=== PATIENT | female | born 1975 | race Caucasian/White ===

== ENCOUNTER 2020-06-16 15:41 | Emergency (ER) | payer OTHER, SELFPAY ==
[2020-06-16 16:58] VITALS: BP 138/84; PULSE 98; RESP 18; TEMP 36; O2SAT 100
--- NOTE | 2020-06-16 18:18 | PC.NURSE ---
Pt noted to be getting into a vehicle that had pulled up in the [address] outside of ED. Pt had been in and out of doors multiple times prior and after triage assessment.
== END 2020-06-16 18:20 | disposition left against medical advice (07) ==
LOC: ANHED 18:45
PROVIDERS: PCP Physician Assistant
DX: R50.9 Fever, unspecified (principal)
CPT/HCPCS: 99199

== ENCOUNTER 2023-09-23 17:55 | Emergency (ER) | payer OTHER, SELFPAY ==
[2023-09-23] VITALS (12 sets, daily range): BP systolic 150–179; BP diastolic 86–103; PULSE 85; RESP 16; TEMP 36.9; O2SAT 99–100
--- NOTE | ~2023-09-23 | XR_ITS ---
XR chest 1V portable Ordering provider: Job Crawford MD History: 48 years Female with . sob/chest pain x1 month . Comparison: June 06 2009 FINDINGS: MEDIASTINUM: The cardiac silhouette is not enlarged. LUNGS: No infiltrates, effusions or pneumothorax. Slightly prominent markings in the left lower lobe area. OTHER: No free air under the diaphragm. Degenerative changes of the spine. Postoperative changes in the right humerus. IMPRESSION: No acute cardiopulmonary pathology. Reviewed, dictated and finalized at location A.
--- NOTE | 2023-09-23 18:26 | ED.GENADULT ---
HPI - General Adult General Chief complaint: Extremity Problem,Nontraumatic Stated complaint: left leg swelling Time Seen by Provider: 09/23/23 18:08 Source: patient Mode of arrival: ambulatory Limitations: no limitations History of Present Illness HPI narrative: Patient is a 48-year-old female with left greater than right lower extremity edema chronically for the past 3 years. She also has chronic small nonhealing openings on the legs which are also present for the past 3 years. She says it is worse at this time. She also has some nodules which are chronic as well. And she has some spots on her face. All in all she is complaining of concerns about sepsis. Her primary doctor sent her to the ER at this time as they cannot get her into the office right away. She also has a cough and congestion for the past week. Onset (ago): year(s) (3) Location: lower extremity ( Bilateral; left worse than right) Radiation: non-radiation Severity: moderate Severity scale (1-10): 5 Quality: aching Pain Consistency: intermittent Relieving factors: none and other ( she takes Lasix daily) Exacerbating factors: other ( she has a remote history of methamphetamine use) Associated symptoms: denies other symptoms Treatments prior to arrival: none Related Data Home Medications Medication Instructions Recorded Confirmed folic acid 1 mg tablet 1 mg PO DAILY 09/23/23 09/23/23 furosemide 40 mg tablet 40 mg PO TID 09/23/23 09/23/23 Allergies Allergy/AdvReac Type Severity Reaction Status Date / Time naproxen Allergy Mild N/V Unverified 06/16/20 17:03 ibuprofen Allergy Unknown makes Verified 06/16/20 17:03 heart flutter Penicillins Allergy Unknown Unknown Verified 06/16/20 17:03 codeine AdvReac Unknown Nausea Unverified 06/16/20 17:03 CEFADROXIL HYDRATE Allergy Unknown Elevates Uncoded 06/16/20 17:03 B/P PMFSH Social History Social History Substance use type: methamphetamine Gender identity (if verbalized by the patient): Female Exam Const: General: no acute distress Nutritional Appearance: well nourished Orientation/consciousness: patient oriented x3 Limitations: no limitations HENMT: Head: normal to inspection Ears: external ears normal Face/Nose/Sinus: Normal external nose present Eyes: Conjunctivae: conjunctivae normal Pupils: Equal, round and reactive pupils present EOM: EOMs intact bilaterally Neck: Neck: normal visual inspection Chest: Chest palpation & inspection: normal inspection of the chest Resp: Effort & Inspection: normal respiratory effort and not labored Auscultation: clear to auscultation bilaterally Cardio: Rate: regular rate Rhythm: regular rhythm Heart sounds: no murmurs GI: Inspection: non-distended GI Palp: Yes Soft to palpation and No Tenderness to palpation present (GI) Auscultation: normal bowel sounds : General: Yes bladder normal to palpation Back/Spine/Pelvis: Back: no CVA tenderness Skin: General skin exam: No normal color Rashes: rash noted Wounds: wound noted Other: patient has bilateral lower extremity lymphedema in the left worse than the right chronically; there are multiple small dime-sized excoriated areas without signs of cellulitis locally on the legs; her right greater than the left lower extremity has redness; she has nodules on her hand of the right thenar area as well as some areas of the chin which are slightly excoriated inflamed Neuro: General: patient oriented x3 Cranial nerves: Yes Nystagmus not present Speech: normal speech Extrem: General: normal to inspection Psych: Mental Status: mental status grossly normal Affect: normal affect Attitude: cooperative Course Vital Signs Vital signs: Vital Signs Temperature 36.9 C 09/23/23 17:58 Pulse Rate 85 09/23/23 17:58 Respiratory Rate 16 09/23/23 17:58 Blood Pressure 166/101 H 09/23/23 17:58 Pulse Oximetry 100 09/23/23 17
[2023-09-23 18:43] LABS: Basophils Absolute Auto 0.09 K/mm3 (0.00-0.10); Basophils Percent Auto 1.2 % (0.0-1.0); Eosinophils Absolute Auto 0.14 K/mm3 (0.02-0.50); Eosinophils Percent Auto 1.9 % (1.0-6.0); Hematocrit 33.9 % (35.0-49.0); Hemoglobin 10.6 g/dL (12.0-15.0); Immature Granulocyte Absolute 0.01 K/mm3 (0.00-0.00); Immature Granulocyte Percent A 0.1 % (0.0-0.0); Lymphocytes Absolute Auto 2.29 K/mm3 (1.10-4.50); Lymphocytes Percent Auto 31.7 % (18.0-42.0); Mean Corpuscular HGB Conc 31.3 g/dL (32-36); Mean Corpuscular Hemoglobin 26.5 pg (27.0-31.0); Mean Corpuscular Volume 84.8 fL (78.0-102.0); Mean Platelet Volume 11.4 fl (9.2-11.8); Monocytes Percent Auto 5.5 % (2.0-11.0); Neutrophils Percent Auto 59.6 % (50.0-70.0); Platelet Count Result 224 K/mm3 (150-420); Red Cell Distribution Width 17.1 % (11.6-14.4); White Blood Count 7.2 K/mm3 (4.8-10.8)
--- NOTE | 2023-09-23 18:55 | PC.NURSE ---
assumed care. report received from Nehemias MOODY
--- NOTE | 2023-09-23 18:56 | PC.NURSE ---
warm blanket given, call cummings in reach. report to natalie fernando.
[2023-09-23 18:57] LABS: Alanine Aminotransferase 16 U/L (14-59); Albumin Level 3.4 g/dL (3.4-5.0); Alkaline Phosphatase 101 U/L (46-116); Anion Gap 9 mmol/L (4-12); Aspartate Amino Transferase 14 U/L (15-37); Bilirubin,Total 0.2 mg/dL (0.00-1.00); Blood Urea Nitrogen 13 mg/dL (7-18); Calcium 8.3 mg/dL (8.5-10.1); Carbon Dioxide 25 mmol/L (21-32); Chloride 104 mmol/L (98-108); Estimated CRCL calculation 49 ml/min; Estimated Glomerular Filt Rate 44; Glucose 74 mg/dL (70-99); Osmolality Calculated 285 mOsm/kg (285-295); Sodium 138 mmol/L (136-145); Total Protein 7.5 g/dL (6.4-8.2)
[2023-09-23 19:00] LABS: Lactic Acid Reflex 1.2 mmol/L (0.4-2.0)
--- NOTE | 2023-09-23 19:05 | PC.NURSE ---
patient is resting on stretcher. all lab work has posted. ER provider notified.
[2023-09-23] MEDS: POTASSIUM CHLORIDE 20 MEQ ER TABLET PO (19:29)
[2023-09-23] MEDS: SULFAMETHOXAZOLE/TRIMETHOPRIM 800/160 MG DS TABLET 1 TAB PO (19:29)
--- NOTE | 2023-09-30 12:12 | PC.NURSE ---
final blood culture reports x2 reviewed. no growth after 5 days. no change in plan of care
--- NOTE | 2023-09-30 12:17 | PC.NURSE ---
final blood culture reports x2 reviewed. no growth after 5 days. no change in plan of care
== END 2023-09-23 19:45 | disposition home or self-care (01) ==
PROVIDERS: Emergency Provider Emergency Medicine; PCP Nurse Practitioner Family
DX: L03.119 Cellulitis of unspecified part of limb (principal); R60.0 Localized edema; Z79.899 Other long term (current) drug therapy
CPT/HCPCS: 36415; 71045; 80053; 83605; 85025; 87040; 99283; A9270

== ENCOUNTER 2023-09-30 17:39 | Emergency (ER) | payer OTHER, SELFPAY ==
[2023-09-30] VITALS (17 sets, daily range): BP systolic 140–187; BP diastolic 75–109; PULSE 80; RESP 24; TEMP 36.4; O2SAT 96–100
--- NOTE | ~2023-09-30 | CT_ITS ---
CT abdomen pelvis wo con Ordering provider: Job Crawford MD History: 48 years Female with . Onset today, abdominal pain/nausea/vomiting/diarrhea . Comparison: None. Technique: CT abdomen and pelvis with IV and without oral contrast. Automated exposure control and it erative reconstruction technique were employed. The dose-length product was 375.09 mGy-cm. Findings: Left breast implant. VISUALIZED LOWER CHEST: Normal. Possible tiny nodule in the middle lobe. UPPER ABDOMINAL ORGANS: Liver: Hepatomegaly. Slightly dilated CBD measuring 1.1 cm. Gallbladder: Status post cholecystectomy. Spleen: Normal. Stomach/duodenum: Postoperative changes in the stomach. Pancreas: Normal. Adrenals: Normal. Kidneys: Normal. PELVIC ORGANS: The bladder is normal. BOWEL AND MESENTERY: Colon: No evidence of diverticulitis. Appendix is not demonstrated. Small Bowel: Dilated small bowel is noted with thickening seen in the pelvis. This thickening may ind icate ischemia versus inflammatory changes.. Crohn's disease cannot be excluded. Peritoneum/mesentery: No free air seen. Minimal ascites is seen in the right and left paracolic gutte r and around the liver. Minimal fluid seen in the pelvis. No mesenteric lymphadenopathy. RETROPERITONEUM: Mild atheromatous disease of the abdominal aorta. No retroperitoneal lymphadenopat hy. Small para-aortic lymph nodes are noted. MUSCULOSKELETAL: Superficial soft tissues: A inguinal lymph nodes are noted with the largest on the right side measure s 1.7 cm. The superficial soft tissues are normal. Bones: Age appropriate degenerative changes of the spine. IMPRESSION: 1. Dilated small bowel with thickening distally suggestive of obstruction. An area of thickened sonam l in the pelvis may indicate ischemia versus inflammatory changes or Crohn's disease. 2. Minimal fluid in the pelvis, paracolic gutters and around the liver. Reviewed, dictated and finalized at location A. IMPRESSION: 1. Dilated small bowel with thickening distally suggestive of obstruction. An area of thickened bowel in the pelvis may indicate ischemia versus inflammatory changes or Crohn's disease. 2. Minimal fluid in the pelvis, paracolic gutters and around the liver.
--- NOTE | ~2023-09-30 | XR_ITS ---
XR abdomen gastric tube insert Ordering provider: Job Crawford MD History: . NG TUBE placement . Comparison: None. FINDINGS: The nasogastric tube is seen in the distal esophagus. BOWEL: Slightly dilated bowel loops in the upper abdomen with air-fluid level. Follow-up advised. ORGANOMEGALY: None. SIGNIFICANT PATHOLOGIC CALCIFICATIONS: None. OTHER: No free air is seen under the diaphragm. IMPRESSION: NG tube in the distal esophagus. Dilated small bowel loops. Follow-up advised. Reviewed, dictated and finalized at location A.
--- NOTE | ~2023-09-30 | XR_ITS ---
XR abdomen gastric tube rechec Ordering provider: Job Crawford MD History: . NG TUBE RE CHECK. . Comparison: September 30, 2023 FINDINGS/impression: The nasogastric tube is advanced slightly compared to the previous examination but the sidehole is at gastroesophageal junction. Advancement by about 2 to 3 cm is advised. BOWEL: Slightly dilated bowel loops. Reviewed, dictated and finalized at location A.
--- NOTE | 2023-09-30 17:49 | ED.ABDPAIN ---
HPI - Abdominal Pain General Chief Complaint: Abdominal Pain Stated Complaint: abdominal pain Time Seen by Provider: 09/30/23 17:49 Source: patient Mode of arrival: ambulatory Limitations: no limitations History of Present Illness HPI narrative: Patient is a 48-year-old female with mid epigastric abdominal pain and lower abdominal pain for the past day. She is having associated nausea and vomiting. She had diarrhea today. Normal bowel movement yesterday. Patient has chronic lower extremity edema and lymphedema. She is on antibiotics for bilateral lower extremity cellulitis from the other day of Bactrim. MD elicited complaint: abdominal pain Pertinent past history: none Onset (ago): day(s) (1) Pain Consistency: constant Location: diffuse Severity: moderate Pain scale (0-10): 8 Quality: cramping, stabbing, fullness and sharp Radiation: none Migration to: no migration Exacerbating factors: nothing Relieving factors: nothing Associated symptoms: nausea, vomiting and diarrhea Related Data Home Medications Medication Instructions Recorded Confirmed furosemide 40 mg tablet 40 mg PO TID 09/23/23 09/30/23 Allergies Allergy/AdvReac Type Severity Reaction Status Date / Time naproxen Allergy Mild N/V Verified 09/30/23 18:58 ibuprofen Allergy Unknown makes Verified 09/30/23 18:58 heart flutter Penicillins Allergy Unknown Unknown Verified 09/30/23 18:58 codeine AdvReac Unknown Nausea Verified 09/30/23 18:58 CEFADROXIL HYDRATE Allergy Unknown Elevates Uncoded 06/16/20 17:03 B/P Review of Systems Review of Systems: All systems reviewed & are unremarkable except as noted in HPI and below Constitutional: Constitutional: Reports no additional constitutional complaints Eyes: Eyes: Reports no additional eye complaints ENT: Reports system reviewed and no additional complaints, except as documented Cardiovascular: Cardiovascular: Reports no additional cardiovascular complaints Respiratory: Respiratory: Reports no additional respiratory complaints Gastrointestinal: Gastrointestinal: Reports no additional gastrointestinal complaints Genitourinary: Genitourinary: Reports no additional female genitourinary complaints Musculoskeletal: Musculoskeletal: Reports no additional musculoskeletal complaints Integumentary/Breasts: Skin/Breast: Reports system reviewed and no additional complaints, except as docu Neurologic: Reports system reviewed and no additional complaints, except as documented Psychiatric: Psychiatric: Reports no additional psychiatric complaints Endocrine: Endocrine: Reports no additional endocrine complaints Hematologic/Lymphatic: Hematologic/Lymphatic: Reports no additional hematologic/lymphatic complaints Allergic/Immunologic: Allergic/Immunologic: Reports no additional allergic/immunologic complaints PMFSH Social History Social History Substance use type: methamphetamine Gender identity (if verbalized by the patient): Female Exam Const: General: ill appearing Nutritional Appearance: well nourished Orientation/consciousness: patient oriented x3 HENMT: Head: normal to inspection Ears: external ears normal Face/Nose/Sinus: Normal external nose present Eyes: Conjunctivae: conjunctivae normal Pupils: Equal, round and reactive pupils present EOM: EOMs intact bilaterally Neck: Neck: normal visual inspection Chest: Chest palpation & inspection: normal inspection of the chest Resp: Effort & Inspection: normal respiratory effort and not labored Auscultation: clear to auscultation bilaterally Cardio: Rate: regular rate Rhythm: regular rhythm Heart sounds: no murmurs GI: Inspection: distended GI Palp: Yes Soft to palpation, Yes Tenderness to palpation present (GI) ( Diffuse), Yes Guarding due to palpation present (GI), No Rigid due to palpation, No Hernia present, Yes Palpable mass present ( mid abdomen) and Yes Rebound
[2023-09-30 18:30] LABS: Basophils Absolute Auto 0.06 K/mm3 (0.00-0.10); Basophils Percent Auto 0.5 % (0.0-1.0); Eosinophils Absolute Auto 0.06 K/mm3 (0.02-0.50); Eosinophils Percent Auto 0.5 % (1.0-6.0); Hematocrit 41.2 % (35.0-49.0); Hemoglobin 12.8 g/dL (12.0-15.0); Immature Granulocyte Absolute 0.05 K/mm3 (0.00-0.00); Immature Granulocyte Percent A 0.5 % (0.0-0.0); Lymphocytes Absolute Auto 1.49 K/mm3 (1.10-4.50); Lymphocytes Percent Auto 13.6 % (18.0-42.0); Mean Corpuscular HGB Conc 31.1 g/dL (32-36); Mean Corpuscular Hemoglobin 26.2 pg (27.0-31.0); Mean Corpuscular Volume 84.4 fL (78.0-102.0); Mean Platelet Volume 10.6 fl (9.2-11.8); Monocytes Absolute Auto 0.58 K/mm3 (0.10-0.90); Monocytes Percent Auto 5.3 % (2.0-11.0); Neutrophils Absolute Auto 8.73 K/mm3 (1.70-7.20); Neutrophils Percent Auto 79.6 % (50.0-70.0); Platelet Count Result 307 K/mm3 (150-420); Red Blood Count 4.88 M/mm3 (4.20-5.40); Red Cell Distribution Width 16.8 % (11.6-14.4)
[2023-09-30] MEDS: ONDANSETRON INJ 4 MG/2 ML VIAL IV PUSH ×2 (18:35→22:55)
[2023-09-30] MEDS: MORPHINE SULFATE (*CRX) 4 MG/ML INJ IV PUSH ×3 (18:35→22:55)
[2023-09-30 18:46] LABS: INR 0.9; Partial Thromboplastin Time 24.7 Sec (23.9-30.70); Prothrombin Time 9.7 Seconds (9.50-12.1)
[2023-09-30 18:48] LABS: Alanine Aminotransferase 21 U/L (14-59); Albumin Level 3.3 g/dL (3.4-5.0); Alkaline Phosphatase 114 U/L (46-116); Anion Gap 9 mmol/L (4-12); Aspartate Amino Transferase 12 U/L (15-37); Bilirubin,Total 0.2 mg/dL (0.00-1.00); Blood Urea Nitrogen 12 mg/dL (7-18); Calcium 8.3 mg/dL (8.5-10.1); Carbon Dioxide 23 mmol/L (21-32); Chloride 104 mmol/L (98-108); Estimated CRCL calculation 51 ml/min; Estimated Glomerular Filt Rate 46; Glucose 105 mg/dL (70-99); Lipase 30 U/L (16-77); Osmolality Calculated 281 mOsm/kg (285-295); Potassium 4.1 mmol/L (3.5-5.1); Sodium 136 mmol/L (136-145); Total Protein 7.3 g/dL (6.4-8.2); Troponin I 5.8 ng/L (0.00-60.4)
[2023-09-30 18:52] LABS: Lactic Acid Reflex 0.9 mmol/L (0.4-2.0)
[2023-09-30 19:37] LABS: Appearance Urine Clear (Clear); Bilirubin Urine Negative (Negative); Blood Urine Negative (Negative); Color Urine Light Yellow (Yellow); Glucose Urine UA Negative (Negative); Ketones Urine Negative (Negative); Leukocyte Esterase Ur Negative LEU/UL (Negative); Nitrate Urine Negative (Negative); Protein Urine Negative (Negative); Specific Grav Ur 1.015 (1.010-1.020); Urobilinogen Urine 0.2 mg/dL (0.2-1.0)
[2023-09-30 19:38] LABS: Add Urine Microscopic? NO
[2023-09-30 19:44] LABS: Amphetamine Screen Urine Negative (Negative); Barbiturate Screen Urine Negative (Negative); Benzodiazepines Screen Urine Positive (Negative); Cannabinoid Screen Urine Negative (Negative); Cocaine Screen Urine Negative (Negative); Methadone Screen Urine Negative (Negative); Opiate Screen Urine Positive (Negative); Phencyclidine Screen Urine Negative (Negative)
[2023-09-30] MEDS: SODIUM CHLORIDE 0.9% IV 1,000 ML 999 ML IV CONT (20:21)
[2023-09-30] MEDS: SODIUM CHLORIDE 0.9% IV 1,000 ML 125 ML IV CONT (23:38)
== END 2023-10-01 00:30 | disposition short-term general hospital (02) ==
PROVIDERS: Emergency Provider Emergency Medicine; PCP Nurse Practitioner Family
DX: K56.609 Unspecified intestinal obstruction, unspecified as to partial versus complete obstruction (principal); N17.9 Acute kidney failure, unspecified
CPT/HCPCS: 36415; 74176; 80053; 80307; 81003; 83605; 83690; 84484; 85025; 85610; 85730; 96361; 96374; 96375; 96376; 99285; J2270; J2405; J7030

== ENCOUNTER 2023-11-09 17:46 | Emergency (ER) | payer OTHER, SELFPAY ==
--- NOTE | ~2023-11-09 | XR_ITS ---
EXAMINATION: XR abdomen obstructive series DATE: 11/09/2023 18:19 INDICATION: Mid abdominal pain TECHNIQUE: Frontal supine and upright views of the abdomen were obtained. COMPARISON: None. FINDINGS: Small amount of gas and stool scattered throughout the colon. No dilated loops of gas-filled bowel to suggest obstruction. Cholecystectomy clips in right upper quadrant. Suture line and surgical clips i n the epigastric region with additional anastomotic suture line in the left pelvis suggesting prior g astric bypass procedure. No free intraperineal gas. Visualized mid to lower lungs are clear. No pleur al effusion. Heart size is normal. Mild lumbar levocurvature. IMPRESSION: 1. No free intraperitoneal gas or dilated gas-filled loops of bowel to suggest obstruction. Reviewed, dictated and finalized at location A.
[2023-11-09 17:50] VITALS: BP 193/106; PULSE 87; RESP 16; TEMP 36.4; O2SAT 100
--- NOTE | 2023-11-09 17:55 | ED.ABDPAIN ---
HPI - Abdominal Pain General Chief Complaint: Abdominal Pain Stated Complaint: abd pain Source: patient Mode of arrival: ambulatory Limitations: no limitations History of Present Illness HPI narrative: 48-year-old female with a history of lymphedema left greater than the right, parietal hernia with herniation of the small bowel with obstruction status post surgery with resection of the small intestine on 09/30/2023 picked up her grandchild yesterday and subsequently developed pain over the abdominal suture line. Subsequently she has been having intermittent pain. She had nausea and 1 episode of vomiting. She had bowel movement today. No abdominal distension. No fever or chills. She has a prior history of cholecystectomy and gastric bypass surgery. MD elicited complaint: abdominal pain Pertinent past history: other ( recent hernia surgery on 09/29/2024) Onset (ago): day(s) ( 1 day) Pain Consistency: intermittent Location: epigastric Severity: moderate Quality: aching Radiation: none Migration to: no migration Exacerbating factors: nothing Relieving factors: nothing Associated symptoms: nausea and vomiting Related Data Patient : No Home Medications Medication Instructions Recorded Confirmed furosemide 40 mg tablet 40 mg PO TID 09/23/23 11/09/23 atenolol 1 tablet PO DAILY 11/09/23 11/09/23 Allergies Allergy/AdvReac Type Severity Reaction Status Date / Time naproxen Allergy Mild N/V Verified 11/09/23 17:55 ibuprofen Allergy Unknown makes Verified 11/09/23 17:55 heart flutter Penicillins Allergy Unknown Unknown Verified 11/09/23 17:55 codeine AdvReac Unknown Nausea Verified 11/09/23 17:55 CEFADROXIL HYDRATE Allergy Unknown Elevates Uncoded 11/09/23 17:55 B/P Review of Systems Review of Systems: All systems reviewed & are unremarkable except as noted in HPI and below Constitutional: Constitutional: Reports as per HPI and Reports no additional constitutional complaints Eyes: Eyes: Reports as per HPI and Reports no additional eye complaints ENT: Reports system reviewed and no additional complaints, except as documented and Reports as per HPI Cardiovascular: Cardiovascular: Reports as per HPI and Reports no additional cardiovascular complaints Respiratory: Respiratory: Reports as per HPI and Reports no additional respiratory complaints Gastrointestinal: Gastrointestinal: Reports as per HPI and Reports no additional gastrointestinal complaints Comments: epigastric abdominal pain located over the incision site Genitourinary: Genitourinary: Reports no additional female genitourinary complaints and Reports as per HPI Musculoskeletal: Musculoskeletal: Reports no additional musculoskeletal complaints and Reports as per HPI Integumentary/Breasts: Skin/Breast: Reports system reviewed and no additional complaints, except as docu and Reports as per HPI Neurologic: Reports system reviewed and no additional complaints, except as documented and Reports as per HPI Psychiatric: Psychiatric: Reports no additional psychiatric complaints and Reports as per HPI Endocrine: Endocrine: Reports no additional endocrine complaints and Reports as per HPI Hematologic/Lymphatic: Hematologic/Lymphatic: Reports no additional hematologic/lymphatic complaints and Reports as per HPI Allergic/Immunologic: Allergic/Immunologic: Reports no additional allergic/immunologic complaints and Reports as per HPI PMFSH Past Medical History Medical History (Updated 11/09/23 @ 18:45 by Keenan Villagomez MD) Abdominal hernia Small bowel obstruction Surgical History Surgical History (Updated 11/09/23 @ 18:09 by Keenan Villagomez MD) History of hernia surgery Social History Social History Substance use type: methamphetamine Gender identity (if verbalized by the patient): Female Exam Narrative: blood pressure is 193/106 Const: General: no
[2023-11-09 18:31] VITALS: BP 170/112; O2SAT 100
--- NOTE | 2023-11-09 18:38 | PC.NURSE ---
Pt resting comfortably. Waiting on xray results.
[2023-11-09 18:43] VITALS: BP 166/102; O2SAT 100
== END 2023-11-09 18:55 | disposition home or self-care (01) ==
PROVIDERS: Emergency Provider Internal Medicine Critical Care Medicine; PCP Nurse Practitioner Family
DX: R10.13 Epigastric pain (principal); I10 Essential (primary) hypertension; Z90.49 Acquired absence of other specified parts of digestive tract; Z79.899 Other long term (current) drug therapy
CPT/HCPCS: 74019; 99283

== ENCOUNTER 2024-01-25 17:02 | Emergency (ER) | payer OTHER, SELFPAY ==
[2024-01-25 17:03] VITALS: BP 165/93; PULSE 94; RESP 20; TEMP 36.6; O2SAT 100
--- NOTE | 2024-01-25 17:12 | ED_ITS ---
HPI - Wound/Laceration General Chief Complaint: Wound/Laceration Stated Complaint: cut on left leg Time Seen by Provider: 01/25/24 17:08 Source: patient Mode of arrival: ambulatory Limitations: no limitations History of Present Illness HPI narrative: 48-year-old female with a history of small-bowel obstruction status post surgery on 09/30/2023, parietal hernia, lymphedema bilateral lower extremity, status post cholecystectomy status post gastric bypass surgery presents to the ED with -- v-shaped laceration over the left holloway. She hit her leg with a a shower while attempting to remove weeds from her driveway. Profuse bleeding from the left holloway. No other injuries noted. Does not remember having taken a tetanus shot in the last 5 years. Onset (ago): hour(s) ( 1 hour ago) Extremity Location: Left: lower leg Body four view annotation: 1. which a bed laceration over the left holloway measuring [address]: home Context: accidental Associated symptoms: pain Related Data Home Medications Medication Instructions Recorded Confirmed furosemide 40 mg tablet 40 mg PO TID 09/23/23 11/09/23 atenolol 1 tablet PO DAILY 11/09/23 11/09/23 Allergies Allergy/AdvReac Type Severity Reaction Status Date / Time naproxen Allergy Mild N/V Verified 11/09/23 17:55 ibuprofen Allergy Unknown makes Verified 11/09/23 17:55 heart flutter Penicillins Allergy Unknown Unknown Verified 11/09/23 17:55 codeine AdvReac Unknown Nausea Verified 11/09/23 17:55 CEFADROXIL HYDRATE Allergy Unknown Elevates Uncoded 11/09/23 17:55 B/P Review of Systems Review of Systems: All systems reviewed & are unremarkable except as noted in HPI and below Constitutional: Constitutional: Reports as per HPI and Reports no additional constitutional complaints Eyes: Eyes: Reports as per HPI and Reports no additional eye complaints ENT: Reports system reviewed and no additional complaints, except as documented and Reports as per HPI Cardiovascular: Cardiovascular: Reports as per HPI and Reports no additional cardiovascular complaints Respiratory: Respiratory: Reports as per HPI and Reports no additional respiratory complaints Gastrointestinal: Gastrointestinal: Reports as per HPI and Reports no additional gastrointestinal complaints Genitourinary: Genitourinary: Reports no additional female genitourinary complaints and Reports as per HPI Musculoskeletal: Musculoskeletal: Reports no additional musculoskeletal complaints and Reports as per HPI Integumentary/Breasts: Comments: V shaped laceration over the left holloway measuring 4 cm Neurologic: Reports system reviewed and no additional complaints, except as documented and Reports as per HPI Psychiatric: Psychiatric: Reports no additional psychiatric complaints and Reports as per HPI Endocrine: Endocrine: Reports no additional endocrine complaints and Reports as per HPI Hematologic/Lymphatic: Hematologic/Lymphatic: Reports no additional hematologic/lymphatic complaints and Reports as per HPI Allergic/Immunologic: Allergic/Immunologic: Reports no additional allergic/immunologic complaints and Reports as per HPI [facility] Past Medical History Medical History Abdominal hernia Small bowel obstruction Surgical History Surgical History History of hernia surgery Social History Social History Substance use type: methamphetamine Gender identity (if verbalized by the patient): Female Exam Const: General: no acute distress Orientation/consciousness: patient oriented x3 Limitations: no limitations HENMT: Head: normal to inspection Ears: external ears normal Face/Nose/Sinus: Normal external nose present Face and sinus: normal facial exam Mouth: Yes Normal oral and palatal mucosa present Throat: posterior oropharynx normal Eyes: Conjunctivae: conjunctivae normal Pupils: Equal, round and reactive pupils present Direct Ophthalmoscopy: no photophobia Neck: Neck: normal visual inspection and no lymphadenopathy Chest: Chest palpation & inspection: normal inspection of the chest Resp: Effort & Inspection: normal respiratory effort Auscultation: clear to auscultation bilaterally Cardio: Rate: regular rate Rhythm: regular rhythm GI: GI Palp: Yes Soft to palpation Auscultation: normal bowel sounds Other: vertical incision in the mid abdomen. No tenderness/rigidity / rebound. Back/Spine/Pelvis: Back: no CVA tenderness Skin: Rashes: no rashes Wounds: no wounds Other: Multiple hypopigmented patches on the face. V-shaped laceration of the left holloway. Laceration is superficial. Leg Has lymphedema Neuro: General: patient oriented x3, moves all extremities, no meningeal signs, no focal motor deficits and CN's II-XI intact bilaterally Cranial nerves: Yes Nystagmus not present Speech: normal speech Gait exam (Neuro): Normal gait present Extrem: General: normal to inspection and no clubbing, cyanosis or edema Psych: Mental Status: mental status grossly normal Affect: normal affect Attitude: cooperative Course Course Emergency Course: Superficial laceration left holloway with lymphedema of the legs. Vital Signs Vital signs: Vital Signs Temperature 36.6 C 01/25/24 17:03 Pulse Rate 94 01/25/24 17:03 Respiratory Rate 20 01/25/24 17:03 Blood Pressure 165/93 H 01/25/24 17:03 Pulse Oximetry 100 01/25/24 17:03 Oxygen Delivery Room Air 01/25/24 17:03 Temperature 36.6 C 01/25/24 17:03 Pulse Rate 94 01/25/24 17:03 Respiratory Rate 20 01/25/24 17:03 Blood Pressure 165/93 H 01/25/24 17:03 Pulse Oximetry 100 01/25/24 17:03 Oxygen Delivery Room Air 01/25/24 17:03 Procedures Laceration Laceration 1: Date: 01/25/24 Time: 17:28 Site: other ( holloway laceration) Side (If applicable): left Size (cm): 4 Description: irregular Depth: simple, single layer ====== Skin Level ====== Skin layer closed with: dermabond ====== Subcutaneous Layer ====== ====== Muscle Layer ====== ====== Tendon Layer ====== MDM - Wound/Laceration MDM Narrative Medical decision making narrative: left holloway laceration Differential Diagnosis Differential diagnosis: Likely abrasion Medical Records Attestation: I reviewed the patient's medical records. Lab Data Attestation: I reviewed the patient's lab results. Discharge Plan Discharge Clinical Impression: Laceration Patient Disposition: Home, Self-Care Condition: Stable Instructions: Antibiotic Form, Laceration (ED) Patient Language: Czech Prescriptions: No Action atenolol 1 tablet PO DAILY furosemide 40 mg tablet 40 mg PO TID sulfamethoxazole-trimethoprim [Bactrim DS] 800-160 mg tablet 1 tablet PO BID 10 Days Qty: 20 0RF mupirocin 2 % ointment 1 applic topical BID PRN (Reason: rash) Qty: 22 0RF Follow-up/Referrals: Tereza,JONO Farmer [Primary Care Provider] - Time of Disposition: 17:44
[2024-01-25] MEDS: TETANUS,DIPHTHERIA,AC PERTUSSIS ADULT 0.5 ML (ADACEL) IM (17:36)
== END 2024-01-25 17:48 | disposition home or self-care (01) ==
LOC: CHSED 17:46
PROVIDERS: Emergency Provider Internal Medicine Critical Care Medicine; PCP Nurse Practitioner Family
DX: S81.812A Laceration without foreign body, left lower leg, initial encounter (principal); Z90.49 Acquired absence of other specified parts of digestive tract; Z23 Encounter for immunization; W45.8XXA Other foreign body or object entering through skin, initial encounter
CPT/HCPCS: 12002; 90471; 90715; 99282

== ENCOUNTER 2024-02-12 19:44 | Emergency (ER) | payer OTHER, SELFPAY ==
[2024-02-12] VITALS (23 sets, daily range): BP systolic 133–173; BP diastolic 80–101; PULSE 68–89; RESP 12–23; TEMP 36.8–37.2; O2SAT 97–100
--- NOTE | ~2024-02-12 | CT_ITS ---
EXAMINATION: CT abdomen pelvis w con DATE: 02/12/2024 20:50 INDICATION: MIDLINE ABD PAIN X 4 DAYS. HX OF BOWEL OBSTRUCTION. TECHNIQUE: Computed tomography (CT) of the abdomen and pelvis was performed with 100 mL Omnipaque-350 intravenous contrast. Automated exposure control and iterative reconstruction technique were employe d. The dose-length product was 281.94 mGy-cm. COMPARISON: 09/30/2023. FINDINGS: Lower thorax: Left breast implant. Subsegmental anterior right middle lobe atelectasis. Liver: Normal. Biliary/Gallbladder: Gallbladder is absent. Stable mild intra and extrahepatic bile duct dilation. Pancreas: No mass or duct dilation. Spleen: Normal. Adrenals:No mass. Kidneys: No suspicious mass, obstructing stone, or hydronephrosis. Bilateral renal cortical thinning/ scarring. GI tract: Prior gastric bypass surgery. Uncomplicated appearing lower midline small bowel anastomosis . No small or large bowel dilation. Appendix not confidently visualized. Mesentery/Peritoneum: No ascites, mass, or free air. Retroperitoneum: No mass. Atherosclerotic abdominal aortic and/or arterial calcifications. Pelvis: Normal urinary bladder. Absent uterus. Normal right ovary. 3.5 cm simple appearing left ovari an cyst. Soft Tissues: Moderate periumbilical ventral hernia containing a loop of small bowel, with mild surro unding stranding. Small fat-containing uncomplicated appearing upper abdominal ventral hernia. Bones: No acute osseous finding. IMPRESSION: Moderate periumbilical hernia containing a loop of unobstructed small bowel, with surrounding edema/i nflammatory change. 3.5 cm simple appearing left ovarian cyst. Recommend nonemergent but timely follow-up pelvic ultrasou nd for further characterization. Reviewed, dictated and finalized at location [facility] [employer] IMPRESSION: Moderate periumbilical hernia containing a loop of unobstructed small bowel, wi th surrounding edema/inflammatory change. 3.5 cm simple appearing left ovarian cyst. Recommend nonemergent but timely fol low-up pelvic ultrasound for further characterization.
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
[2024-02-12 20:18] LABS: Basophils Absolute Auto 0.11 K/mm3 (0.00-0.10); Basophils Percent Auto 1.1 % (0.0-1.0); Eosinophils Absolute Auto 0.16 K/mm3 (0.02-0.50); Eosinophils Percent Auto 1.5 % (1.0-6.0); Hematocrit 38.4 % (35.0-49.0); Hemoglobin 11.8 g/dL (12.0-15.0); Immature Granulocyte Absolute 0.04 K/mm3 (0.00-0.00); Immature Granulocyte Percent A 0.4 % (0.0-0.0); Mean Corpuscular HGB Conc 30.7 g/dL (32-36); Mean Corpuscular Hemoglobin 25.9 pg (27.0-31.0); Mean Corpuscular Volume 84.4 fL (78.0-102.0); Mean Platelet Volume 10.9 fl (9.2-11.8); Monocytes Absolute Auto 0.62 K/mm3 (0.10-0.90); Neutrophils Absolute Auto 6.42 K/mm3 (1.70-7.20); Platelet Count Result 350 K/mm3 (150-420); Red Blood Count 4.55 M/mm3 (4.20-5.40); Red Cell Distribution Width 14.6 % (11.6-14.4); White Blood Count 10.4 K/mm3 (4.8-10.8)
[2024-02-12 20:28] LABS: INR 0.9; Partial Thromboplastin Time 25.6 Sec (23.9-30.70); Prothrombin Time 9.8 Seconds (9.50-12.1)
[2024-02-12 20:30] LABS: Add Urine Microscopic? NO; Appearance Urine Clear (Clear); Bilirubin Urine Negative (Negative); Blood Urine Negative (Negative); Color Urine Light Yellow (Yellow); Glucose Urine UA Negative (Negative); Ketones Urine Negative (Negative); Leukocyte Esterase Ur Negative LEU/UL (Negative); Nitrate Urine Negative (Negative); Protein Urine Negative (Negative); Specific Grav Ur <= 1.005 (1.010-1.020); Urobilinogen Urine 0.2 mg/dL (0.2-1.0)
[2024-02-12 20:32] LABS: Alanine Aminotransferase 25 U/L (14-59); Albumin Level 3.1 g/dL (3.4-5.0); Alkaline Phosphatase 162 U/L (46-116); Anion Gap 8 mmol/L (4-12); Aspartate Amino Transferase 25 U/L (15-37); Bilirubin,Total 0.4 mg/dL (0.00-1.00); Blood Urea Nitrogen 14 mg/dL (7-18); Calcium 8.1 mg/dL (8.5-10.1); Carbon Dioxide 26 mmol/L (21-32); Chloride 103 mmol/L (98-108); Estimated CRCL calculation 57 ml/min; Estimated Glomerular Filt Rate 52; Glucose 53 mg/dL (70-99); Lipase 84 U/L (16-77); Osmolality Calculated 281 mOsm/kg (285-295); Potassium 4.9 mmol/L (3.5-5.1); Sodium 137 mmol/L (136-145); Total Protein 7.6 g/dL (6.4-8.2)
[2024-02-12] MEDS: ONDANSETRON INJ 4 MG/2 ML VIAL IV PUSH (20:33)
[2024-02-12] MEDS: SODIUM CHLORIDE 0.9% IV 1,000 ML 999 ML IV CONT (20:33)
[2024-02-12 20:34] LABS: Lactic Acid Reflex 0.8 mmol/L (0.4-2.0)
[2024-02-12] MEDS: MORPHINE SULFATE (*CRX) 4 MG/ML INJ IV PUSH ×2 (20:34→21:31)
[2024-02-12 20:40] LABS: Amphetamine Screen Urine Positive (Negative); Barbiturate Screen Urine Negative (Negative); Benzodiazepines Screen Urine Negative (Negative); Cannabinoid Screen Urine Negative (Negative); Cocaine Screen Urine Negative (Negative); Methadone Screen Urine Negative (Negative); Opiate Screen Urine Negative (Negative); Phencyclidine Screen Urine Negative (Negative)
[2024-02-12] MEDS: DEXTROSE 50% 25 GM/50 ML SYRINGE IV PUSH (20:51)
--- NOTE | 2024-02-12 20:51 | PC.NURSE ---
Pt returns from CT. Medicated with dextrose as ordered. PT tolerates well. Warm blanket provided. Call light in reach. Monitors reattached.
--- NOTE | 2024-02-12 21:29 | PC.NURSE ---
FSBS checked at 102 mg/dL at this time. Pt reports pain has returned and is severe. ERP aware and medication orders being entered at this time.
[2024-02-12 22:48] LABS: Glucose Point of Care 81 mg/dl (65-105)
[2024-02-12 22:48] LABS: Glucose Point of Care 102 mg/dl (65-105)
--- NOTE | 2024-02-12 22:50 | PC.NURSE ---
Pt up to restroom with steady gait.
[2024-02-12] MEDS: MORPHINE SULFATE (*CRX) 2 MG/ML INJ IV PUSH (23:11)
[2024-02-12] MEDS: DEXTROSE 5%/0.9% SOD CHL 1,000 ML 125 ML IV CONT (23:14)
--- NOTE | 2024-02-12 23:19 | PC.NURSE ---
Pt medicated as ordered. Blood cultures obtained. Mother leaving at this time. Remain awaiting bed assignment.
--- NOTE | 2024-02-12 23:40 | PC.NURSE ---
Spoke with amilcar Lopez at [place], hospitalist did not notify her of acceptance. Jessica to return call with bed information when available.
--- NOTE | 2024-02-12 23:54 | PC.NURSE ---
[facility] assignment 241 at [employer] [phone] for report.
[2024-02-13 00:09] VITALS: BP 131/80; PULSE 75; RESP 13; TEMP 36.8; O2SAT 98
== END 2024-02-13 00:21 | disposition short-term general hospital (02) ==
PROVIDERS: Emergency Provider Emergency Medicine; PCP Nurse Practitioner Family
DX: K42.9 Umbilical hernia without obstruction or gangrene (principal)
CPT/HCPCS: 36415; 74177; 80053; 80307; 81003; 82948; 83605; 83690; 85025; 85610; 85730; 87040; 96361; 96374; 96375; 96376; 99285; J2270; J2405; J7030; J7042; Q9967

== ENCOUNTER 2024-02-13 01:18 | Inpatient (IN) | payer OTHER, SELFPAY ==
--- NOTE | ~2024-02-13 | US_ITS ---
EXAMINATION: US venous doppler [facility] DATE: 02/14/2024 14:26 INDICATION: Left lower limb swelling and erythema TECHNIQUE: Grayscale ultrasound images without and with compression and Doppler ultrasound images of the left lower extremity veins were obtained. COMPARISON: None. FINDINGS: The visualized portions of left common femoral vein, profunda (deep) femoral vein, femoral vein, popl iteal vein, peroneal veins, posterior tibial veins, gastrocnemius vein and greater saphenous vein out flow are patent. Small Arreaga's cyst measuring 1.8 x 1.1 x 1.0 cm. IMPRESSION: 1. No deep venous thrombosis in the left lower limb. 2. Small left Arreaga's cyst. Reviewed, dictated and finalized at location B. [facility] INSPECTOR
--- NOTE | ~2024-02-13 | US_ITS ---
US transvaginal Ordering provider: Alta Taylor PA-C History: . simple appearing left ovarian cyst on CT . Comparison: None. Technique: endovaginal ultrasound of the pelvis (Doppler ultrasound interrogation techniques used as needed for this exam.) FINDINGS: UTERUS: Status post hysterectomy. CUL DE SAC: No free fluid. RIGHT OVARY: Normal in size measuring 4.8x 2.9x 3.4 cm. Normal echotexture. Doppler vascular flow pre sent. Septated cyst is seen with internal echoes which measures 2.9 x 2.2 x 2.3 cm. LEFT OVARY: Normal in size measuring 4.2x 4x 3.9 cm. Normal echotexture. Doppler vascular flow presen t. Cyst is seen with internal echoes which measures 3.2 x 3.1 x 3.8 cm. ADNEXA: Normal. No mass. IMPRESSION: Bilateral septated cysts with internal echoes suggestive of hemorrhagic cysts. Follow-up advised. Sta tus post hysterectomy. Otherwise, normal pelvic ultrasound. Reviewed, dictated and finalized at location A. WELDER IMPRESSION: Bilateral septated cysts with internal echoes suggestive of hemorrhagic cysts. Follow-up advised. Status post hysterectomy. Otherwise, normal pelvic ultrasoun d.
[2024-02-13 00:55] VITALS: BMI 23.9
--- NOTE | 2024-02-13 00:55 | ADMGEN ---
This patient, Amna Ramos, was admitted to 2 Medical Room 241-. Patient/family oriented to hospital policies and general routines including ID bracelet, bed and alarms, visiting hours, pain management, procedures, bathroom and other care routines, personal items, smoking policy, room service/diet, and visiting hours. Information on how to activate the Rapid Response Team has been discussed. Patient/Family are encouraged to report perceived risks to care and to ask questions if they do not understand what they are told or what they should do.
[2024-02-13 01:15] VITALS: BP 116/67; PULSE 62; RESP 20; TEMP 36.1; O2SAT 100
[2024-02-13] MEDS: SODIUM CHLORIDE 0.9% IV 1,000 ML 100 ML IV CONT ×3 (01:35→23:03)
[2024-02-13] MEDS: MORPHINE SULFATE (*CRX) 4 MG/ML INJ IV PUSH ×6 (01:42→23:03)
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
[2024-02-13 05:58] LABS: Basophils Absolute Auto 0.1 K/mm3 (0.0-0.1); Basophils Percent Auto 0.8 % (0.2-1.2); Eosinophils Absolute Auto 0.1 K/mm3 (0-0.3); Eosinophils Percent Auto 0.8 % (0-4.4); Hematocrit 31.7 % (37.0-47.0); Hemoglobin 9.7 g/dL (12.0-15.0); Immature Granulocyte Absolute 0.02 K/mm3 (0.00-0.031); Immature Granulocyte Percent A 0.3 % (0-0.5); Lymphocytes Percent Auto 32.4 % (18.3-44.2); Mean Corpuscular HGB Conc 30.6 g/dl (32-36); Mean Corpuscular Hemoglobin 26.2 pg (26-34); Mean Corpuscular Volume 85.7 fl (80-100); Mean Platelet Volume 11.1 fl (7.4-10.4); Monocytes Absolute Auto 0.6 K/mm3 (0.1-0.6); Monocytes Percent Auto 8.4 % (2.6-8.5); Neutrophils Absolute Auto 4.3 K/mm3 (1.3-6.7); Neutrophils Percent Auto 57.3 % (45.5-73.1); Platelet Count Result 290 k/mm3 (150-375); Red Cell Distribution Width 14.8 % (11.5-14.5); White Blood Count 7.4 K/mm3 (4.5-10.0)
[2024-02-13 06:12] LABS: Alanine Aminotransferase 188 U/L (6-35); Albumin Level 3.2 g/dL (3.5-5.1); Alkaline Phosphatase 177 U/L (38-126); Anion Gap 4 mmol/L (4-12); Aspartate Amino Transferase 386 U/L (14-36); Bilirubin,Total 0.4 mg/dL (0.2-1.3); Blood Urea Nitrogen 15 mg/dL (7-17); Calcium 7.7 mg/dL (8.4-10.2); Carbon Dioxide 25 mmol/L (22-30); Chloride 108 mmol/L (98-107); Estimated CRCL calculation 53 ml/min; Estimated Glomerular Filt Rate 48; Glucose 84 mg/dL (65-110); Potassium 4.5 mmol/L (3.4-5.0); Sodium 137 mmol/L (137-145)
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
[2024-02-13 07:52] VITALS: RESP 20; O2SAT 100
[2024-02-13] MEDS: FERROUS SULFATE 325 MG TABLET DR BY MOUTH (08:27)
[2024-02-13] MEDS: FOLIC ACID 1 MG TABLET PO (08:27)
[2024-02-13] MEDS: PANTOPRAZOLE 40 MG TABLET PO (08:27)
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
[2024-02-13 12:05] LABS: Glucose Point of Care 103 mg/dl (65-105)
[2024-02-13 14:00] VITALS: BP 130/67; PULSE 63; RESP 12; TEMP 36.8; O2SAT 96
[2024-02-13 14:31] LABS: Hepatitis B Surface Antigen Negative (Negative)
[2024-02-13 14:36] LABS: HAV RESULT Negative (Negative); Hepatitis B Core IgM Result Negative (Negative)
[2024-02-13 14:48] LABS: Hepatitis C Virus Antibody Negative (Negative)
[2024-02-13 18:27] LABS: Glucose Point of Care 138 mg/dl (65-105)
[2024-02-13 21:07] VITALS: BP 132/71; PULSE 63; RESP 20; TEMP 36.9; O2SAT 97
[2024-02-13 23:05] LABS: Glucose Point of Care 93 mg/dl (65-105)
[2024-02-14] MEDS: MORPHINE SULFATE (*CRX) 4 MG/ML INJ IV PUSH ×4 (05:06→20:27)
[2024-02-14 05:33] LABS: Basophils Absolute Auto 0.1 K/mm3 (0.0-0.1); Basophils Percent Auto 1.7 % (0.2-1.2); Eosinophils Absolute Auto 0.2 K/mm3 (0-0.3); Eosinophils Percent Auto 3.8 % (0-4.4); Hematocrit 31.7 % (37.0-47.0); Hemoglobin 9.6 g/dL (12.0-15.0); Immature Granulocyte Absolute 0.01 K/mm3 (0.00-0.031); Immature Granulocyte Percent A 0.2 % (0-0.5); Lymphocytes Absolute Auto 1.88 K/mm3 (0.9-3.2); Lymphocytes Percent Auto 35.9 % (18.3-44.2); Mean Corpuscular HGB Conc 30.3 g/dl (32-36); Mean Corpuscular Hemoglobin 25.9 pg (26-34); Mean Corpuscular Volume 85.4 fl (80-100); Mean Platelet Volume 11.1 fl (7.4-10.4); Monocytes Absolute Auto 0.5 K/mm3 (0.1-0.6); Monocytes Percent Auto 8.8 % (2.6-8.5); Neutrophils Absolute Auto 2.6 K/mm3 (1.3-6.7); Neutrophils Percent Auto 49.6 % (45.5-73.1); Platelet Count Result 257 k/mm3 (150-375); Red Blood Count 3.71 M/mm3 (4.2-5.4); Red Cell Distribution Width 15.1 % (11.5-14.5); White Blood Count 5.2 K/mm3 (4.5-10.0)
[2024-02-14 05:42] LABS: Alanine Aminotransferase 443 U/L (6-35); Albumin Level 3.2 g/dL (3.5-5.1); Alkaline Phosphatase 408 U/L (38-126); Anion Gap 4 mmol/L (4-12); Aspartate Amino Transferase 484 U/L (14-36); Bilirubin,Total 1.1 mg/dL (0.2-1.3); Blood Urea Nitrogen 13 mg/dL (7-17); Calcium 8.2 mg/dL (8.4-10.2); Carbon Dioxide 23 mmol/L (22-30); Chloride 109 mmol/L (98-107); Estimated CRCL calculation 57 ml/min; Estimated Glomerular Filt Rate 53; Glucose 78 mg/dL (65-110); Potassium 4.3 mmol/L (3.4-5.0); Sodium 136 mmol/L (137-145)
[2024-02-14 06:00] VITALS: BP 167/73; PULSE 74; RESP 20; TEMP 36.8; O2SAT 97
[2024-02-14 06:16] LABS: Glucose Point of Care 86 mg/dl (65-105)
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
[2024-02-14] MEDS: FUROSEMIDE 40 MG TABLET PO (08:12)
[2024-02-14] MEDS: FOLIC ACID 1 MG TABLET PO (08:12)
[2024-02-14] MEDS: amLODIPine BESYLATE 5 MG TABLET PO (08:12)
[2024-02-14] MEDS: FERROUS SULFATE 325 MG TABLET DR BY MOUTH (08:12)
[2024-02-14] MEDS: SODIUM CHLORIDE 0.9% IV 1,000 ML 100 ML IV CONT ×2 (08:13→23:29)
[2024-02-14] MEDS: PANTOPRAZOLE 40 MG TABLET PO (08:13)
[2024-02-14 12:04] LABS: Glucose Point of Care 83 mg/dl (65-105)
[2024-02-14 13:52] VITALS: BP 118/69; PULSE 71; RESP 16; TEMP 36.4; O2SAT 98
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
[2024-02-14 17:55] LABS: Glucose Point of Care 119 mg/dl (65-105)
[2024-02-14 20:56] VITALS: BP 112/57; PULSE 75; RESP 20; TEMP 37.3; O2SAT 100
[2024-02-14 23:32] LABS: Glucose Point of Care 123 mg/dl (65-105)
[2024-02-15] MEDS: MORPHINE SULFATE (*CRX) 4 MG/ML INJ IV PUSH ×2 (01:05→05:43)
[2024-02-15 05:33] LABS: Basophils Absolute Auto 0.1 K/mm3 (0.0-0.1); Basophils Percent Auto 1.4 % (0.2-1.2); Eosinophils Absolute Auto 0.2 K/mm3 (0-0.3); Hematocrit 32.4 % (37.0-47.0); Hemoglobin 9.7 g/dL (12.0-15.0); Immature Granulocyte Absolute 0.02 K/mm3 (0.00-0.031); Immature Granulocyte Percent A 0.4 % (0-0.5); Lymphocytes Absolute Auto 1.96 K/mm3 (0.9-3.2); Mean Corpuscular HGB Conc 29.9 g/dl (32-36); Mean Corpuscular Hemoglobin 25.5 pg (26-34); Mean Corpuscular Volume 85.3 fl (80-100); Mean Platelet Volume 11.4 fl (7.4-10.4); Monocytes Absolute Auto 0.5 K/mm3 (0.1-0.6); Monocytes Percent Auto 9.2 % (2.6-8.5); Neutrophils Absolute Auto 2.3 K/mm3 (1.3-6.7); Platelet Count Result 262 k/mm3 (150-375)
[2024-02-15 05:49] LABS: Alanine Aminotransferase 306 U/L (6-35); Albumin Level 3.2 g/dL (3.5-5.1); Alkaline Phosphatase 412 U/L (38-126); Anion Gap 2 mmol/L (4-12); Aspartate Amino Transferase 174 U/L (14-36); Bilirubin,Total 0.4 mg/dL (0.2-1.3); Blood Urea Nitrogen 16 mg/dL (7-17); Calcium 7.9 mg/dL (8.4-10.2); Carbon Dioxide 25 mmol/L (22-30); Chloride 109 mmol/L (98-107); Estimated CRCL calculation 53 ml/min; Estimated Glomerular Filt Rate 48; Glucose 96 mg/dL (65-110); Potassium 3.9 mmol/L (3.4-5.0); Sodium 136 mmol/L (137-145)
[2024-02-15 05:58] LABS: Hypochromasia 1+; Ovalocytes 1+; Platelet Estimate Adequate (Adequate); Schistocytes None Seen
[2024-02-15 06:00] VITALS: BP 139/70; PULSE 65; RESP 20; TEMP 36.8; O2SAT 97
[2024-02-15 06:00] LABS: Glucose Point of Care 97 mg/dl (65-105)
[2024-02-15 07:45] LABS: Magnesium 1.9 mg/dL (1.6-2.3)
[2024-02-15] MEDS: amLODIPine BESYLATE 5 MG TABLET PO (08:12)
[2024-02-15] MEDS: FOLIC ACID 1 MG TABLET PO (08:12)
[2024-02-15] MEDS: PANTOPRAZOLE 40 MG TABLET PO (08:12)
[2024-02-15] MEDS: FUROSEMIDE 40 MG TABLET PO (08:12)
[2024-02-15] MEDS: FERROUS SULFATE 325 MG TABLET DR BY MOUTH (08:12)
[2024-02-15] MEDS: SODIUM CHLORIDE 0.9% IV 1,000 ML 100 ML IV CONT ×2 (09:08→22:10)
--- NOTE | 2024-02-15 09:59 | P.PNIM_ITS ---
Progress Note: A&P Assessment and Plan (1) Periumbilical hernia: Code(s): K42.9 - Umbilical hernia without obstruction or gangrene Status: Acute Assessment and Plan: History of a small-bowel obstruction in September of 2023 she reportedly had an exploratory laparotomy with small-bowel resection and ventral hernia repair with mesh. She states that the hernia they repaired was in the right upper quadrant and had not noticed a periumbilical bulge until a few days ago. Patient has a reducible umbilical hernia given edema patient may have some component of incarceration. - Abdomen/pelvis CT 09/30/23: An area of thickened bowel in the pelvis may indicate ischemia versus inflammatory changes or Crohn's disease. - Abdomen/pelvis CT: Moderate periumbilical hernia containing a loop of unobstructed small bowel, with surrounding edema/inflammatory change. - Diet: Heart healthy - Analgesics - IV hydration NS@ 100ml/hr. - Abdominal binder - Surgery consult, appreciate recommendations Okay to DC from surgical perspective with plan for outpatient surgery likely on Tuesday, 02/16. Keep patient due to elevated liver enzymes and pain. (2) Ovarian cyst: Code(s): N83.209 - Unspecified ovarian cyst, unspecified side Status: Acute Assessment and Plan: - Abdomen/pelvis CT: 3.5 cm simple appearing left ovarian cyst. Recommend nonemergent but timely follow-up pelvic ultrasound for further characterization. - Pelvic US: Bilateral septated cysts with internal echoes suggestive of hemorrhagic cysts. Follow-up advised. Status post hysterectomy. Otherwise, normal pelvic ultrasound. - Follow up outpatient (3) Anemia: Code(s): D64.9 - Anemia, unspecified Status: Acute Assessment and Plan: Patient reports intermittent bloody stools. Prior CT scan in September when patient had bowel obstruction suggested possible min of inflammatory bowel disease or Crohn's disease. Patient's CT today does not mention this. Patient's dark stools could be due to her iron supplementation. Some of her diarrhea could also be due to withdrawal from recent meth use. - H/H 9.6/31.7 on am labs - fecal occult ordered. - continue iron supplementation - continue patient's home Protonix. - she could benefit from outpatient evaluation with colonoscopy. Consider GI consult pending fecal occult. (4) Diarrhea: Qualifiers: Diarrhea type: unspecified type Qualified Code(s): R19.7 - Diarrhea, unspecified Code(s): R19.7 - Diarrhea, unspecified Status: Acute Assessment and Plan: Patient reports intermittent bloody stools. Prior CT scan in September when patient had bowel obstruction suggested possible min of inflammatory bowel disease or Crohn's disease. Patient's CT today does not mention this. Patient's dark stools could be due to her iron supplementation. Some of her diarrhea could also be due to withdrawal from recent meth use. - fecal occult ordered. - continue patient's home Protonix. - she could benefit from outpatient evaluation with colonoscopy. Consider GI consult pending fecal occult. - monitor vital signs, I&Os, track stool output, watch for bloody stools, neuro status and patient is a fall risk - monitor serum electrolytes and CBC (5) Transaminitis: Code(s): R74.01 - Elevation of levels of liver transaminase levels Status: Acute Assessment and Plan: LFTs on admission: tot bili WNL, AST 386, ALT 188, alk phos 177 - LFTs elevated on am labs. AST 174, ALT 306, alk phos 412 - Liver normal on abdomen/pelvis CT. Patient s/p cholecystectomy. - Hepatitis panel negative - Possibly meth induced, encouraged cessation - Monitor (6) Methamphetamine addiction: Code(s): F15.20 - Other stimulant dependence, uncomplicated Status: Acute Assessment and Plan: Last used a week ago. UDS +. Patient is interested in cessation. - Care coordination consulted for resources (7) Lymphedema of left lower extremity: Code(s): I89.0 - Lymphedema, not elsewhere classified Status: Acute Assessment and Plan: Patient has chronic lymphedema with chronic venous stasis changes. - maleate cream for lower extremities - venous dopplers ordered - Patient reports that she uses lymphatic bandages at home. (8) Hypertension: Qualifiers: Hypertension type: unspecified Qualified Code(s): I10 - Essential (primary) hypertension Code(s): I10 - Essential (primary) hypertension Status: Inactive Assessment and Plan: Chronic, currently holding home medications as patients BP has been stable despite being off of them. - patient hypertensive, will resume home medications - amlodipine 5 mg daily and lasix 40 mg daily - Blood pressure 120/43. - monitor Subjective Date/time seen: 02/15/24 09:59 Interval history: Patient reports pain in abdomen is a 4 , constant, and describes as just pain. Patient denies nausea, vomiting, headache, or dizziness. Review of Systems Review of Systems: All systems reviewed & are unremarkable except as noted in HPI and below Exam Const: General: no acute distress and uncomfortable Resp: Effort & Inspection: normal respiratory effort Auscultation: clear to auscultation bilaterally Cardio: Rate: regular rate Rhythm: regular rhythm GI: GI Palp: Yes Soft to palpation and Yes Tenderness to palpation present (GI) (center mid to lower) Auscultation: normal bowel sounds Neuro: Speech: normal speech Extrem: General: normal to inspection Psych: Mental Status: mental status grossly normal Affect: normal affect Objective Data Vital Signs Vital Signs: Vital Signs - 24 hr 02/14/24 13:52 02/14/24 20:00 02/14/24 20:56 Temperature 97.5 F L 99.1 F Pulse Rate 71 75 Respiratory Rate 16 20 Blood Pressure 118/69 112/57 L Pulse Oximetry 98 100 Oxygen Delivery Room Air 02/15/24 06:00 Temperature 98.3 F Pulse Rate 65 Respiratory Rate 20 Blood Pressure 139/70 Pulse Oximetry 97 Oxygen Delivery Intake/Output Intake/Output: Intake & Output 02/12/24 02/13/24 02/14/24 02/15/24 23:59 23:59 23:59 23:59 Intake Total 2200.0 2636.7 1705 Balance 2200.0 2636.7 1705 Meds/Results Medications: Active Medications Generic Name Dose Route Start Last Admin Trade Name Freq PRN Reason Stop Dose Admin Acetaminophen 650 mg 02/14/24 13:53 Acetaminophen 325 Mg Tablet PO Q6H PRN Mild Pain (1-3) or Fever Amlodipine Besylate 5 mg 02/14/24 09:00 02/15/24 08:12 Amlodipine Besylate 5 Mg Tablet PO 5 mg DAILY YESENIA Administration Dextrose 12.5 gm 02/13/24 01:22 Dextrose 50% 25 Gm/50 Ml Syringe IV PUSH PRN PRN Hypoglycemia Protocol Ferrous Sulfate 325 mg 02/13/24 09:00 02/15/24 08:12 Ferrous Sulfate [address] BY MOUTH 325 mg DAILY YESENIA Administration Folic Acid 1 mg 02/13/24 09:00 02/15/24 08:12 Folic Acid 1 Mg Tablet PO 1 mg DAILY YESENIA Administration Furosemide 40 mg 02/14/24 09:00 02/15/24 08:12 Furosemide 40 Mg Tablet PO 40 mg DAILY YESENIA Administration Glucagon 1 mg 02/13/24 01:22 Glucagon For Inj 1 Mg Vial IM PRN PRN Hypoglycemia Protocol Glucose 15 gm 02/13/24 01:22 Glucose Oral Gel 15 Gm Of Glucse In 37.5 Gm Tube PO PRN PRN Hypoglycemia Protocol Sodium Chloride 1,000 mls @ 100 mls/hr 02/13/24 01:20 02/15/24 09:08 Normal Saline Iv IV CONT 100 mls/hr .Q10H YESENIA Administration Dextrose 1,000 mls @ 100 mls/hr 02/13/24 01:22 Dextrose 5% 1,000 Ml IVPB PRN PRN Hypoglycemia Protocol Morphine Sulfate 4 mg 02/13/24 01:17 02/15/24 05:43 Morphine Sulfate (*Crx) 4 Mg/Ml Inj IV PUSH 4 mg Q4H PRN Administration Pain Rated 7-10 Ondansetron HCl 4 mg 02/13/24 01:17 Ondansetron Inj 4 Mg/2 Ml Vial IV PUSH Q6H PRN Nausea And Vomiting Pantoprazole Sodium 40 mg 02/13/24 09:00 02/15/24 08:12 Pantoprazole 40 Mg Tablet PO 40 mg DAILY YESENIA Administration Radiology Results: ITS Impressions Transvaginal US 02/13/24 15:11 IMPRESSION: Bilateral septated cysts with internal echoes suggestive of hemorrhagic cysts. Follow-up advised. Status post hysterectomy. Otherwise, normal pelvic ultrasound. Venous Doppler Study 02/14/24 14:47 IMPRESSION: 1. No deep venous thrombosis in the left lower limb. 2. Small left Arreaga's cyst. Labs Labs: Laboratory Results - last 24 hr 02/14/24 02/14/24 02/14/24 12:01 17:52 23:25 WBC RBC Hgb Hct MCV MCH MCHC RDW Plt Count MPV Immature Gran % (Auto) Neut % (Auto) Lymph % (Auto) [place] % (Auto) Eos % (Auto) Baso % (Auto) Lymph # (Auto) [place] # (Auto) Eos # (Auto) Baso # (Auto) Abs Immat Gran (auto) Absolute Neuts (auto) Absolute Nucleated RBC Nucleated RBC % Platelet Estimate Hypochromasia Ovalocytes Schistocytes Sodium Potassium Chloride Carbon Dioxide Anion Gap BUN Creatinine Estim Creat Clear Calc Estimated GFR Glucose POC Capillary Glucose 83 119 H 123 H Calcium Magnesium Total Bilirubin AST ALT Alkaline Phosphatase Total Protein Albumin 02/15/24 02/15/24 04:50 05:51 WBC 5.0 RBC 3.80 L Hgb 9.7 L Hct 32.4 L MCV 85.3 MCH 25.5 L MCHC 29.9 L RDW 15.0 H Plt Count 262 MPV 11.4 H Immature Gran % (Auto) 0.4 Neut % (Auto) 46.0 Lymph % (Auto) 39.0 Trinity % (Auto) 9.2 H Eos % (Auto) 4.0 Baso % (Auto) 1.4 H Lymph # (Auto) 1.96 Trinity # (Auto) 0.5 Eos # (Auto) 0.2 Baso # (Auto) 0.1 Abs Immat Gran (auto) 0.02 Absolute Neuts (auto) 2.3 Absolute Nucleated RBC 0.000 Nucleated RBC % 0.0 Platelet Estimate Adequate Hypochromasia 1+ Ovalocytes 1+ Schistocytes None seen Sodium 136 L Potassium 3.9 Chloride 109 H Carbon Dioxide 25 Anion Gap 2 L BUN 16 Creatinine 1.20 H Estim Creat Clear Calc 53 Estimated GFR 48 L Glucose 96 POC Capillary Glucose 97 Calcium 7.9 L Magnesium 1.9 Total Bilirubin 0.4 AST 174 H ALT 306 H Alkaline Phosphatase 412 H Total Protein 6.0 L Albumin 3.2 L Quality VTE Prophylaxis VTE prophylaxis: mechanical ordered
[2024-02-15 12:53] LABS: Glucose Point of Care 108 mg/dl (65-105)
[2024-02-15] MEDS: MORPHINE SULFATE (*CRX) 15 MG TAB IR PO ×2 (13:23→20:02)
[2024-02-15] MEDS: ENOXAPARIN 40 MG/0.4 ML SYRINGE SUB-Q (13:23)
[2024-02-15 13:52] VITALS: BP 120/43; PULSE 71; RESP 14; TEMP 36.3; O2SAT 98
--- NOTE | 2024-02-15 16:40 | P.PNGS_ITS ---
Progress Note: A&P Assessment and Plan (1) Recurrent incisional hernia with incarceration: Code(s): K43.0 - Incisional hernia with obstruction, without gangrene Status: Acute Assessment and Plan: Repair with mesh posterior component separation scheduled for tuesday. (2) Anemia: Code(s): D64.9 - Anemia, unspecified Status: Chronic Subjective Subjective Date/Time Seen: 02/15/24 16:40 Patient reports: no new complaints, tolerating a regular diet, bowel movement and afebrile Review of Systems Review of Systems: All systems reviewed & are unremarkable except as noted in HPI and below (HPI) Exam Const: General: cooperative, comfortable, alert and awake GI: Inspection: non-distended, scar and visible herniation GI Palp: Yes Hernia present (Both hernias remain reducible) Objective Data Vital Signs Vital Signs: Vital Signs - 24 hr 02/14/24 20:00 02/14/24 20:56 02/15/24 06:00 Temperature 37.3 C 36.8 C Pulse Rate 75 65 Respiratory Rate 20 20 Blood Pressure 112/57 L 139/70 Pulse Oximetry 100 97 Oxygen Delivery Room Air 02/15/24 08:00 02/15/24 13:52 Temperature 36.3 C L Pulse Rate 71 Respiratory Rate 14 Blood Pressure 120/43 L Pulse Oximetry 98 Oxygen Delivery Room Air Intake/Output Intake/Output: Intake & Output 02/12/24 02/13/24 02/14/24 02/15/24 23:59 23:59 23:59 23:59 Intake Total 2200.0 2636.7 1705 Balance 2200.0 2636.7 1705 Meds/Results Medications: Active Medications Generic Name Dose Route Start Last Admin Trade Name Freq PRN Reason Stop Dose Admin Acetaminophen 650 mg 02/14/24 13:53 Acetaminophen 325 Mg Tablet PO Q6H PRN Mild Pain (1-3) or Fever Amlodipine Besylate 5 mg 02/14/24 09:00 02/15/24 08:12 Amlodipine Besylate 5 Mg Tablet PO 5 mg DAILY YESENIA Administration Dextrose 12.5 gm 02/13/24 01:22 Dextrose 50% 25 Gm/50 Ml Syringe IV PUSH PRN PRN Hypoglycemia Protocol Enoxaparin Sodium 40 mg 02/16/24 09:00 Enoxaparin 40 Mg/0.4 Ml Syringe SUB-Q DAILY YESENIA Ferrous Sulfate 325 mg 02/13/24 09:00 02/15/24 08:12 Ferrous Sulfate [address] BY MOUTH 325 mg DAILY YESENIA Administration Folic Acid 1 mg 02/13/24 09:00 02/15/24 08:12 Folic Acid 1 Mg Tablet PO 1 mg DAILY YESENIA Administration Furosemide 40 mg 02/14/24 09:00 02/15/24 08:12 Furosemide 40 Mg Tablet PO 40 mg DAILY YESENIA Administration Glucagon 1 mg 02/13/24 01:22 Glucagon For Inj 1 Mg Vial IM PRN PRN Hypoglycemia Protocol Glucose 15 gm 02/13/24 01:22 Glucose Oral Gel 15 Gm Of Glucse In 37.5 Gm Tube PO PRN PRN Hypoglycemia Protocol Sodium Chloride 1,000 mls @ 100 mls/hr 02/13/24 01:20 02/15/24 09:08 Normal Saline Iv IV CONT 100 mls/hr .Q10H YESENIA Administration Dextrose 1,000 mls @ 100 mls/hr 02/13/24 01:22 Dextrose 5% 1,000 Ml IVPB PRN PRN Hypoglycemia Protocol Morphine Sulfate 15 mg 02/15/24 10:11 02/15/24 13:23 Morphine Sulfate (*Crx) 15 Mg Tab Ir PO 15 mg Q6H PRN Administration Pain Rated 4-6 Morphine Sulfate 2 mg 02/15/24 10:13 Morphine Sulfate (*Crx) 4 Mg/Ml Inj IV PUSH Q4H PRN Pain Rated 7-10 Ondansetron HCl 4 mg 02/13/24 01:17 Ondansetron Inj 4 Mg/2 Ml Vial IV PUSH Q6H PRN Nausea And Vomiting Pantoprazole Sodium 40 mg 02/13/24 09:00 02/15/24 08:12 Pantoprazole 40 Mg Tablet PO 40 mg DAILY YESENIA Administration Radiology Results: ITS Impressions Transvaginal US 02/13/24 15:11 IMPRESSION: Bilateral septated cysts with internal echoes suggestive of hemorrhagic cysts. Follow-up advised. Status post hysterectomy. Otherwise, normal pelvic ultrasound. Venous Doppler Study 02/14/24 14:47 IMPRESSION: 1. No deep venous thrombosis in the left lower limb. 2. Small left Arreaga's cyst. Labs Labs: Laboratory Results - last 24 hr 02/14/24 02/14/24 02/15/24 17:52 23:25 04:50 WBC 5.0 RBC 3.80 L Hgb 9.7 L Hct 32.4 L MCV 85.3 MCH 25.5 L MCHC 29.9 L RDW 15.0 H Plt Count 262 MPV 11.4 H Immature Gran % (Auto) 0.4 Neut % (Auto) 46.0 Lymph % (Auto) 39.0 Caroline % (Auto) 9.2 H Eos % (Auto) 4.0 Baso % (Auto) 1.4 H Lymph # (Auto) 1.96 Caroline # (Auto) 0.5 Eos # (Auto) 0.2 Baso # (Auto) 0.1 Abs Immat Gran (auto) 0.02 Absolute Neuts (auto) 2.3 Absolute Nucleated RBC 0.000 Nucleated RBC % 0.0 Platelet Estimate Adequate Hypochromasia 1+ Ovalocytes 1+ Schistocytes None seen Sodium 136 L Potassium 3.9 Chloride 109 H Carbon Dioxide 25 Anion Gap 2 L BUN 16 Creatinine 1.20 H Estim Creat Clear Calc 53 Estimated GFR 48 L Glucose 96 POC Capillary Glucose 119 H 123 H Calcium 7.9 L Magnesium 1.9 Total Bilirubin 0.4 AST 174 H ALT 306 H Alkaline Phosphatase 412 H Total Protein 6.0 L Albumin 3.2 L 02/15/24 02/15/24 05:51 12:49 WBC RBC Hgb Hct MCV MCH MCHC RDW Plt Count MPV Immature Gran % (Auto) Neut % (Auto) Lymph % (Auto) [place] % (Auto) Eos % (Auto) Baso % (Auto) Lymph # (Auto) Caroline # (Auto) Eos # (Auto) Baso # (Auto) Abs Immat Gran (auto) Absolute Neuts (auto) Absolute Nucleated RBC Nucleated RBC % Platelet Estimate Hypochromasia Ovalocytes Schistocytes Sodium Potassium Chloride Carbon Dioxide Anion Gap BUN Creatinine Estim Creat Clear Calc Estimated GFR Glucose POC Capillary Glucose 97 108 H Calcium Magnesium Total Bilirubin AST ALT Alkaline Phosphatase Total Protein Albumin
[2024-02-15] MEDS: MORPHINE SULFATE (*CRX) 4 MG/ML INJ 2 MG IV PUSH ×2 (16:53→23:15)
[2024-02-15 18:43] LABS: Glucose Point of Care 108 mg/dl (65-105)
[2024-02-15 22:00] VITALS: BP 113/67; PULSE 64; RESP 18; TEMP 36.8; O2SAT 98
[2024-02-16 00:14] LABS: Glucose Point of Care 95 mg/dl (65-105)
[2024-02-16 06:00] VITALS: BP 131/73; PULSE 60; RESP 18; TEMP 36.8; O2SAT 97
[2024-02-16] MEDS: MORPHINE SULFATE (*CRX) 15 MG TAB IR PO ×2 (06:06→21:50)
[2024-02-16 06:20] LABS: Basophils Absolute Auto 0.1 K/mm3 (0.0-0.1); Basophils Percent Auto 1.2 % (0.2-1.2); Eosinophils Absolute Auto 0.2 K/mm3 (0-0.3); Eosinophils Percent Auto 3.4 % (0-4.4); Hematocrit 32.5 % (37.0-47.0); Hemoglobin 9.9 g/dL (12.0-15.0); Immature Granulocyte Absolute 0.01 K/mm3 (0.00-0.031); Immature Granulocyte Percent A 0.2 % (0-0.5); Lymphocytes Absolute Auto 2.04 K/mm3 (0.9-3.2); Lymphocytes Percent Auto 41.1 % (18.3-44.2); Mean Corpuscular HGB Conc 30.5 g/dl (32-36); Mean Corpuscular Hemoglobin 26.2 pg (26-34); Mean Platelet Volume 11.5 fl (7.4-10.4); Monocytes Absolute Auto 0.5 K/mm3 (0.1-0.6); Monocytes Percent Auto 10.7 % (2.6-8.5); Neutrophils Absolute Auto 2.2 K/mm3 (1.3-6.7); Neutrophils Percent Auto 43.4 % (45.5-73.1); Platelet Count Result 250 k/mm3 (150-375); Red Blood Count 3.78 M/mm3 (4.2-5.4); Red Cell Distribution Width 15.1 % (11.5-14.5)
[2024-02-16 06:52] LABS: Alanine Aminotransferase 404 U/L (6-35); Albumin Level 3.2 g/dL (3.5-5.1); Alkaline Phosphatase 555 U/L (38-126); Anion Gap 2 mmol/L (4-12); Aspartate Amino Transferase 417 U/L (14-36); Bilirubin,Total 0.7 mg/dL (0.2-1.3); Blood Urea Nitrogen 14 mg/dL (7-17); Carbon Dioxide 25 mmol/L (22-30); Chloride 108 mmol/L (98-107); Estimated CRCL calculation 57 ml/min; Estimated Glomerular Filt Rate 53; Glucose 90 mg/dL (65-110); Potassium 3.9 mmol/L (3.4-5.0); Sodium 135 mmol/L (137-145)
[2024-02-16 08:05] LABS: Glucose Point of Care 82 mg/dl (65-105)
[2024-02-16] MEDS: amLODIPine BESYLATE 5 MG TABLET PO (08:17)
[2024-02-16] MEDS: FOLIC ACID 1 MG TABLET PO (08:18)
[2024-02-16] MEDS: PANTOPRAZOLE 40 MG TABLET PO (08:18)
[2024-02-16] MEDS: ENOXAPARIN 40 MG/0.4 ML SYRINGE SUB-Q (08:18)
[2024-02-16] MEDS: FERROUS SULFATE 325 MG TABLET DR BY MOUTH (08:18)
[2024-02-16] MEDS: FUROSEMIDE 40 MG TABLET PO (08:18)
[2024-02-16] MEDS: ONDANSETRON INJ 4 MG/2 ML VIAL IV PUSH (08:24)
[2024-02-16] MEDS: SODIUM CHLORIDE 0.9% IV 1,000 ML 100 ML IV CONT ×2 (09:25→20:05)
--- NOTE | 2024-02-16 10:27 | PM.IMPN ---
Progress Note: A&P Assessment and Plan (1) Periumbilical hernia: Code(s): K42.9 - Umbilical hernia without obstruction or gangrene Status: Acute Assessment and Plan: History of a small-bowel obstruction in September of 2023 she reportedly had an exploratory laparotomy with small-bowel resection and ventral hernia repair with mesh. She states that the hernia they repaired was in the right upper quadrant and had not noticed a periumbilical bulge until a few days ago. Patient has a reducible umbilical hernia given edema patient may have some component of incarceration. - Abdomen/pelvis CT 09/30/23: An area of thickened bowel in the pelvis may indicate ischemia versus inflammatory changes or Crohn's disease. - Abdomen/pelvis CT: Moderate periumbilical hernia containing a loop of unobstructed small bowel, with surrounding edema/inflammatory change. - Diet: Heart healthy - Analgesics - IV hydration NS@ 100ml/hr. - Abdominal binder - Surgery consult, appreciate recommendations Okay to DC from surgical perspective with plan for outpatient surgery likely on Tuesday, 02/16. Keep patient due to elevated liver enzymes and pain. (2) Ovarian cyst: Code(s): N83.209 - Unspecified ovarian cyst, unspecified side Status: Acute Assessment and Plan: - Abdomen/pelvis CT: 3.5 cm simple appearing left ovarian cyst. Recommend nonemergent but timely follow-up pelvic ultrasound for further characterization. - Pelvic US: Bilateral septated cysts with internal echoes suggestive of hemorrhagic cysts. Follow-up advised. Status post hysterectomy. Otherwise, normal pelvic ultrasound. - Follow up outpatient (3) Anemia: Code(s): D64.9 - Anemia, unspecified Status: Chronic Assessment and Plan: Patient reports intermittent bloody stools. Prior CT scan in September when patient had bowel obstruction suggested possible min of inflammatory bowel disease or Crohn's disease. Patient's CT today does not mention this. Patient's dark stools could be due to her iron supplementation. Some of her diarrhea could also be due to withdrawal from recent meth use. - H/H 9.9/32.5 on am labs - fecal occult ordered. - continue iron supplementation - continue patient's home Protonix. - she could benefit from outpatient evaluation with colonoscopy. Consider GI consult pending fecal occult. (4) Diarrhea: Qualifiers: Diarrhea type: unspecified type Qualified Code(s): R19.7 - Diarrhea, unspecified Code(s): R19.7 - Diarrhea, unspecified Status: Acute Assessment and Plan: Patient reports intermittent bloody stools. Prior CT scan in September when patient had bowel obstruction suggested possible min of inflammatory bowel disease or Crohn's disease. Patient's CT today does not mention this. Patient's dark stools could be due to her iron supplementation. Some of her diarrhea could also be due to withdrawal from recent meth use. - fecal occult ordered. - continue patient's home Protonix. - she could benefit from outpatient evaluation with colonoscopy. Consider GI consult pending fecal occult. - monitor vital signs, I&Os, track stool output, watch for bloody stools, neuro status and patient is a fall risk - monitor serum electrolytes and CBC (5) Transaminitis: Code(s): R74.01 - Elevation of levels of liver transaminase levels Status: Acute Assessment and Plan: LFTs on admission: tot bili WNL, AST 386, ALT 188, alk phos 177 - LFT's this AM: AST 417, ALT 404, alk phos 555. - Liver normal on abdomen/pelvis CT. Patient s/p cholecystectomy. - Hepatitis panel negative - Possibly meth induced, encouraged cessation - Monitor (6) Methamphetamine addiction: Code(s): F15.20 - Other stimulant dependence, uncomplicated Status: Acute Assessment and Plan: Last used a week ago. UDS +. Patient is interested in cessation. - Care coordination consulted for resources (7) Lymphedema of left lower extremity: Code(s): I89.0 - Lymphedema, not elsewhere classified Status: Acute Assessment and Plan: Patient has chronic lymphedema with chronic venous stasis changes. - maleate cream for lower extremities - venous dopplers ordered - Patient reports that she uses lymphatic bandages at home. (8) Hypertension: Qualifiers: Hypertension type: unspecified Qualified Code(s): I10 - Essential (primary) hypertension Code(s): I10 - Essential (primary) hypertension Status: Inactive Assessment and Plan: Chronic, currently holding home medications as patients BP has been stable despite being off of them. - patient hypertensive, will resume home medications - amlodipine 5 mg daily and lasix 40 mg daily - Blood pressure 131/73. - monitor Subjective Date/time seen: 02/16/24 10:27 Interval history: Patient reports pain in abdomen is a 5 , constant, and describes as just pain. Patient denies nausea, vomiting, headache, or dizziness. Review of Systems Review of Systems: All systems reviewed & are unremarkable except as noted in HPI and below Exam Const: General: uncomfortable Resp: Effort & Inspection: normal respiratory effort Auscultation: clear to auscultation bilaterally Cardio: Rate: regular rate Rhythm: regular rhythm GI: GI Palp: Yes Soft to palpation and Yes Tenderness to palpation present (GI) (center mid to lower) Auscultation: normal bowel sounds Skin: Other: Dry skin Neuro: Speech: normal speech Extrem: Other: 2+ LLE edema with scab to holloway. Psych: Mental Status: mental status grossly normal Affect: normal affect Objective Data Vital Signs Vital Signs: Vital Signs - 24 hr 02/15/24 13:52 02/15/24 20:00 02/15/24 22:00 Temperature 97.3 F L 98.2 F Pulse Rate 71 64 Respiratory Rate 14 18 Blood Pressure 120/43 L 113/67 Pulse Oximetry 98 98 Oxygen Delivery Room Air 02/16/24 06:00 Temperature 98.3 F Pulse Rate 60 Respiratory Rate 18 Blood Pressure 131/73 Pulse Oximetry 97 Oxygen Delivery Intake/Output Intake/Output: Intake & Output 02/13/24 02/14/24 02/15/24 02/16/24 23:59 23:59 23:59 23:59 Intake Total 2200.0 2636.7 3585 1000 Balance 2200.0 2636.7 3585 1000 Meds/Results Medications: Active Medications Generic Name Dose Route Start Last Admin Trade Name Freq PRN Reason Stop Dose Admin Acetaminophen 650 mg 02/14/24 13:53 Acetaminophen 325 Mg Tablet PO Q6H PRN Mild Pain (1-3) or Fever Amlodipine Besylate 5 mg 02/14/24 09:00 02/16/24 08:17 Amlodipine Besylate 5 Mg Tablet PO 5 mg DAILY YESENIA Administration Dextrose 12.5 gm 02/13/24 01:22 Dextrose 50% 25 Gm/50 Ml Syringe IV PUSH PRN PRN Hypoglycemia Protocol Enoxaparin Sodium 40 mg 02/16/24 09:00 02/16/24 08:18 Enoxaparin 40 Mg/0.4 Ml Syringe SUB-Q 40 mg DAILY YESENIA Administration Ferrous Sulfate 325 mg 02/13/24 09:00 02/16/24 08:18 Ferrous Sulfate [address] BY MOUTH 325 mg DAILY YESENIA Administration Folic Acid 1 mg 02/13/24 09:00 02/16/24 08:18 Folic Acid 1 Mg Tablet PO 1 mg DAILY YESENIA Administration Furosemide 40 mg 02/14/24 09:00 02/16/24 08:18 Furosemide 40 Mg Tablet PO 40 mg DAILY YESENIA Administration Glucagon 1 mg 02/13/24 01:22 Glucagon For Inj 1 Mg Vial IM PRN PRN Hypoglycemia Protocol Glucose 15 gm 02/13/24 01:22 Glucose Oral Gel 15 Gm Of Glucse In 37.5 Gm Tube PO PRN PRN Hypoglycemia Protocol Sodium Chloride 1,000 mls @ 100 mls/hr 02/13/24 01:20 02/16/24 09:25 Normal Saline Iv IV CONT 100 mls/hr .Q10H YESENIA Administration Dextrose 1,000 mls @ 100 mls/hr 02/13/24 01:22 Dextrose 5% 1,000 Ml IVPB PRN PRN Hypoglycemia Protocol Morphine Sulfate 15 mg 02/15/24 10:11 02/16/24 06:06 Morphine Sulfate (*Crx) 15 Mg Tab Ir PO 15 mg Q6H PRN Administration Pain Rated 4-6 Morphine Sulfate 2 mg 02/15/24 10:13 02/15/24 23:15 Morphine Sulfate (*Crx) 4 Mg/Ml Inj IV PUSH 2 mg Q4H PRN Administration Pain Rated 7-10 Ondansetron HCl 4 mg 02/13/24 01:17 02/16/24 08:24 Ondansetron Inj 4 Mg/2 Ml Vial IV PUSH 4 mg Q6H PRN Administration Nausea And Vomiting Pantoprazole Sodium 40 mg 02/13/24 09:00 02/16/24 08:18 Pantoprazole 40 Mg Tablet PO 40 mg DAILY YESENIA Administration Radiology Results: ITS Impressions Transvaginal US 02/13/24 15:11 IMPRESSION: Bilateral septated cysts with internal echoes suggestive of hemorrhagic cysts. Follow-up advised. Status post hysterectomy. Otherwise, normal pelvic ultrasound. Venous Doppler Study 02/14/24 14:47 IMPRESSION: 1. No deep venous thrombosis in the left lower limb. 2. Small left Arreaga's cyst. Labs Labs: Laboratory Results - last 24 hr 02/15/24 02/15/24 02/16/24 12:49 18:40 00:11 WBC RBC Hgb Hct MCV MCH MCHC RDW Plt Count MPV Immature Gran % (Auto) Neut % (Auto) Lymph % (Auto) [place] % (Auto) Eos % (Auto) Baso % (Auto) Lymph # (Auto) [place] # (Auto) Eos # (Auto) Baso # (Auto) Abs Immat Gran (auto) Absolute Neuts (auto) Absolute Nucleated RBC Nucleated RBC % Sodium Potassium Chloride Carbon Dioxide Anion Gap BUN Creatinine Estim Creat Clear Calc Estimated GFR Glucose POC Capillary Glucose 108 H 108 H 95 Calcium Total Bilirubin AST ALT Alkaline Phosphatase Total Protein Albumin 02/16/24 02/16/24 05:31 07:56 WBC 5.0 RBC 3.78 L Hgb 9.9 L Hct 32.5 L MCV 86.0 MCH 26.2 MCHC 30.5 L RDW 15.1 H Plt Count 250 MPV 11.5 H Immature Gran % (Auto) 0.2 Neut % (Auto) 43.4 L Lymph % (Auto) 41.1 [place] % (Auto) 10.7 H Eos % (Auto) 3.4 Baso % (Auto) 1.2 Lymph # (Auto) 2.04 [place] # (Auto) 0.5 Eos # (Auto) 0.2 Baso # (Auto) 0.1 Abs Immat Gran (auto) 0.01 Absolute Neuts (auto) 2.2 Absolute Nucleated RBC 0.000 Nucleated RBC % 0.0 Sodium 135 L Potassium 3.9 Chloride 108 H Carbon Dioxide 25 Anion Gap 2 L BUN 14 Creatinine 1.10 H Estim Creat Clear Calc 57 Estimated GFR 53 L Glucose 90 POC Capillary Glucose 82 Calcium 8.0 L Total Bilirubin 0.7 AST 417 H ALT 404 H Alkaline Phosphatase 555 H Total Protein 7.0 Albumin 3.2 L Quality VTE Prophylaxis VTE prophylaxis: mechanical ordered
[2024-02-16 11:54] LABS: Glucose Point of Care 71 mg/dl (65-105)
[2024-02-16 14:00] VITALS: BP 110/58; PULSE 65; RESP 14; TEMP 36.6; O2SAT 99
--- NOTE | 2024-02-16 14:12 | PM.PNGS ---
Progress Note: A&P Assessment and Plan (1) Recurrent incisional hernia with incarceration: Code(s): K43.0 - Incisional hernia with obstruction, without gangrene Status: Acute Assessment and Plan: Repair with mesh and posterior component separation scheduled for tomorrow by Dr. Quigley. Will make NPO after midnight. Surgery was discussed with patient by Dr. Quigley. No additional questions today. (2) Anemia: Code(s): D64.9 - Anemia, unspecified Status: Chronic Plan I have discussed the patient's case and plan of care with Dr. Quigley. Subjective Subjective Date/Time Seen: 02/16/24 14:12 Patient reports: no new complaints, still having pain (unchanged from the past few days), tolerating a regular diet and flatus Interval history: No changes overnight. Exam Const: General: comfortable and no acute distress GI: Inspection: non-distended GI Palp: Yes Soft to palpation, Yes Tenderness to palpation present (GI) (near periumbilical hernia, which remains reducible), No Guarding due to palpation present (GI) and Yes Hernia present (Both hernias remain reducible) Auscultation: normal bowel sounds Objective Data Vital Signs Vital Signs: Vital Signs - 24 hr 02/15/24 20:00 02/15/24 22:00 02/16/24 06:00 Temperature 98.2 F 98.3 F Pulse Rate 64 60 Respiratory Rate 18 18 Blood Pressure 113/67 131/73 Pulse Oximetry 98 97 Oxygen Delivery Room Air 02/16/24 08:20 Temperature Pulse Rate Respiratory Rate Blood Pressure Pulse Oximetry Oxygen Delivery Room Air Intake/Output Intake/Output: Intake & Output 02/13/24 02/14/24 02/15/24 02/16/24 23:59 23:59 23:59 23:59 Intake Total 2200.0 2636.7 3585 1240 Balance 2200.0 2636.7 3585 1240 Meds/Results Medications: Active Medications Generic Name Dose Route Start Last Admin Trade Name Freq PRN Reason Stop Dose Admin Acetaminophen 650 mg 02/14/24 13:53 Acetaminophen 325 Mg Tablet PO Q6H PRN Mild Pain (1-3) or Fever Amlodipine Besylate 5 mg 02/14/24 09:00 02/16/24 08:17 Amlodipine Besylate 5 Mg Tablet PO 5 mg DAILY YESENIA Administration Dextrose 12.5 gm 02/13/24 01:22 Dextrose 50% 25 Gm/50 Ml Syringe IV PUSH PRN PRN Hypoglycemia Protocol Enoxaparin Sodium 40 mg 02/16/24 09:00 02/16/24 08:18 Enoxaparin 40 Mg/0.4 Ml Syringe SUB-Q 40 mg DAILY YESENIA Administration Ferrous Sulfate 325 mg 02/13/24 09:00 02/16/24 08:18 Ferrous Sulfate [address] BY MOUTH 325 mg DAILY YESENIA Administration Folic Acid 1 mg 02/13/24 09:00 02/16/24 08:18 Folic Acid 1 Mg Tablet PO 1 mg DAILY YESENIA Administration Furosemide 40 mg 02/14/24 09:00 02/16/24 08:18 Furosemide 40 Mg Tablet PO 40 mg DAILY YESENIA Administration Glucagon 1 mg 02/13/24 01:22 Glucagon For Inj 1 Mg Vial IM PRN PRN Hypoglycemia Protocol Glucose 15 gm 02/13/24 01:22 Glucose Oral Gel 15 Gm Of Glucse In 37.5 Gm Tube PO PRN PRN Hypoglycemia Protocol Sodium Chloride 1,000 mls @ 100 mls/hr 02/13/24 01:20 02/16/24 09:25 Normal Saline Iv IV CONT 100 mls/hr .Q10H YESENIA Administration Dextrose 1,000 mls @ 100 mls/hr 02/13/24 01:22 Dextrose 5% 1,000 Ml IVPB PRN PRN Hypoglycemia Protocol Morphine Sulfate 15 mg 02/15/24 10:11 02/16/24 06:06 Morphine Sulfate (*Crx) 15 Mg Tab Ir PO 15 mg Q6H PRN Administration Pain Rated 4-6 Morphine Sulfate 2 mg 02/15/24 10:13 02/15/24 23:15 Morphine Sulfate (*Crx) 4 Mg/Ml Inj IV PUSH 2 mg Q4H PRN Administration Pain Rated 7-10 Ondansetron HCl 4 mg 02/13/24 01:17 02/16/24 08:24 Ondansetron Inj 4 Mg/2 Ml Vial IV PUSH 4 mg Q6H PRN Administration Nausea And Vomiting Pantoprazole Sodium 40 mg 02/13/24 09:00 02/16/24 08:18 Pantoprazole 40 Mg Tablet PO 40 mg DAILY YESENIA Administration Radiology Results: ITS Impressions Transvaginal US 02/13/24 15:11 IMPRESSION: Bilateral septated cysts with internal echoes suggestive of hemorrhagic cysts. Follow-up advised. Status post hysterectomy. Otherwise, normal pelvic ultrasound. Venous Doppler Study 02/14/24 14:47 IMPRESSION: 1. No deep venous thrombosis in the left lower limb. 2. Small left Arreaga's cyst. Labs Labs: Laboratory Results - last 24 hr 02/15/24 02/16/24 02/16/24 18:40 00:11 05:31 WBC 5.0 RBC 3.78 L Hgb 9.9 L Hct 32.5 L MCV 86.0 MCH 26.2 MCHC 30.5 L RDW 15.1 H Plt Count 250 MPV 11.5 H Immature Gran % (Auto) 0.2 Neut % (Auto) 43.4 L Lymph % (Auto) 41.1 [place] % (Auto) 10.7 H Eos % (Auto) 3.4 Baso % (Auto) 1.2 Lymph # (Auto) 2.04 [place] # (Auto) 0.5 Eos # (Auto) 0.2 Baso # (Auto) 0.1 Abs Immat Gran (auto) 0.01 Absolute Neuts (auto) 2.2 Absolute Nucleated RBC 0.000 Nucleated RBC % 0.0 Sodium 135 L Potassium 3.9 Chloride 108 H Carbon Dioxide 25 Anion Gap 2 L BUN 14 Creatinine 1.10 H Estim Creat Clear Calc 57 Estimated GFR 53 L Glucose 90 POC Capillary Glucose 108 H 95 Calcium 8.0 L Total Bilirubin 0.7 AST 417 H ALT 404 H Alkaline Phosphatase 555 H Total Protein 7.0 Albumin 3.2 L 02/16/24 02/16/24 07:56 11:50 WBC RBC Hgb Hct MCV MCH MCHC RDW Plt Count MPV Immature Gran % (Auto) Neut % (Auto) Lymph % (Auto) [place] % (Auto) Eos % (Auto) Baso % (Auto) Lymph # (Auto) [place] # (Auto) Eos # (Auto) Baso # (Auto) Abs Immat Gran (auto) Absolute Neuts (auto) Absolute Nucleated RBC Nucleated RBC % Sodium Potassium Chloride Carbon Dioxide Anion Gap BUN Creatinine Estim Creat Clear Calc Estimated GFR Glucose POC Capillary Glucose 82 71 Calcium Total Bilirubin AST ALT Alkaline Phosphatase Total Protein Albumin
[2024-02-16] MEDS: MORPHINE SULFATE (*CRX) 4 MG/ML INJ 2 MG IV PUSH ×2 (16:55→20:12)
[2024-02-16 17:07] LABS: Glucose Point of Care 74 mg/dl (65-105)
[2024-02-16 20:00] VITALS: BP 123/61; PULSE 59; RESP 16; TEMP 36.4; O2SAT 100
--- NOTE | 2024-02-16 22:06 | PC.NURSE ---
pt resting comfortably on room air with multiple complaints of abdominal pain. pt denies nausea at this time. iv fluids continue. pt aware she will be npo at midnight and having a snack
[2024-02-17] VITALS (22 sets, daily range): BP systolic 108–197; BP diastolic 59–118; PULSE 51–97; RESP 12–20; TEMP 36.4–36.9; O2SAT 94–100
[2024-02-17] MEDS: LACTATED RINGERS 1,000 ML 80 ML IV CONT (00:06)
[2024-02-17 00:07] LABS: Glucose Point of Care 103 mg/dl (65-105)
[2024-02-17] MEDS: MORPHINE SULFATE (*CRX) 15 MG TAB IR PO (04:17)
[2024-02-17 05:25] LABS: Glucose Point of Care 91 mg/dl (65-105)
[2024-02-17 06:24] LABS: Basophils Absolute Auto 0.1 K/mm3 (0.0-0.1); Basophils Percent Auto 1.7 % (0.2-1.2); Eosinophils Absolute Auto 0.2 K/mm3 (0-0.3); Eosinophils Percent Auto 3.4 % (0-4.4); Hematocrit 32.4 % (37.0-47.0); Hemoglobin 9.9 g/dL (12.0-15.0); Lymphocytes Absolute Auto 1.86 K/mm3 (0.9-3.2); Lymphocytes Percent Auto 39.7 % (18.3-44.2); Mean Corpuscular HGB Conc 30.6 g/dl (32-36); Mean Corpuscular Hemoglobin 26.5 pg (26-34); Mean Corpuscular Volume 86.6 fl (80-100); Mean Platelet Volume 11.8 fl (7.4-10.4); Monocytes Absolute Auto 0.4 K/mm3 (0.1-0.6); Neutrophils Absolute Auto 2.2 K/mm3 (1.3-6.7); Neutrophils Percent Auto 46.2 % (45.5-73.1); Platelet Count Result 250 k/mm3 (150-375); Red Blood Count 3.74 M/mm3 (4.2-5.4); Red Cell Distribution Width 15.5 % (11.5-14.5); White Blood Count 4.7 K/mm3 (4.5-10.0)
[2024-02-17 06:36] LABS: Alanine Aminotransferase 356 U/L (6-35); Albumin Level 3.1 g/dL (3.5-5.1); Alkaline Phosphatase 489 U/L (38-126); Anion Gap 3 mmol/L (4-12); Aspartate Amino Transferase 255 U/L (14-36); Bilirubin,Total 0.5 mg/dL (0.2-1.3); Blood Urea Nitrogen 21 mg/dL (7-17); Calcium 8.3 mg/dL (8.4-10.2); Carbon Dioxide 26 mmol/L (22-30); Chloride 108 mmol/L (98-107); Estimated CRCL calculation 46 ml/min; Estimated Glomerular Filt Rate 40; Glucose 83 mg/dL (65-110); Potassium 4.1 mmol/L (3.4-5.0); Sodium 137 mmol/L (137-145)
--- NOTE | 2024-02-17 11:43 | WPDHPUPDATE1 ---
History and Physical Update Update Date/Time: 02/17/24 11:43 History and Physical has been reviewed, including an updated exam of the patient. There are NO changes in the patient's condition. Risks, benefits, and alternatives have been discussed and questions answered. Patient agrees to proceed with procedure.
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
[2024-02-17] MEDS: ceFAZolin 2 GM/D5W 50 ML 2 GM/50 ML BAG IVPB (12:25)
--- NOTE | 2024-02-17 15:54 | W.PM.PROC2 ---
Procedure Note - Detailed Date of Procedure 02/17/24 Pre-op Diagnosis Incarcerated recurrent incisional hernia with 18 cm defect Post-op Diagnosis Other (Incarcerated recurrent incisional hernia with 26 cm defect) Procedure Performed Repair incarcerated incisional hernia with mesh, bilateral myofascial flap advancement, 6 cm on the right, 3 cm on the left Surgeon Parag Quigley MD Sand Cutting Machine Operator Dru BYERS Anesthesia General Indications Patient had undergone a hernia repair at an outside hospital last September. She developed abdominal pain with a bulge and came to the emergency room at [facility]. Exam and imaging there showed a non reducible supraumbilical incarcerated hernia. She has a history of many surgeries including gastric bypass surgery as well as the more recent hernia repair. Once she transferred here, the hernia was able to be reduced. It was noted that she had several hernias along the line of her old incision. She she has a history of methamphetamine addiction, chronic anemia, elevated liver enzymes and has stayed in the hospital this week for workup of these abnormalities. She is taken to surgery now for repair of her incarcerated hernia. Besides the incarcerated hernia to other palpable hernias were noted and about 18 cm were between the uppermost and lower most hernias. Findings Patient had multiple midline abdominal wall defects. Beside the upper 2 abdominal incisional hernias that were palpable, she had more hernia defects below the umbilicus. None of these defects were more than 10 cm from each other. All told the this was 26 cm between the uppermost defect and the lower most. The incarcerated hernia was the largest and was in the midline. I did not find any evidence of a mesh hernia repair previously. I did not see any evidence of a small bowel resection. Description of Procedure Patient was taken to surgery and induced into general anesthesia. Dodge catheter was placed and the abdomen was prepped and draped. The old scar was excised and the skin was discarded. Dissection was then continued through the midline fascia. We were able to enter the peritoneal cavity in the upper aspect of the incision. There were adhesions around this area but I was able to pass my finger to the left side of the midline, in the peritoneal cavity and find a free area. I then went about taking down mostly omental anterior abdominal wall adhesions. Multiple hernia defects were discovered as noted above. The main hernia that was tender and had been incarcerated was just above the umbilicus. There was a trochar site hernia as the most cephalad defect. There were additional hernia defects below the umbilicus. Once the midline fascia had been divided the length of the wound and omental and small-bowel adhesions had been taken down from the anterior abdominal wall, I measured the length of the multiple hernia defects from cephalad to caudad. This measured 26 cm. Some of these were off the midline more towards the patient's right side. After the abdomen had been opened fully, I then took down any remaining anterior abdominal wall adhesions. I placed a blue towel over the viscera completely. We elevated the patient's left-sided abdominal wall. Incision was made over the most medial aspect of the posterior rectus fascia. Using careful dissection this opening was carried cephalad and caudad for at least 12-15 cm. I then continued dissection of the posterior fascia off the rectus muscle to the lateral most extent of the rectus muscle. I then continued dividing the posterior rectus fascia medially up to near the xiphoid process. I then freed the posterior fascia from the rectus muscle to this extent as well. Finally I extended the dissection caudally to the retropubic area and freed the rectus muscle from the peritoneum below the semicircular line. We then exposed the transversus muscle in the left upper abdomen just under the costal margin. Using a clamp and exposing the muscle fibers, the fibers were divided using the cautery. We slowly and carefully proceeded with this dissection exposing the transversus fascia and peritoneum. Care was taken to stay medial to the neurovascular bundles innervating the rectus muscle at its lateral edge. Dissection was also carried such that a space under the sternum was created and was contiguous with this left-sided dissection. We dissected all the way to the back on the left side in this transversus plane. We then continued this dissection of the transversus release on caudally and eventually went below the semicircular line and finished the transversus release on the left side. A few areas had to be touched up with additional dissection particularly in the cephalad aspect of the dissection. Eventually we had a very large space for mesh placement that went all the way to the back. There was 1 or 2 holes that I repaired with 3-0 Vicryl. I then changed sides with the 1st medical office assistant instructor. I went to the patient's left side and the right rectus was exposed. In similar fashion, posterior rectus was divided and then dissected off the rectus muscle to the lateral most extent of the rectus. This was completed the entire length of the abdominal cavity. I then exposed the transversus just under the costal margin on the right and began slowly dividing the transversus muscle and creating the transversus dissection plane on the patient's right side. There were more adhesions on the right side and more holes in peritoneum were created. None the less, a full right-sided transversus abdominis release was created similar to what had been done on the left side. We closed the result holes with interrupted 3-0 Vicryl suture. I then checked and divided some additional transversus fibers so that the mesh would have plenty of room to lie in maryjane position. All looked quite good. I then removed the blue towel. The posterior rectus fascia was then closed with bidirectional running 0 Vicryl suture from the most cephalad extent and the most caudad, tying in the middle. This created a nice in closure of the abdominal viscera. An extra-large soft polypropylene mesh was then placed in the abdomen and maryjane position, IE 1 of the corners under the xiphoid process and sternum and another corner under the pubis. On the right the left side the corners there had plenty of room to lie in the posterior rectus and transversus spaces. Once the mesh was in good position with no rolled edges or other wrinkles, a 19 Nepali Jay drain was placed in the retrorectus space and brought out through the left lower quadrant abdominal wall. The drain was sutured to the skin with 2-0 silk. We then closed the midline fascia with bidirectional running 1. PDS suture. The subcutaneous was closed with interrupted 3-0 Vicryl suture. The skin was then closed with interrupted 3-0 and 4-0 Vicryl subcuticular skin sutures. The wound was dressed with Xeroform gauze, fluffs, ABDs and Medipore tape. Patient was then awakened and taken to recovery in good condition. Sponge and needle counts were correct x2. Estimated Blood Loss -150 Drains Yes (Left lower quadrant rectal rectus JUWAN drain, Dodge catheterization) Pathology None sent Complications None Condition Stable Disposition PACU [facility] Billing Surgery - Charge Forward: Surgery Billing (Repair incarcerated recurrent incisional hernia with 26 cm defect with mesh, bilateral myofascial flap advancement-6 cm on the right, 3 cm on the left.)
[2024-02-17] MEDS: LACTATED RINGERS 1,000 ML 30 ML IV CONT ×2 (15:57→15:58)
[2024-02-17] MEDS: HYDROmorphone HCL INJ (*CRX) 1 MG/ML SYR IV PUSH (16:08)
[2024-02-17] MEDS: diazePAM INJ (*CRX) 10 MG/2 ML SYRINGE 2 MG IV PUSH (16:17)
[2024-02-17] MEDS: HYDROmorphone HCL INJ (*CRX) 1 MG/ML SYR 0.25 MG IV PUSH ×5 (16:25→17:12)
--- NOTE | 2024-02-17 16:29 | SUR.PHASEI ---
Per Dr. Quigley, blood that is currently in orders is not needed, was just on standby for surgery.
[2024-02-17] MEDS: LABETALOL HCL INJ 100 MG/20 ML VIAL 10 MG IV PUSH ×2 (17:00→17:23)
[2024-02-17] MEDS: ONDANSETRON INJ 4 MG/2 ML VIAL IV PUSH (17:05)
--- NOTE | 2024-02-17 17:27 | PM.IMPN ---
Progress Note: A&P Assessment and Plan (1) Periumbilical hernia: Code(s): K42.9 - Umbilical hernia without obstruction or gangrene Status: Acute Assessment and Plan: History of a small-bowel obstruction in September of 2023 she reportedly had an exploratory laparotomy with small-bowel resection and ventral hernia repair with mesh. She states that the hernia they repaired was in the right upper quadrant and had not noticed a periumbilical bulge until a few days ago. Patient has a reducible umbilical hernia given edema patient may have some component of incarceration. - Abdomen/pelvis CT 09/30/23: An area of thickened bowel in the pelvis may indicate ischemia versus inflammatory changes or Crohn's disease. - Abdomen/pelvis CT: Moderate periumbilical hernia containing a loop of unobstructed small bowel, with surrounding edema/inflammatory change. - Diet: Heart healthy - Analgesics - IV hydration NS@ 100ml/hr. - Surgery Repair Recurrent Incisional Hernia with Mesh today. (2) Ovarian cyst: Code(s): N83.209 - Unspecified ovarian cyst, unspecified side Status: Acute Assessment and Plan: - Abdomen/pelvis CT: 3.5 cm simple appearing left ovarian cyst. Recommend nonemergent but timely follow-up pelvic ultrasound for further characterization. - Pelvic US: Bilateral septated cysts with internal echoes suggestive of hemorrhagic cysts. Follow-up advised. Status post hysterectomy. Otherwise, normal pelvic ultrasound. - Follow up outpatient (3) Anemia: Code(s): D64.9 - Anemia, unspecified Status: Chronic Assessment and Plan: Patient reports intermittent bloody stools. Prior CT scan in September when patient had bowel obstruction suggested possible min of inflammatory bowel disease or Crohn's disease. Patient's CT today does not mention this. Patient's dark stools could be due to her iron supplementation. Some of her diarrhea could also be due to withdrawal from recent meth use. - H/H 9.9/32.4 on am labs - fecal occult ordered. - continue iron supplementation - continue patient's home Protonix. - she could benefit from outpatient evaluation with colonoscopy. Consider GI consult pending fecal occult. (4) Diarrhea: Qualifiers: Diarrhea type: unspecified type Qualified Code(s): R19.7 - Diarrhea, unspecified Code(s): R19.7 - Diarrhea, unspecified Status: Acute Assessment and Plan: Patient reports intermittent bloody stools. Prior CT scan in September when patient had bowel obstruction suggested possible min of inflammatory bowel disease or Crohn's disease. Patient's CT today does not mention this. Patient's dark stools could be due to her iron supplementation. Some of her diarrhea could also be due to withdrawal from recent meth use. - fecal occult ordered. - continue patient's home Protonix. - she could benefit from outpatient evaluation with colonoscopy. Consider GI consult pending fecal occult. - monitor vital signs, I&Os, track stool output, watch for bloody stools, neuro status and patient is a fall risk - monitor serum electrolytes and CBC (5) Transaminitis: Code(s): R74.01 - Elevation of levels of liver transaminase levels Status: Acute Assessment and Plan: LFTs on admission: tot bili WNL, AST 386, ALT 188, alk phos 177 - LFT's this AM: AST 255, ALT 356, alk phos 489. - Liver normal on abdomen/pelvis CT. Patient s/p cholecystectomy. - Hepatitis panel negative - Possibly meth induced, encouraged cessation - Monitor (6) Methamphetamine addiction: Code(s): F15.20 - Other stimulant dependence, uncomplicated Status: Acute Assessment and Plan: Last used a week ago. UDS +. Patient is interested in cessation. - Care coordination consulted for resources (7) Lymphedema of left lower extremity: Code(s): I89.0 - Lymphedema, not elsewhere classified Status: Acute Assessment and Plan: Patient has chronic lymphedema with chronic venous stasis changes. - maleate cream for lower extremities - venous dopplers negative - Patient reports that she uses lymphatic bandages at home. (8) Hypertension: Qualifiers: Hypertension type: unspecified Qualified Code(s): I10 - Essential (primary) hypertension Code(s): I10 - Essential (primary) hypertension Status: Inactive Assessment and Plan: Chronic, currently holding home medications as patients BP has been stable despite being off of them. - patient hypertensive, will resume home medications - amlodipine 5 mg daily and lasix 40 mg daily - Blood pressure 161/93 - monitor Subjective Date/time seen: 02/17/24 17:27 Interval history: Patient is PACU status post abdominal hernia repair with mesh surgery. Patient reports pain in abdomen is a 6 , constant, and cramping. Patient denies shortness of breath, nausea, headache, or dizziness. Patient worried if she is going to be okay. Review of Systems Review of Systems: All systems reviewed & are unremarkable except as noted in HPI and below Exam Const: General: uncomfortable Resp: Effort & Inspection: normal respiratory effort Auscultation: clear to auscultation bilaterally Cardio: Rate: regular rate Rhythm: regular rhythm GI: Other: Abdominal incision with large dressing with ABD. Skin: Other: Abdominal incision with large dressing with ABD. Neuro: Speech: normal speech Extrem: Other: 2+ LLE lymphedema with scab in [facility]. Psych: Mental Status: mental status grossly normal Objective Data Vital Signs Vital Signs: Vital Signs - 24 hr 02/16/24 20:00 02/16/24 20:00 02/17/24 05:12 Temperature 97.6 F 98.0 F Pulse Rate 59 L 60 Respiratory Rate 16 14 Blood Pressure 123/61 108/59 L Pulse Oximetry 100 97 Oxygen Delivery Room Air Oxygen Flow Rate 02/17/24 08:10 02/17/24 11:00 02/17/24 15:57 Temperature 97.5 F L 98.5 F Pulse Rate 51 L 90 Respiratory Rate 14 14 Blood Pressure 125/67 173/95 H Pulse Oximetry 100 100 Oxygen Delivery Room Air Room Air Simple Face Mask Oxygen Flow Rate 8 02/17/24 16:10 02/17/24 16:25 02/17/24 16:40 Temperature Pulse Rate 97 92 91 Respiratory Rate 18 18 17 Blood Pressure 197/114 H 184/118 H 187/108 H Pulse Oximetry 100 100 95 Oxygen Delivery Simple Face Mask Room Air Room Air Oxygen Flow Rate 8 02/17/24 16:55 02/17/24 17:00 02/17/24 17:10 Temperature Pulse Rate 95 93 79 Respiratory Rate 12 15 Blood Pressure 185/102 H 178/98 H Pulse Oximetry 98 98 Oxygen Delivery Nasal Cannula Nasal Cannula Oxygen Flow Rate 2 2 02/17/24 17:23 Temperature Pulse Rate 90 Respiratory Rate Blood Pressure Pulse Oximetry Oxygen Delivery Oxygen Flow Rate Intake/Output Intake/Output: Intake & Output 02/14/24 02/15/24 02/16/24 02/17/24 23:59 23:59 23:59 23:59 Intake Total 2636.7 3585 4200 951.7 Output Total 130 Balance 2636.7 3585 4200 821.7 Meds/Results Medications: Active Medications Generic Name Dose Route Start Last Admin Trade Name Frefanny PRN Reason Stop Dose Admin Acetaminophen 650 mg 02/14/24 13:53 Acetaminophen 325 Mg Tablet PO Q6H PRN Mild Pain (1-3) or Fever Amlodipine Besylate 5 mg 02/14/24 09:00 02/17/24 10:13 Amlodipine Besylate 5 Mg Tablet PO Not Given DAILY YESENIA Dextrose 12.5 gm 02/13/24 01:22 Dextrose 50% 25 Gm/50 Ml Syringe IV PUSH PRN PRN Hypoglycemia Protocol Enoxaparin Sodium 40 mg 02/16/24 09:00 02/17/24 08:15 Enoxaparin 40 Mg/0.4 Ml Syringe SUB-Q Not Given DAILY YESENIA Ferrous Sulfate 325 mg 02/13/24 09:00 02/17/24 08:51 Ferrous Sulfate [address] BY MOUTH Not Given DAILY [facility] Folic Acid 1 mg 02/13/24 09:00 02/17/24 08:51 Folic Acid 1 Mg Tablet PO Not Given DAILY [facility] Furosemide 40 mg 02/14/24 09:00 02/17/24 08:51 Furosemide 40 Mg Tablet PO Not Given DAILY [facility] Glucagon 1 mg 02/13/24 01:22 Glucagon For Inj 1 Mg Vial IM PRN PRN Hypoglycemia Protocol Glucose 15 gm 02/13/24 01:22 Glucose Oral Gel 15 Gm Of Glucse In 37.5 Gm Tube PO PRN PRN Hypoglycemia Protocol Hydromorphone HCl 0.25 mg 02/17/24 16:02 02/17/24 17:12 Hydromorphone Hcl Inj (*Crx) 1 Mg/Ml Syr IV PUSH 0.25 mg Q5M PRN Administration Pain Dextrose 1,000 mls @ 100 mls/hr 02/13/24 01:22 Dextrose 5% 1,000 Ml IVPB PRN PRN Hypoglycemia Protocol Lactated Ringer's 1,000 mls @ 80 mls/hr 02/16/24 14:40 02/17/24 04:17 Lr - Lactated Ringers Iv IV CONT Not Given .[id number] YESENIA Sodium Chloride 250 mls @ 30 mls/hr 02/17/24 12:01 Normal Saline Iv IV CONT 02/17/24 20:20 .[id number] STA Lactated Ringer's 1,000 mls @ 30 mls/hr 02/17/24 16:05 02/17/24 15:58 Lr - Lactated Ringers Iv IV CONT 30 mls/hr .Q24H YESENIA Administration Morphine Sulfate 15 mg 02/15/24 10:11 02/17/24 04:17 Morphine Sulfate (*Crx) 15 Mg Tab Ir PO 15 mg Q6H PRN Administration Pain Rated 4-6 Morphine Sulfate 2 mg 02/15/24 10:13 02/16/24 20:12 Morphine Sulfate (*Crx) 4 Mg/Ml Inj IV PUSH 2 mg Q4H PRN Administration Pain Rated 7-10 Ondansetron HCl 4 mg 02/13/24 01:17 02/16/24 08:24 Ondansetron Inj 4 Mg/2 Ml Vial IV PUSH 4 mg Q6H PRN Administration Nausea And Vomiting Ondansetron HCl 4 mg 02/17/24 16:02 02/17/24 17:05 Ondansetron Inj 4 Mg/2 Ml Vial IV PUSH 4 mg ONCE PRN Administration Nausea Pantoprazole Sodium 40 mg 02/13/24 09:00 02/17/24 08:51 Pantoprazole 40 Mg Tablet PO Not Given DAILY [facility] Radiology Results: ITS Impressions Transvaginal US 02/13/24 15:11 IMPRESSION: Bilateral septated cysts with internal echoes suggestive of hemorrhagic cysts. Follow-up advised. Status post hysterectomy. Otherwise, normal pelvic ultrasound. Venous Doppler Study 02/14/24 14:47 IMPRESSION: 1. No deep venous thrombosis in the left lower limb. 2. Small left Arreaga's cyst. Labs Labs: Laboratory Results - last 24 hr 02/16/24 02/16/24 02/17/24 16:37 23:49 05:14 WBC 4.7 RBC 3.74 L Hgb 9.9 L Hct 32.4 L MCV 86.6 MCH 26.5 MCHC 30.6 L RDW 15.5 H Plt Count 250 MPV 11.8 H Immature Gran % (Auto) 0.0 Neut % (Auto) 46.2 Lymph % (Auto) 39.7 [place] % (Auto) 9.0 H Eos % (Auto) 3.4 Baso % (Auto) 1.7 H Lymph # (Auto) 1.86 [place] # (Auto) 0.4 Eos # (Auto) 0.2 Baso # (Auto) 0.1 Abs Immat Gran (auto) 0.00 Absolute Neuts (auto) 2.2 Absolute Nucleated RBC 0.000 Nucleated RBC % 0.0 Sodium 137 Potassium 4.1 Chloride 108 H Carbon Dioxide 26 Anion Gap 3 L BUN 21 H Creatinine 1.40 H Estim Creat Clear Calc 46 Estimated GFR 40 L Glucose 83 POC Capillary Glucose 103 Calcium 8.3 L Total Bilirubin 0.5 AST 255 H ALT 356 H Alkaline Phosphatase 489 H Total Protein 7.0 Albumin 3.1 L Blood Type AB Positive Antibody Screen Negative Crossmatch See Detail 02/17/24 05:17 WBC RBC Hgb Hct MCV MCH MCHC RDW Plt Count MPV Immature Gran % (Auto) Neut % (Auto) Lymph % (Auto) [place] % (Auto) Eos % (Auto) Baso % (Auto) Lymph # (Auto) [place] # (Auto) Eos # (Auto) Baso # (Auto) Abs Immat Gran (auto) Absolute Neuts (auto) Absolute Nucleated RBC Nucleated RBC % Sodium Potassium Chloride Carbon Dioxide Anion Gap BUN Creatinine Estim Creat Clear Calc Estimated GFR Glucose POC Capillary Glucose 91 Calcium Total Bilirubin AST ALT Alkaline Phosphatase Total Protein Albumin Blood Type Antibody Screen Crossmatch Quality VTE Prophylaxis VTE prophylaxis: mechanical ordered
[2024-02-17 18:22] LABS: Glucose Point of Care 116 mg/dl (65-105)
[2024-02-17] MEDS: SODIUM CHLORIDE 0.9% IV 1,000 ML 100 ML IV CONT (18:50)
[2024-02-17] MEDS: MORPHINE SULFATE PCA (*CRX) 30 MG/30 ML SYR IV CONT (18:57)
[2024-02-18] VITALS (18 sets, daily range): BP systolic 102–139; BP diastolic 52–82; PULSE 70–89; RESP 8–16; TEMP 36.4–37.1; O2SAT 95–100
[2024-02-18] MEDS: SODIUM CHLORIDE 0.9% IV 1,000 ML 100 ML IV CONT ×2 (04:57→15:44)
[2024-02-18 05:33] LABS: Basophils Percent Auto 0.1 % (0.2-1.2); Eosinophils Absolute Auto 0.1 K/mm3 (0-0.3); Eosinophils Percent Auto 1.3 % (0-4.4); Hemoglobin 10.4 g/dL (12.0-15.0); Immature Granulocyte Absolute 0.05 K/mm3 (0.00-0.031); Immature Granulocyte Percent A 0.5 % (0-0.5); Lymphocytes Absolute Auto 0.42 K/mm3 (0.9-3.2); Mean Corpuscular HGB Conc 30.6 g/dl (32-36); Mean Corpuscular Hemoglobin 26.3 pg (26-34); Mean Corpuscular Volume 85.9 fl (80-100); Mean Platelet Volume 11.9 fl (7.4-10.4); Monocytes Absolute Auto 0.7 K/mm3 (0.1-0.6); Monocytes Percent Auto 6.6 % (2.6-8.5); Neutrophils Absolute Auto 9.2 K/mm3 (1.3-6.7); Neutrophils Percent Auto 87.5 % (45.5-73.1); Platelet Count Result 269 k/mm3 (150-375); Red Blood Count 3.96 M/mm3 (4.2-5.4); Red Cell Distribution Width 16.1 % (11.5-14.5); White Blood Count 10.5 K/mm3 (4.5-10.0)
[2024-02-18 05:50] LABS: Alanine Aminotransferase 299 U/L (6-35); Albumin Level 3.2 g/dL (3.5-5.1); Alkaline Phosphatase 516 U/L (38-126); Anion Gap 4 mmol/L (4-12); Aspartate Amino Transferase 205 U/L (14-36); Bilirubin,Total 0.8 mg/dL (0.2-1.3); Blood Urea Nitrogen 26 mg/dL (7-17); Calcium 7.7 mg/dL (8.4-10.2); Carbon Dioxide 23 mmol/L (22-30); Chloride 106 mmol/L (98-107); Estimated CRCL calculation 32 ml/min; Estimated Glomerular Filt Rate 26; Glucose 109 mg/dL (65-110); Potassium 4.8 mmol/L (3.4-5.0); Sodium 133 mmol/L (137-145)
[2024-02-18 06:07] LABS: Glucose Point of Care 116 mg/dl (65-105)
[2024-02-18] MEDS: MORPHINE SULFATE PCA (*CRX) 30 MG/30 ML SYR IV CONT ×2 (06:35→17:38)
[2024-02-18] MEDS: FOLIC ACID 1 MG TABLET PO (09:17)
[2024-02-18] MEDS: ENOXAPARIN 40 MG/0.4 ML SYRINGE SUB-Q (09:18)
[2024-02-18] MEDS: FERROUS SULFATE 325 MG TABLET DR BY MOUTH (09:18)
[2024-02-18] MEDS: PANTOPRAZOLE 40 MG TABLET PO (09:18)
--- NOTE | 2024-02-18 10:03 | PM.IMPN ---
Progress Note: A&P Assessment and Plan (1) Periumbilical hernia: Code(s): K42.9 - Umbilical hernia without obstruction or gangrene Status: Acute Assessment and Plan: History of a small-bowel obstruction in September of 2023 she reportedly had an exploratory laparotomy with small-bowel resection and ventral hernia repair with mesh. She states that the hernia they repaired was in the right upper quadrant and had not noticed a periumbilical bulge until a few days ago. Patient has a reducible umbilical hernia given edema patient may have some component of incarceration. - Abdomen/pelvis CT 09/30/23: An area of thickened bowel in the pelvis may indicate ischemia versus inflammatory changes or Crohn's disease. - Abdomen/pelvis CT: Moderate periumbilical hernia containing a loop of unobstructed small bowel, with surrounding edema/inflammatory change. - Diet: Heart healthy - Analgesics - IV hydration NS@ 100ml/hr. - Surgery Repair Recurrent Incisional Hernia with Mesh yesterday, dressing C/D/I. (2) Ovarian cyst: Code(s): N83.209 - Unspecified ovarian cyst, unspecified side Status: Acute Assessment and Plan: - Abdomen/pelvis CT: 3.5 cm simple appearing left ovarian cyst. Recommend nonemergent but timely follow-up pelvic ultrasound for further characterization. - Pelvic US: Bilateral septated cysts with internal echoes suggestive of hemorrhagic cysts. Follow-up advised. Status post hysterectomy. Otherwise, normal pelvic ultrasound. - Follow up outpatient (3) Anemia: Code(s): D64.9 - Anemia, unspecified Status: Chronic Assessment and Plan: Patient reports intermittent bloody stools. Prior CT scan in September when patient had bowel obstruction suggested possible min of inflammatory bowel disease or Crohn's disease. Patient's CT today does not mention this. Patient's dark stools could be due to her iron supplementation. Some of her diarrhea could also be due to withdrawal from recent meth use. - H/H 10.4/34.0 on am labs - fecal occult ordered. - continue iron supplementation - continue patient's home Protonix. - she could benefit from outpatient evaluation with colonoscopy. Consider GI consult pending fecal occult. (4) Diarrhea: Qualifiers: Diarrhea type: unspecified type Qualified Code(s): R19.7 - Diarrhea, unspecified Code(s): R19.7 - Diarrhea, unspecified Status: Acute Assessment and Plan: Patient reports intermittent bloody stools. Prior CT scan in September when patient had bowel obstruction suggested possible min of inflammatory bowel disease or Crohn's disease. Patient's CT today does not mention this. Patient's dark stools could be due to her iron supplementation. Some of her diarrhea could also be due to withdrawal from recent meth use. - fecal occult ordered. - continue patient's home Protonix. - she could benefit from outpatient evaluation with colonoscopy. Consider GI consult pending fecal occult. - monitor vital signs, I&Os, track stool output, watch for bloody stools, neuro status and patient is a fall risk - monitor serum electrolytes and CBC (5) Transaminitis: Code(s): R74.01 - Elevation of levels of liver transaminase levels Status: Acute Assessment and Plan: LFTs on admission: tot bili WNL, AST 386, ALT 188, alk phos 177 - LFT's this AM: AST 205, ALT 299, alk phos 516. - Liver normal on abdomen/pelvis CT. Patient s/p cholecystectomy. - Hepatitis panel negative - Possibly meth induced, encouraged cessation - Monitor (6) Methamphetamine addiction: Code(s): F15.20 - Other stimulant dependence, uncomplicated Status: Acute Assessment and Plan: Last used a week ago. UDS +. Patient is interested in cessation. - Care coordination consulted for resources (7) Lymphedema of left lower extremity: Code(s): I89.0 - Lymphedema, not elsewhere classified Status: Acute Assessment and Plan: Patient has chronic lymphedema with chronic venous stasis changes. - maleate cream for lower extremities - venous dopplers negative - Patient reports that she uses lymphatic bandages at home. (8) Hypertension: Qualifiers: Hypertension type: unspecified Qualified Code(s): I10 - Essential (primary) hypertension Code(s): I10 - Essential (primary) hypertension Status: Inactive Assessment and Plan: Chronic, currently holding home medications as patients BP has been stable despite being off of them. - patient hypertensive, will resume home medications - amlodipine 5 mg daily and lasix 40 mg daily - Blood pressure 118/66 - monitor Subjective Date/time seen: 02/18/24 10:03 Interval history: Patient reports pain in surgical incision is a 6 , constant, and aching. Patient denies nausea, vomiting, shortness of breath, dizziness, or headache. Patient reported that she would try to eat her breakfast in a little while. Review of Systems Review of Systems: All systems reviewed & are unremarkable except as noted in HPI and below Exam Const: General: no acute distress and uncomfortable Resp: Effort & Inspection: normal respiratory effort Auscultation: clear to auscultation bilaterally Cardio: Rate: regular rate Rhythm: regular rhythm GI: GI Palp: Yes Tenderness to palpation present (GI) (surgical area) Other: hypoactive bowel sounds. Large abdominal dressing with ABD's in place. Dressing C/D/I. Skin: Other: Large abdominal dressing with ABD's in place. Dry skin to bilateral lower extremities. Dressing C/D/I. Neuro: Speech: normal speech Extrem: Other: 2+ LLE lymphedema with scab in center of [place]. Psych: Affect: normal affect Objective Data Vital Signs Vital Signs: Vital Signs - 24 hr 02/17/24 11:00 02/17/24 15:57 02/17/24 16:10 Temperature 97.5 F L 98.5 F Pulse Rate 51 L 90 97 Respiratory Rate 14 14 18 Blood Pressure 125/67 173/95 H 197/114 H Pulse Oximetry 100 100 100 Oxygen Delivery Room Air Simple Face Mask Simple Face Mask Oxygen Flow Rate 8 8 Fraction of Inspired Oxygen 02/17/24 16:25 02/17/24 16:40 02/17/24 16:55 Temperature Pulse Rate 92 91 95 Respiratory Rate 18 17 12 Blood Pressure 184/118 H 187/108 H 185/102 H Pulse Oximetry 100 95 98 Oxygen Delivery Room Air Room Air Nasal Cannula Oxygen Flow Rate 2 Fraction of Inspired Oxygen 02/17/24 17:00 02/17/24 17:10 02/17/24 17:23 Temperature Pulse Rate 93 79 90 Respiratory Rate 15 Blood Pressure 178/98 H Pulse Oximetry 98 Oxygen Delivery Nasal Cannula Oxygen Flow Rate 2 Fraction of Inspired Oxygen 02/17/24 17:25 02/17/24 17:33 02/17/24 17:40 Temperature 97.7 F Pulse Rate 77 77 Respiratory Rate 14 12 Blood Pressure 161/93 H 146/93 H 137/86 Pulse Oximetry 98 99 Oxygen Delivery Nasal Cannula Nasal Cannula Oxygen Flow Rate 2 2 Fraction of Inspired Oxygen 02/17/24 18:15 02/17/24 18:57 02/17/24 17:56 Temperature 98.1 F Pulse Rate 77 Respiratory Rate 16 16 Blood Pressure 154/92 H Pulse Oximetry 99 99 97 Oxygen Delivery Nasal Cannula Oxygen Flow Rate 2 Fraction of Inspired Oxygen 02/17/24 18:11 02/17/24 18:41 02/17/24 19:48 Temperature 97.9 F 97.6 F 98.2 F Pulse Rate 84 89 87 Respiratory Rate 16 16 16 Blood Pressure 161/92 H 153/85 H 153/85 H Pulse Oximetry 100 98 94 Oxygen Delivery Oxygen Flow Rate Fraction of Inspired Oxygen 02/17/24 20:00 02/17/24 22:57 02/18/24 02:00 Temperature 98.3 F 97.9 F Pulse Rate 87 91 86 Respiratory Rate 16 20 13 Blood Pressure 135/74 112/52 L Pulse Oximetry 94 100 98 Oxygen Delivery Nasal Cannula Oxygen Flow Rate 2 Fraction of Inspired Oxygen 02/18/24 06:00 02/17/24 19:30 02/18/24 07:41 Temperature 98.0 F Pulse Rate 89 87 Respiratory Rate 16 18 9 L Blood Pressure 116/57 L 102/82 Pulse Oximetry 99 98 99 Oxygen Delivery Nasal Cannula Oxygen Flow Rate 2 Fraction of Inspired Oxygen 02/18/24 07:44 02/18/24 07:57 02/18/24 08:04 Temperature Pulse Rate Respiratory Rate 8 L 16 Blood Pressure Pulse Oximetry 99 100 100 Oxygen Delivery Nasal Cannula Oxygen Flow Rate 2 Fraction of Inspired Oxygen 28 Intake/Output Intake/Output: Intake & Output 02/15/24 02/16/24 02/17/24 02/18/24 23:59 23:59 23:59 23:59 Intake Total 3585 4200 1101.7 1330 Output Total 170 650 Balance 3585 4200 931.7 680 Meds/Results Medications: Active Medications Generic Name Dose Route Start Last Admin Trade Name Freq PRN Reason Stop Dose Admin Amlodipine Besylate 5 mg 02/14/24 09:00 02/17/24 10:13 Amlodipine Besylate 5 Mg Tablet PO Not Given DAILY YESENIA Dextrose 12.5 gm 02/13/24 01:22 Dextrose 50% 25 Gm/50 Ml Syringe IV PUSH PRN PRN Hypoglycemia Protocol Enoxaparin Sodium 40 mg 02/18/24 09:00 02/18/24 09:18 Enoxaparin 40 Mg/0.4 Ml Syringe SUB-Q 40 mg DAILY YESENIA Administration Ferrous Sulfate 325 mg 02/13/24 09:00 02/18/24 09:18 Ferrous Sulfate [address] BY MOUTH 325 mg DAILY YESENIA Administration Folic Acid 1 mg 02/13/24 09:00 02/18/24 09:17 Folic Acid 1 Mg Tablet PO 1 mg DAILY YESENIA Administration Furosemide 40 mg 02/14/24 09:00 02/17/24 08:51 Furosemide 40 Mg Tablet PO Not Given DAILY YESENIA Glucagon 1 mg 02/13/24 01:22 Glucagon For Inj 1 Mg Vial IM PRN PRN Hypoglycemia Protocol Glucose 15 gm 02/13/24 01:22 Glucose Oral Gel 15 Gm Of Glucse In 37.5 Gm Tube PO PRN PRN Hypoglycemia Protocol Dextrose 1,000 mls @ 100 mls/hr 02/13/24 01:22 Dextrose 5% 1,000 Ml IVPB PRN PRN Hypoglycemia Protocol Morphine Sulfate 30 mg in 30 mls @ 0 mls/hr 02/17/24 17:56 02/18/24 07:57 Morphine Sulfate Electrical Sign Wirer Helper IV CONT 0 mg/hr PRN PRN 0 mls/hr SCUBA DIVING TEACHER Management Titration Protocol 0 MG/HR Sodium Chloride 1,000 mls @ 100 mls/hr 02/17/24 17:56 02/18/24 04:57 Normal Saline Iv IV CONT 100 mls/hr .Q10H YESENIA Administration Morphine Sulfate 15 mg 02/15/24 10:11 02/17/24 04:17 Morphine Sulfate (*Crx) 15 Mg Tab Ir PO 15 mg Q6H PRN Administration Pain Rated 4-6 Naloxone HCl 0.1 mg 02/17/24 17:56 Naloxone Hcl 0.4 Mg/Ml Vial IV PUSH Q2M PRN Opiate Reversal Pantoprazole Sodium 40 mg 02/13/24 09:00 02/18/24 09:18 Pantoprazole 40 Mg Tablet PO 40 mg DAILY YESENIA Administration Radiology Results: ITS Impressions Transvaginal US 02/13/24 15:11 IMPRESSION: Bilateral septated cysts with internal echoes suggestive of hemorrhagic cysts. Follow-up advised. Status post hysterectomy. Otherwise, normal pelvic ultrasound. Venous Doppler Study 02/14/24 14:47 IMPRESSION: 1. No deep venous thrombosis in the left lower limb. 2. Small left Arreaga's cyst. Labs Labs: Laboratory Results - last 24 hr 02/16/24 02/17/24 02/18/24 16:37 18:19 04:56 WBC 10.5 H RBC 3.96 L Hgb 10.4 L Hct 34.0 L MCV 85.9 MCH 26.3 MCHC 30.6 L RDW 16.1 H Plt Count 269 MPV 11.9 H Immature Gran % (Auto) 0.5 Neut % (Auto) 87.5 H Lymph % (Auto) 4.0 L [place] % (Auto) 6.6 Eos % (Auto) 1.3 Baso % (Auto) 0.1 L Lymph # (Auto) 0.42 L [place] # (Auto) 0.7 H Eos # (Auto) 0.1 Baso # (Auto) 0.0 Abs Immat Gran (auto) 0.05 H Absolute Neuts (auto) 9.2 H Absolute Nucleated RBC 0.000 Nucleated RBC % 0.0 Sodium 133 L Potassium 4.8 Chloride 106 Carbon Dioxide 23 Anion Gap 4 BUN 26 H Creatinine 2.00 H Estim Creat Clear Calc 32 Estimated GFR 26 L Glucose 109 POC Capillary Glucose 116 H Calcium 7.7 L Total Bilirubin 0.8 AST 205 H ALT 299 H Alkaline Phosphatase 516 H Total Protein 7.0 Albumin 3.2 L Blood Type AB Positive Antibody Screen Negative Crossmatch See Detail 02/18/24 05:48 WBC RBC Hgb Hct MCV MCH MCHC RDW Plt Count MPV Immature Gran % (Auto) Neut % (Auto) Lymph % (Auto) [place] % (Auto) Eos % (Auto) Baso % (Auto) Lymph # (Auto) [place] # (Auto) Eos # (Auto) Baso # (Auto) Abs Immat Gran (auto) Absolute Neuts (auto) Absolute Nucleated RBC Nucleated RBC % Sodium Potassium Chloride Carbon Dioxide Anion Gap BUN Creatinine Estim Creat Clear Calc Estimated GFR Glucose POC Capillary Glucose 116 H Calcium Total Bilirubin AST ALT Alkaline Phosphatase Total Protein Albumin Blood Type Antibody Screen Crossmatch Quality VTE Prophylaxis VTE prophylaxis: mechanical ordered
--- NOTE | 2024-02-18 10:28 | P.PNGS_ITS ---
Progress Note: A&P Assessment and Plan (1) Recurrent incisional hernia with incarceration: Code(s): K43.0 - Incisional hernia with obstruction, without gangrene Status: Acute Assessment and Plan: * Continue CAB WORKER on demand without basal rate. Gradually increase activity. Await further return of bowel function. (2) Methamphetamine addiction: Code(s): F15.20 - Other stimulant dependence, uncomplicated Status: Acute Subjective Subjective Date/Time Seen: 02/18/24 10:28 Interval history: Over-somnolent this AM with low respiratory rate. CAB WORKER basal rate discontinued and patient appears more awake now. Tolerating full liquids. Pain controlled. Passing flatus. Exam GI: Inspection: non-distended, incision (dressing dry) and other (JUWAN serosanguinous) GI Palp: Yes Soft to palpation and Yes Tenderness to palpation present (GI) (incisional) Auscultation: Hypoactive bowel sounds present Objective Data Vital Signs Vital Signs: Vital Signs - 24 hr 02/17/24 11:00 02/17/24 15:57 02/17/24 16:10 Temperature 97.5 F L 98.5 F Pulse Rate 51 L 90 97 Respiratory Rate 14 14 18 Blood Pressure 125/67 173/95 H 197/114 H Pulse Oximetry 100 100 100 Oxygen Delivery Room Air Simple Face Mask Simple Face Mask Oxygen Flow Rate 8 8 Fraction of Inspired Oxygen 02/17/24 16:25 02/17/24 16:40 02/17/24 16:55 Temperature Pulse Rate 92 91 95 Respiratory Rate 18 17 12 Blood Pressure 184/118 H 187/108 H 185/102 H Pulse Oximetry 100 95 98 Oxygen Delivery Room Air Room Air Nasal Cannula Oxygen Flow Rate 2 Fraction of Inspired Oxygen 02/17/24 17:00 02/17/24 17:10 02/17/24 17:23 Temperature Pulse Rate 93 79 90 Respiratory Rate 15 Blood Pressure 178/98 H Pulse Oximetry 98 Oxygen Delivery Nasal Cannula Oxygen Flow Rate 2 Fraction of Inspired Oxygen 02/17/24 17:25 02/17/24 17:33 02/17/24 17:40 Temperature 97.7 F Pulse Rate 77 77 Respiratory Rate 14 12 Blood Pressure 161/93 H 146/93 H 137/86 Pulse Oximetry 98 99 Oxygen Delivery Nasal Cannula Nasal Cannula Oxygen Flow Rate 2 2 Fraction of Inspired Oxygen 02/17/24 18:15 02/17/24 18:57 02/17/24 17:56 Temperature 98.1 F Pulse Rate 77 Respiratory Rate 16 16 Blood Pressure 154/92 H Pulse Oximetry 99 99 97 Oxygen Delivery Nasal Cannula Oxygen Flow Rate 2 Fraction of Inspired Oxygen 02/17/24 18:11 02/17/24 18:41 02/17/24 19:48 Temperature 97.9 F 97.6 F 98.2 F Pulse Rate 84 89 87 Respiratory Rate 16 16 16 Blood Pressure 161/92 H 153/85 H 153/85 H Pulse Oximetry 100 98 94 Oxygen Delivery Oxygen Flow Rate Fraction of Inspired Oxygen 02/17/24 20:00 02/17/24 22:57 02/18/24 02:00 Temperature 98.3 F 97.9 F Pulse Rate 87 91 86 Respiratory Rate 16 20 13 Blood Pressure 135/74 112/52 L Pulse Oximetry 94 100 98 Oxygen Delivery Nasal Cannula Oxygen Flow Rate 2 Fraction of Inspired Oxygen 02/18/24 06:00 02/17/24 19:30 02/18/24 07:41 Temperature 98.0 F Pulse Rate 89 87 Respiratory Rate 16 18 9 L Blood Pressure 116/57 L 102/82 Pulse Oximetry 99 98 99 Oxygen Delivery Nasal Cannula Oxygen Flow Rate 2 Fraction of Inspired Oxygen 02/18/24 07:44 02/18/24 07:57 02/18/24 08:04 Temperature Pulse Rate Respiratory Rate 8 L 16 Blood Pressure Pulse Oximetry 99 100 100 Oxygen Delivery Nasal Cannula Oxygen Flow Rate 2 Fraction of Inspired Oxygen 28 Intake/Output Intake/Output: Intake & Output 02/15/24 02/16/24 02/17/24 02/18/24 23:59 23:59 23:59 23:59 Intake Total 3585 4200 1101.7 1330 Output Total 170 650 Balance 3585 4200 931.7 680 Meds/Results Medications: Active Medications Generic Name Dose Route Start Last Admin Trade Name Freq PRN Reason Stop Dose Admin Amlodipine Besylate 5 mg 02/14/24 09:00 02/18/24 10:08 Amlodipine Besylate 5 Mg Tablet PO Not Given DAILY YESENIA Dextrose 12.5 gm 02/13/24 01:22 Dextrose 50% 25 Gm/50 Ml Syringe IV PUSH PRN PRN Hypoglycemia Protocol Enoxaparin Sodium 40 mg 02/18/24 09:00 02/18/24 09:18 Enoxaparin 40 Mg/0.4 Ml Syringe SUB-Q 40 mg DAILY YESENIA Administration Ferrous Sulfate 325 mg 02/13/24 09:00 02/18/24 09:18 Ferrous Sulfate [address] BY MOUTH 325 mg DAILY YESENIA Administration Folic Acid 1 mg 02/13/24 09:00 02/18/24 09:17 Folic Acid 1 Mg Tablet PO 1 mg DAILY YESENIA Administration Furosemide 40 mg 02/14/24 09:00 02/18/24 10:08 Furosemide 40 Mg Tablet PO Not Given DAILY YESENIA Glucagon 1 mg 02/13/24 01:22 Glucagon For Inj 1 Mg Vial IM PRN PRN Hypoglycemia Protocol Glucose 15 gm 02/13/24 01:22 Glucose Oral Gel 15 Gm Of Glucse In 37.5 Gm Tube PO PRN PRN Hypoglycemia Protocol Dextrose 1,000 mls @ 100 mls/hr 02/13/24 01:22 Dextrose 5% 1,000 Ml IVPB PRN PRN Hypoglycemia Protocol Morphine Sulfate 30 mg in 30 mls @ 0 mls/hr 02/17/24 17:56 02/18/24 07:57 Morphine Sulfate Complaint Evaluation Supervisor IV CONT 0 mg/hr PRN PRN 0 mls/hr CAB WORKER Management Titration Protocol 0 MG/HR Sodium Chloride 1,000 mls @ 100 mls/hr 02/17/24 17:56 02/18/24 04:57 Normal Saline Iv IV CONT 100 mls/hr .Q10H YESENIA Administration Morphine Sulfate 15 mg 02/15/24 10:11 02/17/24 04:17 Morphine Sulfate (*Crx) 15 Mg Tab Ir PO 15 mg Q6H PRN Administration Pain Rated 4-6 Naloxone HCl 0.1 mg 02/17/24 17:56 Naloxone Hcl 0.4 Mg/Ml Vial IV PUSH Q2M PRN Opiate Reversal Pantoprazole Sodium 40 mg 02/13/24 09:00 02/18/24 09:18 Pantoprazole 40 Mg Tablet PO 40 mg DAILY YESENIA Administration Radiology Results: ITS Impressions Transvaginal US 02/13/24 15:11 IMPRESSION: Bilateral septated cysts with internal echoes suggestive of hemorrhagic cysts. Follow-up advised. Status post hysterectomy. Otherwise, normal pelvic ultrasound. Venous Doppler Study 02/14/24 14:47 IMPRESSION: 1. No deep venous thrombosis in the left lower limb. 2. Small left Arreaga's cyst. Labs Labs: Laboratory Results - last 24 hr 02/16/24 02/17/24 02/18/24 16:37 18:19 04:56 WBC 10.5 H RBC 3.96 L Hgb 10.4 L Hct 34.0 L MCV 85.9 MCH 26.3 MCHC 30.6 L RDW 16.1 H Plt Count 269 MPV 11.9 H Immature Gran % (Auto) 0.5 Neut % (Auto) 87.5 H Lymph % (Auto) 4.0 L [place] % (Auto) 6.6 Eos % (Auto) 1.3 Baso % (Auto) 0.1 L Lymph # (Auto) 0.42 L [place] # (Auto) 0.7 H Eos # (Auto) 0.1 Baso # (Auto) 0.0 Abs Immat Gran (auto) 0.05 H Absolute Neuts (auto) 9.2 H Absolute Nucleated RBC 0.000 Nucleated RBC % 0.0 Sodium 133 L Potassium 4.8 Chloride 106 Carbon Dioxide 23 Anion Gap 4 BUN 26 H Creatinine 2.00 H Estim Creat Clear Calc 32 Estimated GFR 26 L Glucose 109 POC Capillary Glucose 116 H Calcium 7.7 L Total Bilirubin 0.8 AST 205 H ALT 299 H Alkaline Phosphatase 516 H Total Protein 7.0 Albumin 3.2 L Blood Type AB Positive Antibody Screen Negative Crossmatch See Detail 02/18/24 05:48 WBC RBC Hgb Hct MCV MCH MCHC RDW Plt Count MPV Immature Gran % (Auto) Neut % (Auto) Lymph % (Auto) [place] % (Auto) Eos % (Auto) Baso % (Auto) Lymph # (Auto) [place] # (Auto) Eos # (Auto) Baso # (Auto) Abs Immat Gran (auto) Absolute Neuts (auto) Absolute Nucleated RBC Nucleated RBC % Sodium Potassium Chloride Carbon Dioxide Anion Gap BUN Creatinine Estim Creat Clear Calc Estimated GFR Glucose POC Capillary Glucose 116 H Calcium Total Bilirubin AST ALT Alkaline Phosphatase Total Protein Albumin Blood Type Antibody Screen Crossmatch
[2024-02-18 12:20] LABS: Glucose Point of Care 78 mg/dl (65-105)
[2024-02-18 17:53] LABS: Glucose Point of Care 47 mg/dl (65-105)
[2024-02-18 17:59] LABS: Glucose Point of Care 81 mg/dl (65-105)
--- NOTE | 2024-02-18 18:44 | PC.NURSE ---
Initial evening blood sugar read as 47. A second blood sugar was then obtained from a different site and read 81.
[2024-02-19] VITALS (12 sets, daily range): BP systolic 108–126; BP diastolic 61–73; PULSE 71–92; RESP 12–16; TEMP 36.6–36.7; O2SAT 97–100
[2024-02-19 00:47] LABS: Glucose Point of Care 86 mg/dl (65-105)
[2024-02-19] MEDS: SODIUM CHLORIDE 0.9% IV 1,000 ML 100 ML IV CONT ×2 (01:55→18:29)
[2024-02-19 05:58] LABS: Basophils Percent Auto 0.5 % (0.2-1.2); Eosinophils Absolute Auto 0.5 K/mm3 (0-0.3); Hematocrit 31.6 % (37.0-47.0); Hemoglobin 9.6 g/dL (12.0-15.0); Immature Granulocyte Absolute 0.03 K/mm3 (0.00-0.031); Immature Granulocyte Percent A 0.4 % (0-0.5); Lymphocytes Absolute Auto 1.16 K/mm3 (0.9-3.2); Lymphocytes Percent Auto 13.7 % (18.3-44.2); Mean Corpuscular HGB Conc 30.4 g/dl (32-36); Mean Corpuscular Hemoglobin 26.7 pg (26-34); Mean Corpuscular Volume 87.8 fl (80-100); Mean Platelet Volume 12.3 fl (7.4-10.4); Monocytes Absolute Auto 0.6 K/mm3 (0.1-0.6); Monocytes Percent Auto 7.6 % (2.6-8.5); Neutrophils Absolute Auto 6.1 K/mm3 (1.3-6.7); Neutrophils Percent Auto 71.8 % (45.5-73.1); Platelet Count Result 209 k/mm3 (150-375); Red Cell Distribution Width 16.3 % (11.5-14.5); White Blood Count 8.4 K/mm3 (4.5-10.0)
[2024-02-19 06:06] LABS: Alanine Aminotransferase 187 U/L (6-35); Albumin Level 3.1 g/dL (3.5-5.1); Alkaline Phosphatase 469 U/L (38-126); Anion Gap 4 mmol/L (4-12); Aspartate Amino Transferase 59 U/L (14-36); Bilirubin,Total 0.7 mg/dL (0.2-1.3); Blood Urea Nitrogen 22 mg/dL (7-17); Calcium 8.1 mg/dL (8.4-10.2); Carbon Dioxide 22 mmol/L (22-30); Chloride 106 mmol/L (98-107); Estimated CRCL calculation 38 ml/min; Estimated Glomerular Filt Rate 32; Glucose 99 mg/dL (65-110); Potassium 4.4 mmol/L (3.4-5.0); Sodium 132 mmol/L (137-145)
[2024-02-19 06:12] LABS: Glucose Point of Care 97 mg/dl (65-105)
[2024-02-19] MEDS: MORPHINE SULFATE PCA (*CRX) 30 MG/30 ML SYR IV CONT ×3 (06:22→22:25)
[2024-02-19] MEDS: FERROUS SULFATE 325 MG TABLET DR BY MOUTH (08:32)
[2024-02-19] MEDS: FOLIC ACID 1 MG TABLET PO (08:33)
[2024-02-19] MEDS: ENOXAPARIN 40 MG/0.4 ML SYRINGE SUB-Q (08:33)
[2024-02-19] MEDS: PANTOPRAZOLE 40 MG TABLET PO (08:33)
--- NOTE | 2024-02-19 10:07 | PM.IMPN ---
Progress Note: A&P Assessment and Plan (1) Periumbilical hernia: Code(s): K42.9 - Umbilical hernia without obstruction or gangrene Status: Acute Assessment and Plan: History of a small-bowel obstruction in September of 2023 she reportedly had an exploratory laparotomy with small-bowel resection and ventral hernia repair with mesh. She states that the hernia they repaired was in the right upper quadrant and had not noticed a periumbilical bulge until a few days ago. Patient has a reducible umbilical hernia given edema patient may have some component of incarceration. - Abdomen/pelvis CT 09/30/23: An area of thickened bowel in the pelvis may indicate ischemia versus inflammatory changes or Crohn's disease. - Abdomen/pelvis CT: Moderate periumbilical hernia containing a loop of unobstructed small bowel, with surrounding edema/inflammatory change. - Diet: Heart healthy - Analgesics - IV hydration NS@ 100ml/hr. Creatinine 2.0 after surgery, improved today to 1.70. Continue IV fluids and hold Lasix today. - Surgery Repair Recurrent Incisional Hernia with Mesh on 02/17/24 dressing C/D/I. (2) Ovarian cyst: Code(s): N83.209 - Unspecified ovarian cyst, unspecified side Status: Acute Assessment and Plan: - Abdomen/pelvis CT: 3.5 cm simple appearing left ovarian cyst. Recommend nonemergent but timely follow-up pelvic ultrasound for further characterization. - Pelvic US: Bilateral septated cysts with internal echoes suggestive of hemorrhagic cysts. Follow-up advised. Status post hysterectomy. Otherwise, normal pelvic ultrasound. - Follow up outpatient (3) Anemia: Code(s): D64.9 - Anemia, unspecified Status: Chronic Assessment and Plan: Patient reports intermittent bloody stools. Prior CT scan in September when patient had bowel obstruction suggested possible min of inflammatory bowel disease or Crohn's disease. Patient's CT today does not mention this. Patient's dark stools could be due to her iron supplementation. Some of her diarrhea could also be due to withdrawal from recent meth use. - H/H 9.6/31.6 on am labs - fecal occult ordered. - continue iron supplementation - continue patient's home Protonix. - she could benefit from outpatient evaluation with colonoscopy. Consider GI consult pending fecal occult. (4) Diarrhea: Qualifiers: Diarrhea type: unspecified type Qualified Code(s): R19.7 - Diarrhea, unspecified Code(s): R19.7 - Diarrhea, unspecified Status: Acute Assessment and Plan: Patient reported on admission intermittent bloody stools. Prior CT scan in September when patient had bowel obstruction suggested possible min of inflammatory bowel disease or Crohn's disease. Patient's CT today does not mention this. Patient's dark stools could be due to her iron supplementation. Some of her diarrhea could also be due to withdrawal from recent meth use. - fecal occult ordered. - continue patient's home Protonix. - she could benefit from outpatient evaluation with colonoscopy. Consider GI consult pending fecal occult. - monitor vital signs, I&Os, track stool output, watch for bloody stools, neuro status and patient is a fall risk - monitor serum electrolytes and CBC (5) Transaminitis: Code(s): R74.01 - Elevation of levels of liver transaminase levels Status: Acute Assessment and Plan: LFTs on admission: tot bili WNL, AST 386, ALT 188, alk phos 177 - LFT's this AM: AST 59, ALT 187, alk phos 469. - Liver normal on abdomen/pelvis CT. Patient s/p cholecystectomy. - Hepatitis panel negative - Possibly meth induced, encouraged cessation - Monitor (6) Methamphetamine addiction: Code(s): F15.20 - Other stimulant dependence, uncomplicated Status: Acute Assessment and Plan: Last used a week ago. UDS +. Patient is interested in cessation. - Care coordination consulted for resources (7) Lymphedema of left lower extremity: Code(s): I89.0 - Lymphedema, not elsewhere classified Status: Acute Assessment and Plan: Patient has chronic lymphedema with chronic venous stasis changes. - maleate cream for lower extremities - venous dopplers negative - Patient reports that she uses lymphatic bandages at home. (8) Hypertension: Qualifiers: Hypertension type: unspecified Qualified Code(s): I10 - Essential (primary) hypertension Code(s): I10 - Essential (primary) hypertension Status: Inactive Assessment and Plan: Chronic, currently holding home medications as patients BP has been stable despite being off of them. - patient hypertensive, will resume home medications - amlodipine 5 mg daily and lasix 40 mg daily - Blood pressure 119/63 - monitor Subjective Date/time seen: 02/19/24 10:07 Interval history: Patient denies pain at present. Patient reports eating breakfast and drinking well. Patient denies shortness of breath, nausea, vomiting, headache, or dizziness. Review of Systems Review of Systems: All systems reviewed & are unremarkable except as noted in HPI and below Exam Const: General: comfortable and no acute distress Resp: Effort & Inspection: normal respiratory effort Auscultation: clear to auscultation bilaterally Cardio: Rate: regular rate Rhythm: regular rhythm GI: Other: GI Palp: Yes Tenderness to palpation present (GI) (surgical area) Other: hypoactive bowel sounds. Large abdominal dressing with ABD's in place. Dressing C/D/I. Urinary Catheter: Urinary Catheter: patent and draining and other (valencia color urine) Skin: Other: Large abdominal dressing with ABD's in place. Dry skin to bilateral lower extremities. Dressing C/D/I. Neuro: Speech: normal speech Extrem: Other: 2+ LLE lymphedema with scab in center of [place]. Psych: Mental Status: mental status grossly normal Affect: normal affect Objective Data Vital Signs Vital Signs: Vital Signs - 24 hr 02/18/24 11:00 02/18/24 13:19 02/18/24 13:30 Temperature 98.7 F 98.7 F Pulse Rate 77 72 73 Respiratory Rate 12 13 14 Blood Pressure 118/66 109/55 L Pulse Oximetry 100 100 100 Oxygen Delivery Nasal Cannula Oxygen Flow Rate 2 Fraction of Inspired Oxygen 02/18/24 14:21 02/18/24 15:08 02/18/24 15:45 Temperature Pulse Rate 70 Respiratory Rate 9 L 11 L Blood Pressure Pulse Oximetry 100 99 100 Oxygen Delivery Nasal Cannula Nasal Cannula Oxygen Flow Rate 2 2 Fraction of Inspired Oxygen 28 02/18/24 17:00 02/18/24 17:38 02/18/24 17:38 Temperature Pulse Rate 83 Respiratory Rate 12 13 13 Blood Pressure 139/55 L Pulse Oximetry 100 100 100 Oxygen Delivery Nasal Cannula Oxygen Flow Rate 2 Fraction of Inspired Oxygen 02/18/24 17:00 02/18/24 21:14 02/18/24 20:52 Temperature 97.6 F 97.7 F Pulse Rate 75 Respiratory Rate 16 Blood Pressure 110/62 Pulse Oximetry 95 95 Oxygen Delivery Nasal Cannula Oxygen Flow Rate 2 Fraction of Inspired Oxygen 02/19/24 00:19 02/18/24 20:10 02/19/24 06:15 Temperature 98.1 F 97.8 F Pulse Rate 78 81 Respiratory Rate 12 16 Blood Pressure 111/65 126/73 Pulse Oximetry 100 98 98 Oxygen Delivery Nasal Cannula Oxygen Flow Rate 2 Fraction of Inspired Oxygen 28 02/19/24 06:22 02/19/24 08:40 02/19/24 09:55 Temperature 98.1 F Pulse Rate 92 71 Respiratory Rate 16 15 16 Blood Pressure 119/63 Pulse Oximetry 100 100 100 Oxygen Delivery Nasal Cannula Oxygen Flow Rate 2 Fraction of Inspired Oxygen 28 Intake/Output Intake/Output: Intake & Output 02/16/24 02/17/24 02/18/24 02/19/24 23:59 23:59 23:59 23:59 Intake Total 4200 1101.7 2980 1430 Output Total 170 1185 890 Balance 4200 931.7 1795 540 Meds/Results Medications: Active Medications Generic Name Dose Route Start Last Admin Trade Name Freq PRN Reason Stop Dose Admin Amlodipine Besylate 5 mg 02/14/24 09:00 02/18/24 10:08 Amlodipine Besylate 5 Mg Tablet PO Not Given DAILY YESENIA Dextrose 12.5 gm 02/13/24 01:22 Dextrose 50% 25 Gm/50 Ml Syringe IV PUSH PRN PRN Hypoglycemia Protocol Enoxaparin Sodium 40 mg 02/18/24 09:00 02/19/24 08:33 Enoxaparin 40 Mg/0.4 Ml Syringe SUB-Q 40 mg DAILY YESENIA Administration Ferrous Sulfate 325 mg 02/13/24 09:00 02/19/24 08:32 Ferrous Sulfate [address] BY MOUTH 325 mg DAILY YESENIA Administration Folic Acid 1 mg 02/13/24 09:00 02/19/24 08:33 Folic Acid 1 Mg Tablet PO 1 mg DAILY YESENIA Administration Furosemide 40 mg 02/14/24 09:00 02/18/24 10:08 Furosemide 40 Mg Tablet PO Not Given DAILY YESENIA Glucagon 1 mg 02/13/24 01:22 Glucagon For Inj 1 Mg Vial IM PRN PRN Hypoglycemia Protocol Glucose 15 gm 02/13/24 01:22 Glucose Oral Gel 15 Gm Of Glucse In 37.5 Gm Tube PO PRN PRN Hypoglycemia Protocol Dextrose 1,000 mls @ 100 mls/hr 02/13/24 01:22 Dextrose 5% 1,000 Ml IVPB PRN PRN Hypoglycemia Protocol Morphine Sulfate 30 mg in 30 mls @ 0 mls/hr 02/17/24 17:56 02/19/24 06:22 Morphine Sulfate Optical Instrument Inspector IV CONT 0 mg/hr PRN PRN 0 mls/hr STAFF RADIATION THERAPIST Management Administration Protocol 0 MG/HR Sodium Chloride 1,000 mls @ 100 mls/hr 02/17/24 17:56 02/19/24 01:55 Normal Saline Iv IV CONT 100 mls/hr .Q10H YESENIA Administration Morphine Sulfate 15 mg 02/15/24 10:11 02/17/24 04:17 Morphine Sulfate (*Crx) 15 Mg Tab Ir PO 15 mg Q6H PRN Administration Pain Rated 4-6 Naloxone HCl 0.1 mg 02/17/24 17:56 Naloxone Hcl 0.4 Mg/Ml Vial IV PUSH Q2M PRN Opiate Reversal Pantoprazole Sodium 40 mg 02/13/24 09:00 02/19/24 08:33 Pantoprazole 40 Mg Tablet PO 40 mg DAILY YESENIA Administration Radiology Results: ITS Impressions Transvaginal US 02/13/24 15:11 IMPRESSION: Bilateral septated cysts with internal echoes suggestive of hemorrhagic cysts. Follow-up advised. Status post hysterectomy. Otherwise, normal pelvic ultrasound. Venous Doppler Study 02/14/24 14:47 IMPRESSION: 1. No deep venous thrombosis in the left lower limb. 2. Small left Arreaga's cyst. Labs Labs: Laboratory Results - last 24 hr 02/18/24 02/18/24 02/18/24 12:17 17:51 17:57 WBC RBC Hgb Hct MCV MCH MCHC RDW Plt Count MPV Immature Gran % (Auto) Neut % (Auto) Lymph % (Auto) [place] % (Auto) Eos % (Auto) Baso % (Auto) Lymph # (Auto) [place] # (Auto) Eos # (Auto) Baso # (Auto) Abs Immat Gran (auto) Absolute Neuts (auto) Absolute Nucleated RBC Nucleated RBC % Sodium Potassium Chloride Carbon Dioxide Anion Gap BUN Creatinine Estim Creat Clear Calc Estimated GFR Glucose POC Capillary Glucose 78 47 L* 81 Calcium Total Bilirubin AST ALT Alkaline Phosphatase Total Protein Albumin 02/19/24 02/19/24 02/19/24 00:22 05:17 06:03 WBC 8.4 RBC 3.60 L Hgb 9.6 L Hct 31.6 L MCV 87.8 MCH 26.7 MCHC 30.4 L RDW 16.3 H Plt Count 209 MPV 12.3 H Immature Gran % (Auto) 0.4 Neut % (Auto) 71.8 Lymph % (Auto) 13.7 L [place] % (Auto) 7.6 Eos % (Auto) 6.0 H Baso % (Auto) 0.5 Lymph # (Auto) 1.16 [place] # (Auto) 0.6 Eos # (Auto) 0.5 H Baso # (Auto) 0.0 Abs Immat Gran (auto) 0.03 Absolute Neuts (auto) 6.1 Absolute Nucleated RBC 0.000 Nucleated RBC % 0.0 Sodium 132 L Potassium 4.4 Chloride 106 Carbon Dioxide 22 Anion Gap 4 BUN 22 H Creatinine 1.70 H Estim Creat Clear Calc 38 Estimated GFR 32 L Glucose 99 POC Capillary Glucose 86 97 Calcium 8.1 L Total Bilirubin 0.7 AST 59 H ALT 187 H Alkaline Phosphatase 469 H Total Protein 7.0 Albumin 3.1 L Quality VTE Prophylaxis VTE prophylaxis: mechanical ordered
[2024-02-19 11:49] LABS: Glucose Point of Care 73 mg/dl (65-105)
[2024-02-19] MEDS: amLODIPine BESYLATE 5 MG TABLET PO (12:08)
--- NOTE | 2024-02-19 15:02 | P.PNGS_ITS ---
Progress Note: A&P Assessment and Plan (1) Recurrent incisional hernia with incarceration: Code(s): K43.0 - Incisional hernia with obstruction, without gangrene Status: Acute Assessment and Plan: * Dodge out today * Increase activity * Will start transitioning from ENTRY LEVEL STAFF ACCOUNTANT to oral pain meds in next day or so. (2) Methamphetamine addiction: Code(s): F15.20 - Other stimulant dependence, uncomplicated Status: Acute Subjective Subjective Date/Time Seen: 02/19/24 15:02 Interval history: Tolerating diet. Pain controlled with ENTRY LEVEL STAFF ACCOUNTANT. Not ambulating much yet. Dodge still in place. Exam GI: Inspection: non-distended, incision (clean/dry/intact) and other (JUWAN serosanguinous) GI Palp: Yes Soft to palpation and Yes Tenderness to palpation present (GI) (incisional) Auscultation: Hypoactive bowel sounds present Objective Data Vital Signs Vital Signs: Vital Signs - 24 hr 02/18/24 15:08 02/18/24 15:45 02/18/24 17:00 Temperature Pulse Rate 70 83 Respiratory Rate 11 L 12 Blood Pressure 139/55 L Pulse Oximetry 99 100 100 Oxygen Delivery Nasal Cannula Nasal Cannula Oxygen Flow Rate 2 2 Fraction of Inspired Oxygen 02/18/24 17:38 02/18/24 17:38 02/18/24 17:00 Temperature 97.6 F Pulse Rate Respiratory Rate 13 13 Blood Pressure Pulse Oximetry 100 100 Oxygen Delivery Nasal Cannula Oxygen Flow Rate 2 Fraction of Inspired Oxygen 02/18/24 21:14 02/18/24 20:52 02/19/24 00:19 Temperature 97.7 F 98.1 F Pulse Rate 75 78 Respiratory Rate 16 12 Blood Pressure 110/62 111/65 Pulse Oximetry 95 95 100 Oxygen Delivery Nasal Cannula Oxygen Flow Rate 2 Fraction of Inspired Oxygen 02/18/24 20:10 02/19/24 06:15 02/19/24 06:22 Temperature 97.8 F Pulse Rate 81 Respiratory Rate 16 16 Blood Pressure 126/73 Pulse Oximetry 98 98 100 Oxygen Delivery Nasal Cannula Oxygen Flow Rate 2 Fraction of Inspired Oxygen 02/19/24 08:40 02/19/24 09:55 02/19/24 08:30 Temperature 98.1 F Pulse Rate 92 71 Respiratory Rate 15 16 15 Blood Pressure 119/63 Pulse Oximetry 100 100 100 Oxygen Delivery Nasal Cannula Nasal Cannula Oxygen Flow Rate 2 2 Fraction of Inspired Oxygen 28 02/19/24 12:54 Temperature Pulse Rate Respiratory Rate 12 Blood Pressure Pulse Oximetry 100 Oxygen Delivery Room Air Oxygen Flow Rate Fraction of Inspired Oxygen Intake/Output Intake/Output: Intake & Output 02/16/24 02/17/24 02/18/24 02/19/24 23:59 23:59 23:59 23:59 Intake Total 4200 1101.7 2980 1670 Output Total 170 1185 1665 Balance 4200 931.7 1795 5 Meds/Results Medications: Active Medications Generic Name Dose Route Start Last Admin Trade Name Freq PRN Reason Stop Dose Admin Amlodipine Besylate 5 mg 02/14/24 09:00 02/19/24 12:08 Amlodipine Besylate 5 Mg Tablet PO 5 mg DAILY YESENIA Administration Dextrose 12.5 gm 02/13/24 01:22 Dextrose 50% 25 Gm/50 Ml Syringe IV PUSH PRN PRN Hypoglycemia Protocol Enoxaparin Sodium 40 mg 02/18/24 09:00 02/19/24 08:33 Enoxaparin 40 Mg/0.4 Ml Syringe SUB-Q 40 mg DAILY YESENIA Administration Ferrous Sulfate 325 mg 02/13/24 09:00 02/19/24 08:32 Ferrous Sulfate [address] BY MOUTH 325 mg DAILY YESENIA Administration Folic Acid 1 mg 02/13/24 09:00 02/19/24 08:33 Folic Acid 1 Mg Tablet PO 1 mg DAILY YESENIA Administration Furosemide 40 mg 02/14/24 09:00 02/19/24 12:08 Furosemide 40 Mg Tablet PO Not Given DAILY YESENIA Glucagon 1 mg 02/13/24 01:22 Glucagon For Inj 1 Mg Vial IM PRN PRN Hypoglycemia Protocol Glucose 15 gm 02/13/24 01:22 Glucose Oral Gel 15 Gm Of Glucse In 37.5 Gm Tube PO PRN PRN Hypoglycemia Protocol Dextrose 1,000 mls @ 100 mls/hr 02/13/24 01:22 Dextrose 5% 1,000 Ml IVPB PRN PRN Hypoglycemia Protocol Morphine Sulfate 30 mg in 30 mls @ 0 mls/hr 02/17/24 17:56 02/19/24 06:22 Morphine Sulfate Media Relations Manager IV CONT 0 mg/hr PRN PRN 0 mls/hr ENTRY LEVEL STAFF ACCOUNTANT Management Administration Protocol 0 MG/HR Sodium Chloride 1,000 mls @ 100 mls/hr 02/17/24 17:56 02/19/24 01:55 Normal Saline Iv IV CONT 100 mls/hr .Q10H YESENIA Administration Morphine Sulfate 15 mg 02/15/24 10:11 02/17/24 04:17 Morphine Sulfate (*Crx) 15 Mg Tab Ir PO 15 mg Q6H PRN Administration Pain Rated 4-6 Naloxone HCl 0.1 mg 02/17/24 17:56 Naloxone Hcl 0.4 Mg/Ml Vial IV PUSH Q2M PRN Opiate Reversal Pantoprazole Sodium 40 mg 02/13/24 09:00 02/19/24 08:33 Pantoprazole 40 Mg Tablet PO 40 mg DAILY YESENIA Administration Radiology Results: ITS Impressions Transvaginal US 02/13/24 15:11 IMPRESSION: Bilateral septated cysts with internal echoes suggestive of hemorrhagic cysts. Follow-up advised. Status post hysterectomy. Otherwise, normal pelvic ultrasound. Venous Doppler Study 02/14/24 14:47 IMPRESSION: 1. No deep venous thrombosis in the left lower limb. 2. Small left Arreaga's cyst. Labs Labs: Laboratory Results - last 24 hr 02/18/24 02/18/24 02/19/24 17:51 17:57 00:22 WBC RBC Hgb Hct MCV MCH MCHC RDW Plt Count MPV Immature Gran % (Auto) Neut % (Auto) Lymph % (Auto) [place] % (Auto) Eos % (Auto) Baso % (Auto) Lymph # (Auto) [place] # (Auto) Eos # (Auto) Baso # (Auto) Abs Immat Gran (auto) Absolute Neuts (auto) Absolute Nucleated RBC Nucleated RBC % Sodium Potassium Chloride Carbon Dioxide Anion Gap BUN Creatinine Estim Creat Clear Calc Estimated GFR Glucose POC Capillary Glucose 47 L* 81 86 Calcium Total Bilirubin AST ALT Alkaline Phosphatase Total Protein Albumin 02/19/24 02/19/24 02/19/24 05:17 06:03 11:42 WBC 8.4 RBC 3.60 L Hgb 9.6 L Hct 31.6 L MCV 87.8 MCH 26.7 MCHC 30.4 L RDW 16.3 H Plt Count 209 MPV 12.3 H Immature Gran % (Auto) 0.4 Neut % (Auto) 71.8 Lymph % (Auto) 13.7 L [place] % (Auto) 7.6 Eos % (Auto) 6.0 H Baso % (Auto) 0.5 Lymph # (Auto) 1.16 [place] # (Auto) 0.6 Eos # (Auto) 0.5 H Baso # (Auto) 0.0 Abs Immat Gran (auto) 0.03 Absolute Neuts (auto) 6.1 Absolute Nucleated RBC 0.000 Nucleated RBC % 0.0 Sodium 132 L Potassium 4.4 Chloride 106 Carbon Dioxide 22 Anion Gap 4 BUN 22 H Creatinine 1.70 H Estim Creat Clear Calc 38 Estimated GFR 32 L Glucose 99 POC Capillary Glucose 97 73 Calcium 8.1 L Total Bilirubin 0.7 AST 59 H ALT 187 H Alkaline Phosphatase 469 H Total Protein 7.0 Albumin 3.1 L
[2024-02-19 17:44] LABS: Glucose Point of Care 136 mg/dl (65-105)
[2024-02-19 23:53] LABS: Glucose Point of Care 104 mg/dl (65-105)
[2024-02-20] MEDS: SODIUM CHLORIDE 0.9% IV 1,000 ML 100 ML IV CONT (04:32)
[2024-02-20] MEDS: ONDANSETRON INJ 4 MG/2 ML VIAL IV PUSH (04:45)
[2024-02-20 06:06] LABS: Basophils Percent Auto 0.2 % (0.2-1.2); Eosinophils Absolute Auto 0.5 K/mm3 (0-0.3); Eosinophils Percent Auto 6.2 % (0-4.4); Hematocrit 32.5 % (37.0-47.0); Hemoglobin 9.9 g/dL (12.0-15.0); Immature Granulocyte Absolute 0.05 K/mm3 (0.00-0.031); Immature Granulocyte Percent A 0.6 % (0-0.5); Lymphocytes Absolute Auto 0.92 K/mm3 (0.9-3.2); Mean Corpuscular HGB Conc 30.5 g/dl (32-36); Mean Corpuscular Hemoglobin 26.3 pg (26-34); Mean Corpuscular Volume 86.4 fl (80-100); Mean Platelet Volume 12.4 fl (7.4-10.4); Monocytes Absolute Auto 0.7 K/mm3 (0.1-0.6); Monocytes Percent Auto 8.5 % (2.6-8.5); Neutrophils Absolute Auto 6.1 K/mm3 (1.3-6.7); Neutrophils Percent Auto 73.5 % (45.5-73.1); Platelet Count Result 245 k/mm3 (150-375); Red Blood Count 3.76 M/mm3 (4.2-5.4); Red Cell Distribution Width 16.1 % (11.5-14.5); White Blood Count 8.4 K/mm3 (4.5-10.0)
[2024-02-20 06:15] VITALS: BP 154/75; PULSE 73; RESP 18; TEMP 36.8; O2SAT 97
[2024-02-20 06:17] LABS: Alanine Aminotransferase 118 U/L (6-35); Albumin Level 3.2 g/dL (3.5-5.1); Alkaline Phosphatase 379 U/L (38-126); Anion Gap 6 mmol/L (4-12); Aspartate Amino Transferase 27 U/L (14-36); Bilirubin,Total 0.8 mg/dL (0.2-1.3); Blood Urea Nitrogen 16 mg/dL (7-17); Calcium 8.5 mg/dL (8.4-10.2); Carbon Dioxide 23 mmol/L (22-30); Chloride 106 mmol/L (98-107); Estimated CRCL calculation 49 ml/min; Estimated Glomerular Filt Rate 44; Glucose 107 mg/dL (65-110); Sodium 135 mmol/L (137-145)
[2024-02-20 06:32] LABS: Glucose Point of Care 110 mg/dl (65-105)
[2024-02-20] MEDS: FOLIC ACID 1 MG TABLET PO (09:22)
[2024-02-20] MEDS: PANTOPRAZOLE 40 MG TABLET PO (09:22)
[2024-02-20] MEDS: ENOXAPARIN 40 MG/0.4 ML SYRINGE SUB-Q (09:23)
[2024-02-20] MEDS: FERROUS SULFATE 325 MG TABLET DR BY MOUTH (09:23)
[2024-02-20] MEDS: FUROSEMIDE 40 MG TABLET PO (09:23)
[2024-02-20] MEDS: amLODIPine BESYLATE 5 MG TABLET PO (09:23)
--- NOTE | 2024-02-20 10:31 | P.PNIM_ITS ---
Progress Note: A&P Assessment and Plan (1) Periumbilical hernia: Code(s): K42.9 - Umbilical hernia without obstruction or gangrene Status: Acute Assessment and Plan: History of a small-bowel obstruction in September of 2023 she reportedly had an exploratory laparotomy with small-bowel resection and ventral hernia repair with mesh. She states that the hernia they repaired was in the right upper quadrant and had not noticed a periumbilical bulge until a few days ago. Patient has a reducible umbilical hernia given edema patient may have some component of incarceration. - Abdomen/pelvis CT 09/30/23: An area of thickened bowel in the pelvis may indicate ischemia versus inflammatory changes or Crohn's disease. - Abdomen/pelvis CT: Moderate periumbilical hernia containing a loop of unobstructed small bowel, with surrounding edema/inflammatory change. - Diet: Heart healthy - Analgesics - IV hydration NS@ 100ml/hr. Creatinine 2.0 after surgery, improved today to 1.30. - Surgery Repair Recurrent Incisional Hernia with Mesh on 02/17/24 dressing C/D/I. - BC no growth (2) Ovarian cyst: Code(s): N83.209 - Unspecified ovarian cyst, unspecified side Status: Acute Assessment and Plan: - Abdomen/pelvis CT: 3.5 cm simple appearing left ovarian cyst. Recommend nonemergent but timely follow-up pelvic ultrasound for further characterization. - Pelvic US: Bilateral septated cysts with internal echoes suggestive of hemorrhagic cysts. Follow-up advised. Status post hysterectomy. Otherwise, normal pelvic ultrasound. - Follow up outpatient (3) Anemia: Code(s): D64.9 - Anemia, unspecified Status: Chronic Assessment and Plan: Patient reports intermittent bloody stools. Prior CT scan in September when patient had bowel obstruction suggested possible min of inflammatory bowel disease or Crohn's disease. Patient's CT today does not mention this. Patient's dark stools could be due to her iron supplementation. Some of her diarrhea could also be due to withdrawal from recent meth use. - H/H 9.9/32.5 on am labs - fecal occult ordered. - continue iron supplementation - continue patient's home Protonix. - she could benefit from outpatient evaluation with colonoscopy. Consider GI consult pending fecal occult. (4) Diarrhea: Qualifiers: Diarrhea type: unspecified type Qualified Code(s): R19.7 - Diarrhea, unspecified Code(s): R19.7 - Diarrhea, unspecified Status: Acute Assessment and Plan: Patient reported on admission intermittent bloody stools. Prior CT scan in September when patient had bowel obstruction suggested possible min of inflammatory bowel disease or Crohn's disease. Patient's CT today does not mention this. Patient's dark stools could be due to her iron supplementation. Some of her diarrhea could also be due to withdrawal from recent meth use. - fecal occult ordered. - continue patient's home Protonix. - she could benefit from outpatient evaluation with colonoscopy. Consider GI consult pending fecal occult. - monitor vital signs, I&Os, track stool output, watch for bloody stools, neuro status and patient is a fall risk - monitor serum electrolytes and CBC (5) Transaminitis: Code(s): R74.01 - Elevation of levels of liver transaminase levels Status: Acute Assessment and Plan: LFTs on admission: tot bili WNL, AST 386, ALT 188, alk phos 177 - LFT's this AM: AST 27, ALT 118, alk phos 379. - Liver normal on abdomen/pelvis CT. Patient s/p cholecystectomy. - Hepatitis panel negative - Possibly meth induced, encouraged cessation - Monitor (6) Methamphetamine addiction: Code(s): F15.20 - Other stimulant dependence, uncomplicated Status: Acute Assessment and Plan: Last used a week ago. UDS +. Patient is interested in cessation. - Care coordination consulted for resources (7) Hypertension: Qualifiers: Hypertension type: unspecified Qualified Code(s): I10 - Essential (primary) hypertension Code(s): I10 - Essential (primary) hypertension Status: Chronic Assessment and Plan: Chronic, currently holding home medications as patients BP has been stable despite being off of them. - patient hypertensive, will resume home medications - amlodipine 5 mg daily and lasix 40 mg daily - Blood pressure 154/75 - monitor (8) Lymphedema of left lower extremity: Code(s): I89.0 - Lymphedema, not elsewhere classified Status: Acute Assessment and Plan: Patient has chronic lymphedema with chronic venous stasis changes. - maleate cream for lower extremities - venous dopplers negative - Patient reports that she uses lymphatic bandages at home. Subjective Date/time seen: 02/20/24 10:31 Interval history: Patient reports abdomen pain is a 3 , constant, and aching. Patient denies shortness of breath, nausea, vomiting, headache, or dizziness. Patient reports drinking well but not eating alot. Review of Systems Review of Systems: All systems reviewed & are unremarkable except as noted in HPI and below Exam Const: General: no acute distress and uncomfortable Resp: Effort & Inspection: normal respiratory effort Auscultation: clear to auscultation bilaterally Cardio: Rate: regular rate Rhythm: regular rhythm GI: GI Palp: Yes Soft to palpation and Yes Tenderness to palpation present (GI) Other: hypoactive bowel sounds. Abdominal binder in place. Extrem: Other: Trace RLE edema. 2-3+ LLE lymphedema with scab in center [facility]. Psych: Mental Status: mental status grossly normal Affect: normal affect Objective Data Vital Signs Vital Signs: Vital Signs - 24 hr 02/19/24 12:54 02/19/24 15:04 02/19/24 15:04 Temperature Pulse Rate Respiratory Rate 12 15 15 Blood Pressure Pulse Oximetry 100 100 100 Oxygen Delivery Room Air Fraction of Inspired Oxygen 02/19/24 14:51 02/19/24 16:45 02/19/24 22:25 Temperature 98.0 F Pulse Rate 71 Respiratory Rate 15 15 14 Blood Pressure 108/61 Pulse Oximetry 98 100 98 Oxygen Delivery Room Air Fraction of Inspired Oxygen 02/19/24 22:25 02/19/24 20:35 02/20/24 06:15 Temperature 98.3 F Pulse Rate 73 Respiratory Rate 14 18 Blood Pressure 154/75 H Pulse Oximetry 97 97 97 Oxygen Delivery Room Air Fraction of Inspired Oxygen 28 02/20/24 09:20 Temperature Pulse Rate Respiratory Rate Blood Pressure Pulse Oximetry Oxygen Delivery Room Air Fraction of Inspired Oxygen Intake/Output Intake/Output: Intake & Output 02/17/24 02/18/24 02/19/24 02/20/24 23:59 23:59 23:59 23:59 Intake Total 1101.7 2980 3130 1000 Output Total 170 1185 2005 Balance 931.7 1795 1125 1000 Meds/Results Medications: Active Medications Generic Name Dose Route Start Last Admin Trade Name Freq PRN Reason Stop Dose Admin Amlodipine Besylate 5 mg 02/14/24 09:00 02/20/24 09:23 Amlodipine Besylate 5 Mg Tablet PO 5 mg DAILY YESENIA Administration Dextrose 12.5 gm 02/13/24 01:22 Dextrose 50% 25 Gm/50 Ml Syringe IV PUSH PRN PRN Hypoglycemia Protocol Enoxaparin Sodium 40 mg 02/18/24 09:00 02/20/24 09:23 Enoxaparin 40 Mg/0.4 Ml Syringe SUB-Q 40 mg DAILY YESENIA Administration Ferrous Sulfate 325 mg 02/13/24 09:00 02/20/24 09:23 Ferrous Sulfate [address] BY MOUTH 325 mg DAILY YESENIA Administration Folic Acid 1 mg 02/13/24 09:00 02/20/24 09:22 Folic Acid 1 Mg Tablet PO 1 mg DAILY YESENIA Administration Furosemide 40 mg 02/14/24 09:00 02/20/24 09:23 Furosemide 40 Mg Tablet PO 40 mg DAILY YESENIA Administration Glucagon 1 mg 02/13/24 01:22 Glucagon For Inj 1 Mg Vial IM PRN PRN Hypoglycemia Protocol Glucose 15 gm 02/13/24 01:22 Glucose Oral Gel 15 Gm Of Glucse In 37.5 Gm Tube PO PRN PRN Hypoglycemia Protocol Dextrose 1,000 mls @ 100 mls/hr 02/13/24 01:22 Dextrose 5% 1,000 Ml IVPB PRN PRN Hypoglycemia Protocol Morphine Sulfate 30 mg in 30 mls @ 0 mls/hr 02/17/24 17:56 02/19/24 22:25 Morphine Sulfate Immigration Consultant IV CONT 0 mg/hr PRN PRN 0 mls/hr JUNIOR LEGAL SECRETARY Management Administration Protocol 0 MG/HR Sodium Chloride 1,000 mls @ 100 mls/hr 02/17/24 17:56 02/20/24 04:32 Normal Saline Iv IV CONT 100 mls/hr .Q10H YESENIA Administration Morphine Sulfate 15 mg 02/15/24 10:11 02/17/24 04:17 Morphine Sulfate (*Crx) 15 Mg Tab Ir PO 15 mg Q6H PRN Administration Pain Rated 4-6 Naloxone HCl 0.1 mg 02/17/24 17:56 Naloxone Hcl 0.4 Mg/Ml Vial IV PUSH Q2M PRN Opiate Reversal Pantoprazole Sodium 40 mg 02/13/24 09:00 02/20/24 09:22 Pantoprazole 40 Mg Tablet PO 40 mg DAILY YESENIA Administration Radiology Results: ITS Impressions Transvaginal US 02/13/24 15:11 IMPRESSION: Bilateral septated cysts with internal echoes suggestive of hemorrhagic cysts. Follow-up advised. Status post hysterectomy. Otherwise, normal pelvic ultrasound. Venous Doppler Study 02/14/24 14:47 IMPRESSION: 1. No deep venous thrombosis in the left lower limb. 2. Small left Arreaga's cyst. Labs Labs: Laboratory Results - last 24 hr 02/16/24 02/19/24 02/19/24 16:37 11:42 17:40 WBC RBC Hgb Hct MCV MCH MCHC RDW Plt Count MPV Immature Gran % (Auto) Neut % (Auto) Lymph % (Auto) [place] % (Auto) Eos % (Auto) Baso % (Auto) Lymph # (Auto) [place] # (Auto) Eos # (Auto) Baso # (Auto) Abs Immat Gran (auto) Absolute Neuts (auto) Absolute Nucleated RBC Nucleated RBC % Sodium Potassium Chloride Carbon Dioxide Anion Gap BUN Creatinine Estim Creat Clear Calc Estimated GFR Glucose POC Capillary Glucose 73 136 H Calcium Total Bilirubin AST ALT Alkaline Phosphatase Total Protein Albumin Crossmatch See Detail 02/19/24 02/20/24 02/20/24 23:51 04:40 06:29 WBC 8.4 RBC 3.76 L Hgb 9.9 L Hct 32.5 L MCV 86.4 MCH 26.3 MCHC 30.5 L RDW 16.1 H Plt Count 245 MPV 12.4 H Immature Gran % (Auto) 0.6 H Neut % (Auto) 73.5 H Lymph % (Auto) 11.0 L [place] % (Auto) 8.5 Eos % (Auto) 6.2 H Baso % (Auto) 0.2 Lymph # (Auto) 0.92 [place] # (Auto) 0.7 H Eos # (Auto) 0.5 H Baso # (Auto) 0.0 Abs Immat Gran (auto) 0.05 H Absolute Neuts (auto) 6.1 Absolute Nucleated RBC 0.000 Nucleated RBC % 0.0 Sodium 135 L Potassium 4.0 Chloride 106 Carbon Dioxide 23 Anion Gap 6 BUN 16 Creatinine 1.30 H Estim Creat Clear Calc 49 Estimated GFR 44 L Glucose 107 POC Capillary Glucose 104 110 H Calcium 8.5 Total Bilirubin 0.8 AST 27 ALT 118 H Alkaline Phosphatase 379 H Total Protein 7.0 Albumin 3.2 L Crossmatch Quality VTE Prophylaxis VTE prophylaxis: mechanical ordered
--- NOTE | 2024-02-20 11:38 | P.PNGS_ITS ---
Progress Note: A&P Assessment and Plan (1) Recurrent incisional hernia with incarceration: Code(s): K43.0 - Incisional hernia with obstruction, without gangrene Status: Acute Assessment and Plan: * Patient is tolerating a regular diet. Will start Miralax daily and Senokot S QHS. * Postoperative pain seems controlled. Her REMOTE RUBY ON RAILS DEVELOPER is ordered with no basal rate and only PRN bolus doses. Will decrease the bolus dose and increase the interval between doses. Hopefully we can stop the REMOTE RUBY ON RAILS DEVELOPER and transition to oral pain medication in the next day or two. * Encouraged increasing activity, ambulating at least 2-3 times daily and getting up to the chair during the day. (2) Chronic kidney disease: Code(s): N18.9 - Chronic kidney disease, unspecified Status: Acute Assessment and Plan: * Creatinine bumped up to 2.0 postop day1 and has been trending down over the weekend. Creatinine is down to 1.3 today, which is closer to her baseline. Continue to trend labs. Decrease IV fluids as oral intake improves. (3) Methamphetamine addiction: Code(s): F15.20 - Other stimulant dependence, uncomplicated Status: Acute Plan I have discussed the patient's case and plan of care with Dr. Quigley. Subjective Subjective Date/Time Seen: 02/20/24 11:38 Post Op day: 3 (Repair incarcerated incisional hernia with mesh, bilateral myofascial flap advancement, 6 cm on the right, 3 cm on the left) Patient reports: tolerating a regular diet, voiding w/o difficulty (s/p benton removal), flatus and no bowel movement Interval history: Patient is feeling tired this morning. She is still having postoperative abdominal pain that is being controlled with the REMOTE RUBY ON RAILS DEVELOPER. Basal rate was stopped yesterday and she is now getting 2mg IV doses up to every 15 minutes on the REMOTE RUBY ON RAILS DEVELOPER. She reports being up in the chair for almost the entire day yesterday and also an hour or more this morning. She is passing flatus but no BM since surgery. Tolerating a regular diet without any nausea or vomiting. She didn't eat much yesterday but has more of an appetite today. Exam Const: General: comfortable and no acute distress Orientation/consciousness: patient oriented x3 GI: Inspection: non-distended and incision (dry and healing well, no erythema) GI Palp: Yes Soft to palpation and Yes Tenderness to palpation present (GI) Auscultation: Hypoactive bowel sounds present Extrem: Other: Left lower extremity lymphedema, unchanged. Minimal swelling to RLE that is unchanged. No erythema, no calf tenderness. Objective Data Vital Signs Vital Signs: Vital Signs - 24 hr 02/19/24 12:54 02/19/24 15:04 02/19/24 15:04 Temperature Pulse Rate Respiratory Rate 12 15 15 Blood Pressure Pulse Oximetry 100 100 100 Oxygen Delivery Room Air Fraction of Inspired Oxygen 02/19/24 14:51 02/19/24 16:45 02/19/24 22:25 Temperature 98.0 F Pulse Rate 71 Respiratory Rate 15 15 14 Blood Pressure 108/61 Pulse Oximetry 98 100 98 Oxygen Delivery Room Air Fraction of Inspired Oxygen 02/19/24 22:25 02/19/24 20:35 02/20/24 06:15 Temperature 98.3 F Pulse Rate 73 Respiratory Rate 14 18 Blood Pressure 154/75 H Pulse Oximetry 97 97 97 Oxygen Delivery Room Air Fraction of Inspired Oxygen 28 02/20/24 09:20 Temperature Pulse Rate Respiratory Rate Blood Pressure Pulse Oximetry Oxygen Delivery Room Air Fraction of Inspired Oxygen Intake/Output Intake/Output: Intake & Output 02/17/24 02/18/24 02/19/24 02/20/24 23:59 23:59 23:59 23:59 Intake Total 1101.7 2980 3130 1240 Output Total 170 1185 2005 Balance 931.7 1795 1125 1240 Meds/Results Medications: Active Medications Generic Name Dose Route Start Last Admin Trade Name Freq PRN Reason Stop Dose Admin Amlodipine Besylate 5 mg 02/14/24 09:00 02/20/24 09:23 Amlodipine Besylate 5 Mg Tablet PO 5 mg DAILY YESENIA Administration Dextrose 12.5 gm 02/13/24 01:22 Dextrose 50% 25 Gm/50 Ml Syringe IV PUSH PRN PRN Hypoglycemia Protocol Enoxaparin Sodium 40 mg 02/18/24 09:00 02/20/24 09:23 Enoxaparin 40 Mg/0.4 Ml Syringe SUB-Q 40 mg DAILY YESENIA Administration Ferrous Sulfate 325 mg 02/13/24 09:00 02/20/24 09:23 Ferrous Sulfate [address] BY MOUTH 325 mg DAILY YESENIA Administration Folic Acid 1 mg 02/13/24 09:00 02/20/24 09:22 Folic Acid 1 Mg Tablet PO 1 mg DAILY YESENIA Administration Furosemide 40 mg 02/14/24 09:00 02/20/24 09:23 Furosemide 40 Mg Tablet PO 40 mg DAILY YESENIA Administration Glucagon 1 mg 02/13/24 01:22 Glucagon For Inj 1 Mg Vial IM PRN PRN Hypoglycemia Protocol Glucose 15 gm 02/13/24 01:22 Glucose Oral Gel 15 Gm Of Glucse In 37.5 Gm Tube PO PRN PRN Hypoglycemia Protocol Dextrose 1,000 mls @ 100 mls/hr 02/13/24 01:22 Dextrose 5% 1,000 Ml IVPB PRN PRN Hypoglycemia Protocol Morphine Sulfate 30 mg in 30 mls @ 0 mls/hr 02/17/24 17:56 02/19/24 22:25 Morphine Sulfate Education Consultant IV CONT 0 mg/hr PRN PRN 0 mls/hr REMOTE RUBY ON RAILS DEVELOPER Management Administration Protocol 0 MG/HR Sodium Chloride 1,000 mls @ 100 mls/hr 02/17/24 17:56 02/20/24 04:32 Normal Saline Iv IV CONT 100 mls/hr .Q10H YESENIA Administration Morphine Sulfate 15 mg 02/15/24 10:11 02/17/24 04:17 Morphine Sulfate (*Crx) 15 Mg Tab Ir PO 15 mg Q6H PRN Administration Pain Rated 4-6 Naloxone HCl 0.1 mg 02/17/24 17:56 Naloxone Hcl 0.4 Mg/Ml Vial IV PUSH Q2M PRN Opiate Reversal Pantoprazole Sodium 40 mg 02/13/24 09:00 02/20/24 09:22 Pantoprazole 40 Mg Tablet PO 40 mg DAILY YESENIA Administration Radiology Results: ITS Impressions Transvaginal US 02/13/24 15:11 IMPRESSION: Bilateral septated cysts with internal echoes suggestive of hemorrhagic cysts. Follow-up advised. Status post hysterectomy. Otherwise, normal pelvic ultrasound. Venous Doppler Study 02/14/24 14:47 IMPRESSION: 1. No deep venous thrombosis in the left lower limb. 2. Small left Arreaga's cyst. Labs Labs: Laboratory Results - last 24 hr 02/16/24 02/19/24 02/19/24 16:37 11:42 17:40 WBC RBC Hgb Hct MCV MCH MCHC RDW Plt Count MPV Immature Gran % (Auto) Neut % (Auto) Lymph % (Auto) [place] % (Auto) Eos % (Auto) Baso % (Auto) Lymph # (Auto) [place] # (Auto) Eos # (Auto) Baso # (Auto) Abs Immat Gran (auto) Absolute Neuts (auto) Absolute Nucleated RBC Nucleated RBC % Sodium Potassium Chloride Carbon Dioxide Anion Gap BUN Creatinine Estim Creat Clear Calc Estimated GFR Glucose POC Capillary Glucose 73 136 H Calcium Total Bilirubin AST ALT Alkaline Phosphatase Total Protein Albumin Crossmatch See Detail 02/19/24 02/20/24 02/20/24 23:51 04:40 06:29 WBC 8.4 RBC 3.76 L Hgb 9.9 L Hct 32.5 L MCV 86.4 MCH 26.3 MCHC 30.5 L RDW 16.1 H Plt Count 245 MPV 12.4 H Immature Gran % (Auto) 0.6 H Neut % (Auto) 73.5 H Lymph % (Auto) 11.0 L [place] % (Auto) 8.5 Eos % (Auto) 6.2 H Baso % (Auto) 0.2 Lymph # (Auto) 0.92 [place] # (Auto) 0.7 H Eos # (Auto) 0.5 H Baso # (Auto) 0.0 Abs Immat Gran (auto) 0.05 H Absolute Neuts (auto) 6.1 Absolute Nucleated RBC 0.000 Nucleated RBC % 0.0 Sodium 135 L Potassium 4.0 Chloride 106 Carbon Dioxide 23 Anion Gap 6 BUN 16 Creatinine 1.30 H Estim Creat Clear Calc 49 Estimated GFR 44 L Glucose 107 POC Capillary Glucose 104 110 H Calcium 8.5 Total Bilirubin 0.8 AST 27 ALT 118 H Alkaline Phosphatase 379 H Total Protein 7.0 Albumin 3.2 L Crossmatch
[2024-02-20 11:40] VITALS: RESP 10; O2SAT 99
[2024-02-20] MEDS: MORPHINE SULFATE PCA (*CRX) 30 MG/30 ML SYR IV CONT (11:40)
[2024-02-20 12:02] LABS: Glucose Point of Care 109 mg/dl (65-105)
[2024-02-20 14:00] VITALS: BP 160/77; PULSE 85; RESP 12; TEMP 36.3; O2SAT 93
[2024-02-20] MEDS: polyethylene glycoL 3350 17 GM POWD.PACK PO (14:18)
[2024-02-20] MEDS: SODIUM CHLORIDE 0.9% IV 1,000 ML 50 ML IV CONT (17:00)
[2024-02-20 18:39] LABS: Glucose Point of Care 98 mg/dl (65-105)
[2024-02-20 20:47] VITALS: BP 124/66; PULSE 68; RESP 20; TEMP 36.3; O2SAT 100
[2024-02-20] MEDS: SENNA/DOCUSATE SODIUM TABLET 2 TAB PO (21:32)
[2024-02-21 03:59] LABS: Glucose Point of Care 83 mg/dl (65-105)
[2024-02-21 05:59] LABS: Basophils Percent Auto 0.5 % (0.2-1.2); Eosinophils Absolute Auto 0.5 K/mm3 (0-0.3); Eosinophils Percent Auto 6.7 % (0-4.4); Hematocrit 32.2 % (37.0-47.0); Hemoglobin 9.7 g/dL (12.0-15.0); Immature Granulocyte Absolute 0.03 K/mm3 (0.00-0.031); Immature Granulocyte Percent A 0.4 % (0-0.5); Lymphocytes Absolute Auto 1.71 K/mm3 (0.9-3.2); Lymphocytes Percent Auto 22.4 % (18.3-44.2); Mean Corpuscular HGB Conc 30.1 g/dl (32-36); Mean Corpuscular Volume 86.3 fl (80-100); Mean Platelet Volume 11.8 fl (7.4-10.4); Monocytes Absolute Auto 0.8 K/mm3 (0.1-0.6); Monocytes Percent Auto 9.8 % (2.6-8.5); Neutrophils Absolute Auto 4.6 K/mm3 (1.3-6.7); Neutrophils Percent Auto 60.2 % (45.5-73.1); Platelet Count Result 310 k/mm3 (150-375); Red Blood Count 3.73 M/mm3 (4.2-5.4); Red Cell Distribution Width 15.9 % (11.5-14.5); White Blood Count 7.6 K/mm3 (4.5-10.0)
[2024-02-21 06:00] VITALS: BP 156/86; PULSE 76; RESP 20; TEMP 36.7; O2SAT 98
[2024-02-21 06:13] LABS: Alanine Aminotransferase 78 U/L (6-35); Albumin Level 3.3 g/dL (3.5-5.1); Alkaline Phosphatase 351 U/L (38-126); Anion Gap 5 mmol/L (4-12); Aspartate Amino Transferase 33 U/L (14-36); Bilirubin,Total 0.8 mg/dL (0.2-1.3); Blood Urea Nitrogen 14 mg/dL (7-17); Calcium 8.4 mg/dL (8.4-10.2); Carbon Dioxide 28 mmol/L (22-30); Chloride 105 mmol/L (98-107); Estimated CRCL calculation 46 ml/min; Estimated Glomerular Filt Rate 40; Glucose 98 mg/dL (65-110); Potassium 3.6 mmol/L (3.4-5.0); Sodium 138 mmol/L (137-145)
[2024-02-21 08:01] LABS: Glucose Point of Care 85 mg/dl (65-105)
[2024-02-21] MEDS: amLODIPine BESYLATE 5 MG TABLET PO (10:28)
[2024-02-21] MEDS: PANTOPRAZOLE 40 MG TABLET PO (10:29)
[2024-02-21] MEDS: FUROSEMIDE 40 MG TABLET PO (10:29)
[2024-02-21] MEDS: FOLIC ACID 1 MG TABLET PO (10:29)
[2024-02-21] MEDS: ENOXAPARIN 40 MG/0.4 ML SYRINGE SUB-Q (10:29)
[2024-02-21] MEDS: FERROUS SULFATE 325 MG TABLET DR BY MOUTH (10:29)
[2024-02-21] MEDS: polyethylene glycoL 3350 17 GM POWD.PACK PO (10:29)
--- NOTE | 2024-02-21 11:07 | PM.PNGS ---
Progress Note: A&P Assessment and Plan (1) Recurrent incisional hernia with incarceration: Code(s): K43.0 - Incisional hernia with obstruction, without gangrene Status: Acute Assessment and Plan: Postoperative pain is improving. Will stop the MEDICAL CODING TECHNICIAN and transition to oral analgesics. Continue Miralax and Senokot S scheduled. Still no BM, so I will also order a fleets enema today. Continue increasing activity and ambulate at least 3 times during the day. Patient may be discharged in the next 1-2 days if she continues to improve and postoperative pain is well-controlled. (2) Chronic kidney disease: Code(s): N18.9 - Chronic kidney disease, unspecified Status: Acute Assessment and Plan: Continue to monitor. Creatinine 1.4. She is tolerating more fluid intake and will stop IV fluids. Repeat labs tomorrow. (3) Methamphetamine addiction: Code(s): F15.20 - Other stimulant dependence, uncomplicated Status: Acute Plan I have discussed the patient's case and plan of care with Dr. Quigley. Subjective Subjective Date/Time Seen: 02/21/24 11:07 Post Op day: 4 Patient reports: feels better, voiding w/o difficulty, flatus, no bowel movement and afebrile Interval history: Patient slept better overnight and felt like she was able to rest. She is requiring less bolus doses on the MEDICAL CODING TECHNICIAN through the night and morning. She feels slightly nauseous and did not eat much for breakfast or in the evening last night. She is drinking fluids well. No other complaints at this time. Exam Const: General: comfortable, no acute distress and awake GI: Inspection: non-distended, incision (dry and healing well, no erythema) and other (JUWAN scant mostly serous drainage) GI Palp: Yes Soft to palpation, Yes Tenderness to palpation present (GI), No Guarding due to palpation present (GI) and No Hernia present (repair intact) Auscultation: normal bowel sounds Objective Data Vital Signs Vital Signs: Vital Signs - 24 hr 02/20/24 14:00 02/20/24 20:47 02/20/24 20:05 Temperature 97.3 F L 97.3 F L Pulse Rate 85 68 Respiratory Rate 12 20 Blood Pressure 160/77 H 124/66 Pulse Oximetry 93 100 Oxygen Delivery Room Air 02/20/24 11:40 02/21/24 06:00 Temperature 98.0 F Pulse Rate 76 Respiratory Rate 10 L 20 Blood Pressure 156/86 H Pulse Oximetry 99 98 Oxygen Delivery Intake/Output Intake/Output: Intake & Output 02/18/24 02/19/24 02/20/24 02/21/24 23:59 23:59 23:59 23:59 Intake Total 2980 3130 3695.0 840 Output Total 1185 2005 700 1500 Balance 1795 1125 2995.0 -660 Meds/Results Medications: Active Medications Generic Name Dose Route Start Last Admin Trade Name Freq PRN Reason Stop Dose Admin Acetaminophen 1,000 mg 02/21/24 01:51 Acetaminophen 500 Mg Tablet PO Q6H PRN Mild pain or Fever Amlodipine Besylate 5 mg 02/14/24 09:00 02/21/24 10:28 Amlodipine Besylate 5 Mg Tablet PO 5 mg DAILY YESENIA Administration Dextrose 12.5 gm 02/13/24 01:22 Dextrose 50% 25 Gm/50 Ml Syringe IV PUSH PRN PRN Hypoglycemia Protocol Enoxaparin Sodium 40 mg 02/18/24 09:00 02/21/24 10:29 Enoxaparin 40 Mg/0.4 Ml Syringe SUB-Q 40 mg DAILY YESENIA Administration Ferrous Sulfate 325 mg 02/13/24 09:00 02/21/24 10:29 Ferrous Sulfate [address] BY MOUTH 325 mg DAILY YESENIA Administration Folic Acid 1 mg 02/13/24 09:00 02/21/24 10:29 Folic Acid 1 Mg Tablet PO 1 mg DAILY YESENIA Administration Furosemide 40 mg 02/14/24 09:00 02/21/24 10:29 Furosemide 40 Mg Tablet PO 40 mg DAILY YESENIA Administration Glucagon 1 mg 02/13/24 01:22 Glucagon For Inj 1 Mg Vial IM PRN PRN Hypoglycemia Protocol Glucose 15 gm 02/13/24 01:22 Glucose Oral Gel 15 Gm Of Glucse In 37.5 Gm Tube PO PRN PRN Hypoglycemia Protocol Dextrose 1,000 mls @ 100 mls/hr 02/13/24 01:22 Dextrose 5% 1,000 Ml IVPB PRN PRN Hypoglycemia Protocol Morphine Sulfate 30 mg in 30 mls @ 0 mls/hr 02/17/24 17:56 02/20/24 11:40 Morphine Sulfate Groundskeeper IV CONT 0 mg/hr PRN PRN 0 mls/hr MEDICAL CODING TECHNICIAN Management Administration Protocol 0 MG/HR Sodium Chloride 1,000 mls @ 50 mls/hr 02/17/24 17:56 02/21/24 02:13 Normal Saline Iv IV CONT Not Given .Q20H YESENIA Morphine Sulfate 15 mg 02/15/24 10:11 02/17/24 04:17 Morphine Sulfate (*Crx) 15 Mg Tab Ir PO 15 mg Q6H PRN Administration Pain Rated 4-6 Naloxone HCl 0.1 mg 02/17/24 17:56 Naloxone Hcl 0.4 Mg/Ml Vial IV PUSH Q2M PRN Opiate Reversal Pantoprazole Sodium 40 mg 02/13/24 09:00 02/21/24 10:29 Pantoprazole 40 Mg Tablet PO 40 mg DAILY YESENIA Administration Polyethylene Glycol 17 gm 02/20/24 11:45 02/21/24 10:29 Polyethylene Glycol 3350 17 Gm Powd.Pack PO 17 gm QAM YESENIA Administration Senna/Docusate Sodium 2 tab 02/20/24 21:00 02/20/24 21:32 Senna/Docusate Sodium Tablet PO 2 tab HS YESENIA Administration Radiology Results: ITS Impressions Transvaginal US 02/13/24 15:11 IMPRESSION: Bilateral septated cysts with internal echoes suggestive of hemorrhagic cysts. Follow-up advised. Status post hysterectomy. Otherwise, normal pelvic ultrasound. Venous Doppler Study 02/14/24 14:47 IMPRESSION: 1. No deep venous thrombosis in the left lower limb. 2. Small left Arreaga's cyst. Labs Labs: Laboratory Results - last 24 hr 02/20/24 02/20/24 02/21/24 11:58 18:35 00:02 WBC RBC Hgb Hct MCV MCH MCHC RDW Plt Count MPV Immature Gran % (Auto) Neut % (Auto) Lymph % (Auto) [place] % (Auto) Eos % (Auto) Baso % (Auto) Lymph # (Auto) [place] # (Auto) Eos # (Auto) Baso # (Auto) Abs Immat Gran (auto) Absolute Neuts (auto) Absolute Nucleated RBC Nucleated RBC % Sodium Potassium Chloride Carbon Dioxide Anion Gap BUN Creatinine Estim Creat Clear Calc Estimated GFR Glucose POC Capillary Glucose 109 H 98 83 Calcium Total Bilirubin AST ALT Alkaline Phosphatase Total Protein Albumin 02/21/24 02/21/24 05:27 06:59 WBC 7.6 RBC 3.73 L Hgb 9.7 L Hct 32.2 L MCV 86.3 MCH 26.0 MCHC 30.1 L RDW 15.9 H Plt Count 310 MPV 11.8 H Immature Gran % (Auto) 0.4 Neut % (Auto) 60.2 Lymph % (Auto) 22.4 [place] % (Auto) 9.8 H Eos % (Auto) 6.7 H Baso % (Auto) 0.5 Lymph # (Auto) 1.71 [place] # (Auto) 0.8 H Eos # (Auto) 0.5 H Baso # (Auto) 0.0 Abs Immat Gran (auto) 0.03 Absolute Neuts (auto) 4.6 Absolute Nucleated RBC 0.000 Nucleated RBC % 0.0 Sodium 138 Potassium 3.6 Chloride 105 Carbon Dioxide 28 Anion Gap 5 BUN 14 Creatinine 1.40 H Estim Creat Clear Calc 46 Estimated GFR 40 L Glucose 98 POC Capillary Glucose 85 Calcium 8.4 Total Bilirubin 0.8 AST 33 ALT 78 H Alkaline Phosphatase 351 H Total Protein 7.0 Albumin 3.3 L
--- NOTE | 2024-02-21 11:46 | P.PNIM_ITS ---
Progress Note: A&P Assessment and Plan (1) Periumbilical hernia: Code(s): K42.9 - Umbilical hernia without obstruction or gangrene Status: Acute Assessment and Plan: History of a small-bowel obstruction in September of 2023 she reportedly had an exploratory laparotomy with small-bowel resection and ventral hernia repair with mesh. She states that the hernia they repaired was in the right upper quadrant and had not noticed a periumbilical bulge until a few days ago. Patient has a reducible umbilical hernia given edema patient may have some component of incarceration. - Abdomen/pelvis CT 09/30/23: An area of thickened bowel in the pelvis may indicate ischemia versus inflammatory changes or Crohn's disease. - Abdomen/pelvis CT: Moderate periumbilical hernia containing a loop of unobstructed small bowel, with surrounding edema/inflammatory change. - Diet: Heart healthy - Analgesics: taken off [employer] today and transitioned to oral oxycodone/APAP 5-325 mg PO 1 tab q 4 PRN and Morphine 1-2 mg ivp q 2 PRN. - Creatinine 2.0 after surgery, improved today to 1.40. - Surgery Repair Recurrent Incisional Hernia with Mesh on 02/17/24 dressing C/D/I. - BC no growth (2) Ovarian cyst: Code(s): N83.209 - Unspecified ovarian cyst, unspecified side Status: Acute Assessment and Plan: - Abdomen/pelvis CT: 3.5 cm simple appearing left ovarian cyst. Recommend nonemergent but timely follow-up pelvic ultrasound for further characterization. - Pelvic US: Bilateral septated cysts with internal echoes suggestive of hemorrhagic cysts. Follow-up advised. Status post hysterectomy. Otherwise, normal pelvic ultrasound. - Follow up outpatient (3) Anemia: Code(s): D64.9 - Anemia, unspecified Status: Chronic Assessment and Plan: Patient reports intermittent bloody stools. Prior CT scan in September when patient had bowel obstruction suggested possible min of inflammatory bowel disease or Crohn's disease. Patient's CT today does not mention this. Patient's dark stools could be due to her iron supplementation. Some of her diarrhea could also be due to withdrawal from recent meth use. - H/H 9.7/32.2 on am labs - fecal occult ordered. - continue iron supplementation - continue patient's home Protonix. - she could benefit from outpatient evaluation with colonoscopy. Consider GI consult pending fecal occult. (4) Diarrhea: Qualifiers: Diarrhea type: unspecified type Qualified Code(s): R19.7 - Diarrhea, unspecified Code(s): R19.7 - Diarrhea, unspecified Status: Acute Assessment and Plan: Patient reported on admission intermittent bloody stools. Prior CT scan in September when patient had bowel obstruction suggested possible min of inflammatory bowel disease or Crohn's disease. Patient's CT today does not mention this. Patient's dark stools could be due to her iron supplementation. Some of her diarrhea could also be due to withdrawal from recent meth use. - fecal occult ordered. - continue patient's home Protonix. - she could benefit from outpatient evaluation with colonoscopy. Consider GI consult pending fecal occult. - monitor vital signs, I&Os, track stool output, watch for bloody stools, neuro status and patient is a fall risk - monitor serum electrolytes and CBC (5) Transaminitis: Code(s): R74.01 - Elevation of levels of liver transaminase levels Status: Acute Assessment and Plan: LFTs on admission: tot bili WNL, AST 386, ALT 188, alk phos 177 - LFT's this AM: AST 33, ALT 78, alk phos 351. - Liver normal on abdomen/pelvis CT. Patient s/p cholecystectomy. - Hepatitis panel negative - Possibly meth induced, encouraged cessation - Monitor (6) Methamphetamine addiction: Code(s): F15.20 - Other stimulant dependence, uncomplicated Status: Acute Assessment and Plan: Last used a week ago. UDS +. Patient is interested in cessation. - Care coordination consulted for resources (7) Hypertension: Qualifiers: Hypertension type: unspecified Qualified Code(s): I10 - Essential (primary) hypertension Code(s): I10 - Essential (primary) hypertension Status: Chronic Assessment and Plan: Chronic, currently holding home medications as patients BP has been stable despite being off of them. - patient hypertensive, will resume home medications - amlodipine 5 mg daily and lasix 40 mg daily - Blood pressure 154/75 - monitor (8) Lymphedema of left lower extremity: Code(s): I89.0 - Lymphedema, not elsewhere classified Status: Acute Assessment and Plan: Patient has chronic lymphedema with chronic venous stasis changes. - maleate cream for lower extremities - venous dopplers negative - Patient reports that she uses lymphatic bandages at home. Subjective Date/time seen: 02/21/24 11:46 Interval history: Patient reports abdomen pain is a 2 , constant, and cramping. Patient denies shortness of breath, nausea, vomiting, headache, or dizziness. Patient reports passing gas and feeling that she will need to have a bowel movement soon, fleets enema ordered by surgery. Patient to be transitioned off of [employer] today to oral and ivp pain medications. Review of Systems Review of Systems: All systems reviewed & are unremarkable except as noted in HPI and below Exam Const: General: no acute distress and uncomfortable Resp: Effort & Inspection: normal respiratory effort Auscultation: clear to auscultation bilaterally Cardio: Rate: regular rate Rhythm: regular rhythm GI: GI Palp: Yes Tenderness to palpation present (GI) Auscultation: normal bowel sounds Other: Abdominal binder in place. Neuro: Speech: normal speech Extrem: Other: 2+ LLE lymphedema with scab in center of [place]. Psych: Mental Status: mental status grossly normal Affect: normal affect Objective Data Vital Signs Vital Signs: Vital Signs - 24 hr 02/20/24 14:00 02/20/24 20:47 02/20/24 20:05 Temperature 97.3 F L 97.3 F L Pulse Rate 85 68 Respiratory Rate 12 20 Blood Pressure 160/77 H 124/66 Pulse Oximetry 93 100 Oxygen Delivery Room Air 02/21/24 06:00 Temperature 98.0 F Pulse Rate 76 Respiratory Rate 20 Blood Pressure 156/86 H Pulse Oximetry 98 Oxygen Delivery Intake/Output Intake/Output: Intake & Output 02/18/24 02/19/24 02/20/24 02/21/24 23:59 23:59 23:59 23:59 Intake Total 2980 3130 3695.0 840 Output Total 1185 2005 700 1500 Balance 1795 1125 2995.0 -660 Meds/Results Medications: Active Medications Generic Name Dose Route Start Last Admin Trade Name Freq PRN Reason Stop Dose Admin Acetaminophen 1,000 mg 02/21/24 01:51 Acetaminophen 500 Mg Tablet PO Q6H PRN Mild pain or Fever Amlodipine Besylate 5 mg 02/14/24 09:00 02/21/24 10:28 Amlodipine Besylate 5 Mg Tablet PO 5 mg DAILY YEESNIA Administration Dextrose 12.5 gm 02/13/24 01:22 Dextrose 50% 25 Gm/50 Ml Syringe IV PUSH PRN PRN Hypoglycemia Protocol Enoxaparin Sodium 40 mg 02/18/24 09:00 02/21/24 10:29 Enoxaparin 40 Mg/0.4 Ml Syringe SUB-Q 40 mg DAILY YESENIA Administration Ferrous Sulfate 325 mg 02/13/24 09:00 02/21/24 10:29 Ferrous Sulfate [address] BY MOUTH 325 mg DAILY YESENIA Administration Folic Acid 1 mg 02/13/24 09:00 02/21/24 10:29 Folic Acid 1 Mg Tablet PO 1 mg DAILY YESENIA Administration Furosemide 40 mg 02/14/24 09:00 02/21/24 10:29 Furosemide 40 Mg Tablet PO 40 mg DAILY YESENIA Administration Glucagon 1 mg 02/13/24 01:22 Glucagon For Inj 1 Mg Vial IM PRN PRN Hypoglycemia Protocol Glucose 15 gm 02/13/24 01:22 Glucose Oral Gel 15 Gm Of Glucse In 37.5 Gm Tube PO PRN PRN Hypoglycemia Protocol Dextrose 1,000 mls @ 100 mls/hr 02/13/24 01:22 Dextrose 5% 1,000 Ml IVPB PRN PRN Hypoglycemia Protocol Morphine Sulfate 1 mg 02/21/24 11:08 Morphine Sulfate (*Crx) 2 Mg/Ml Inj IV PUSH Q2H PRN Pain Rated 4-6 Morphine Sulfate 2 mg 02/21/24 11:08 Morphine Sulfate (*Crx) 2 Mg/Ml Inj IV PUSH Q2H PRN Pain Rated 7-10 Naloxone HCl 0.1 mg 02/17/24 17:56 Naloxone Hcl 0.4 Mg/Ml Vial IV PUSH Q2M PRN Opiate Reversal Oxycodone/Acetaminophen 1 tablet 02/21/24 11:08 Oxycodone/Acetaminophen (*Crx) 5-325 Mg Tablet PO Q4H PRN Pain Rated 4-6 Oxycodone/Acetaminophen 1 tab 02/21/24 11:08 Oxycodone/Acetaminophen (*Crx) 10-325 Mg Tablet PO Q4H PRN Pain Rated 7-10 Pantoprazole Sodium 40 mg 02/13/24 09:00 02/21/24 10:29 Pantoprazole 40 Mg Tablet PO 40 mg DAILY YESENIA Administration Polyethylene Glycol 17 gm 02/20/24 11:45 02/21/24 10:29 Polyethylene Glycol 3350 17 Gm Powd.Pack PO 17 gm QAM YESENIA Administration Senna/Docusate Sodium 2 tab 02/20/24 21:00 02/20/24 21:32 Senna/Docusate Sodium Tablet PO 2 tab HS YESENIA Administration Radiology Results: ITS Impressions Transvaginal US 02/13/24 15:11 IMPRESSION: Bilateral septated cysts with internal echoes suggestive of hemorrhagic cysts. Follow-up advised. Status post hysterectomy. Otherwise, normal pelvic ultrasound. Venous Doppler Study 02/14/24 14:47 IMPRESSION: 1. No deep venous thrombosis in the left lower limb. 2. Small left Arreaga's cyst. Labs Labs: Laboratory Results - last 24 hr 02/20/24 02/20/24 02/21/24 11:58 18:35 00:02 WBC RBC Hgb Hct MCV MCH MCHC RDW Plt Count MPV Immature Gran % (Auto) Neut % (Auto) Lymph % (Auto) [place] % (Auto) Eos % (Auto) Baso % (Auto) Lymph # (Auto) [place] # (Auto) Eos # (Auto) Baso # (Auto) Abs Immat Gran (auto) Absolute Neuts (auto) Absolute Nucleated RBC Nucleated RBC % Sodium Potassium Chloride Carbon Dioxide Anion Gap BUN Creatinine Estim Creat Clear Calc Estimated GFR Glucose POC Capillary Glucose 109 H 98 83 Calcium Total Bilirubin AST ALT Alkaline Phosphatase Total Protein Albumin 02/21/24 02/21/24 05:27 06:59 WBC 7.6 RBC 3.73 L Hgb 9.7 L Hct 32.2 L MCV 86.3 MCH 26.0 MCHC 30.1 L RDW 15.9 H Plt Count 310 MPV 11.8 H Immature Gran % (Auto) 0.4 Neut % (Auto) 60.2 Lymph % (Auto) 22.4 [place] % (Auto) 9.8 H Eos % (Auto) 6.7 H Baso % (Auto) 0.5 Lymph # (Auto) 1.71 [place] # (Auto) 0.8 H Eos # (Auto) 0.5 H Baso # (Auto) 0.0 Abs Immat Gran (auto) 0.03 Absolute Neuts (auto) 4.6 Absolute Nucleated RBC 0.000 Nucleated RBC % 0.0 Sodium 138 Potassium 3.6 Chloride 105 Carbon Dioxide 28 Anion Gap 5 BUN 14 Creatinine 1.40 H Estim Creat Clear Calc 46 Estimated GFR 40 L Glucose 98 POC Capillary Glucose 85 Calcium 8.4 Total Bilirubin 0.8 AST 33 ALT 78 H Alkaline Phosphatase 351 H Total Protein 7.0 Albumin 3.3 L Quality VTE Prophylaxis VTE prophylaxis: mechanical ordered
[2024-02-21 12:12] LABS: Glucose Point of Care 110 mg/dl (65-105)
[2024-02-21 14:00] VITALS: BP 148/74; PULSE 72; RESP 19; TEMP 36.5; O2SAT 97
[2024-02-21] MEDS: oxyCODONE/ACETAMINOPHEN (*CRX) 5-325 MG TABLET 1 TABLET PO ×2 (15:54→20:37)
[2024-02-21 17:09] LABS: Glucose Point of Care 127 mg/dl (65-105)
[2024-02-21 19:33] VITALS: BP 125/74; PULSE 78; RESP 18; TEMP 36.3; O2SAT 98
[2024-02-21 20:00] VITALS: PULSE 78; RESP 18; O2SAT 98
[2024-02-21] MEDS: SENNA/DOCUSATE SODIUM TABLET 2 TAB PO (20:38)
[2024-02-22 00:23] LABS: Glucose Point of Care 111 mg/dl (65-105)
[2024-02-22 04:52] VITALS: BP 139/89; PULSE 95; RESP 18; TEMP 37; O2SAT 100
[2024-02-22] MEDS: oxyCODONE/ACETAMINOPHEN (*CRX) 10-325 MG TABLET 1 TAB PO ×2 (05:21→12:20)
[2024-02-22 05:43] LABS: Basophils Absolute Auto 0.1 K/mm3 (0.0-0.1); Basophils Percent Auto 0.8 % (0.2-1.2); Eosinophils Absolute Auto 0.6 K/mm3 (0-0.3); Eosinophils Percent Auto 8.2 % (0-4.4); Hematocrit 33.9 % (37.0-47.0); Hemoglobin 10.3 g/dL (12.0-15.0); Immature Granulocyte Absolute 0.03 K/mm3 (0.00-0.031); Immature Granulocyte Percent A 0.4 % (0-0.5); Lymphocytes Absolute Auto 1.84 K/mm3 (0.9-3.2); Lymphocytes Percent Auto 25.7 % (18.3-44.2); Mean Corpuscular HGB Conc 30.4 g/dl (32-36); Mean Corpuscular Hemoglobin 25.9 pg (26-34); Mean Corpuscular Volume 85.4 fl (80-100); Mean Platelet Volume 11.6 fl (7.4-10.4); Monocytes Absolute Auto 0.6 K/mm3 (0.1-0.6); Monocytes Percent Auto 8.6 % (2.6-8.5); Neutrophils Percent Auto 56.3 % (45.5-73.1); Platelet Count Result 354 k/mm3 (150-375); Red Blood Count 3.97 M/mm3 (4.2-5.4); Red Cell Distribution Width 15.7 % (11.5-14.5); White Blood Count 7.2 K/mm3 (4.5-10.0)
[2024-02-22 05:54] LABS: Alanine Aminotransferase 62 U/L (6-35); Albumin Level 3.4 g/dL (3.5-5.1); Alkaline Phosphatase 328 U/L (38-126); Anion Gap 4 mmol/L (4-12); Aspartate Amino Transferase 22 U/L (14-36); Bilirubin,Total 0.6 mg/dL (0.2-1.3); Blood Urea Nitrogen 15 mg/dL (7-17); Calcium 8.2 mg/dL (8.4-10.2); Carbon Dioxide 32 mmol/L (22-30); Chloride 103 mmol/L (98-107); Estimated CRCL calculation 46 ml/min; Estimated Glomerular Filt Rate 40; Glucose 100 mg/dL (65-110); Potassium 3.4 mmol/L (3.4-5.0); Sodium 139 mmol/L (137-145)
[2024-02-22 06:14] LABS: Glucose Point of Care 98 mg/dl (65-105)
--- NOTE | 2024-02-22 07:00 | P.PNIM_ITS ---
Progress Note: A&P Assessment and Plan (1) Periumbilical hernia: Code(s): K42.9 - Umbilical hernia without obstruction or gangrene Status: Acute Assessment and Plan: History of a small-bowel obstruction in September of 2023 she reportedly had an exploratory laparotomy with small-bowel resection and ventral hernia repair with mesh. She states that the hernia they repaired was in the right upper quadrant and had not noticed a periumbilical bulge until a few days ago. Patient has a reducible umbilical hernia given edema patient may have some component of incarceration. - Abdomen/pelvis CT 09/30/23: An area of thickened bowel in the pelvis may indicate ischemia versus inflammatory changes or Crohn's disease. - Abdomen/pelvis CT: Moderate periumbilical hernia containing a loop of unobstructed small bowel, with surrounding edema/inflammatory change. - Diet: Heart healthy - Analgesics. Taken off [employer] pump on 02/20 and transitioned to oral oxycodone/APAP 5-325 mg PO 1 tab q 4 PRN and Morphine 1-2 mg ivp q 2 PRN. - IV hydration - Abdominal binder - Surgery consult, appreciate recommendations s/p repair incarcerated incisional hernia with mesh, bilateral myofascial flap advancement, 6 cm on the right, 3 cm on the left with on 02/16 (2) Ovarian cyst: Code(s): N83.209 - Unspecified ovarian cyst, unspecified side Status: Acute Assessment and Plan: - Abdomen/pelvis CT: 3.5 cm simple appearing left ovarian cyst. Recommend nonemergent but timely follow-up pelvic ultrasound for further characterization. - Pelvic US: Bilateral septated cysts with internal echoes suggestive of hemorrhagic cysts. Follow-up advised. Status post hysterectomy. Otherwise, normal pelvic ultrasound. - Follow up outpatient (3) Anemia: Code(s): D64.9 - Anemia, unspecified Status: Chronic Assessment and Plan: Patient reports intermittent bloody stools. Prior CT scan in September when patient had bowel obstruction suggested possible min of inflammatory bowel disease or Crohn's disease. Patient's CT today does not mention this. Patient's dark stools could be due to her iron supplementation. Some of her diarrhea could also be due to withdrawal from recent meth use. - H/H 10.3/33.9 on am labs - fecal occult ordered. - continue iron supplementation - continue patient's home Protonix. - she could benefit from outpatient evaluation with colonoscopy. Consider GI consult pending fecal occult. (4) Diarrhea: Qualifiers: Diarrhea type: unspecified type Qualified Code(s): R19.7 - Diarrhea, unspecified Code(s): R19.7 - Diarrhea, unspecified Status: Acute Assessment and Plan: Patient reports intermittent bloody stools. Prior CT scan in September when patient had bowel obstruction suggested possible min of inflammatory bowel disease or Crohn's disease. Patient's CT today does not mention this. Patient's dark stools could be due to her iron supplementation. Some of her diarrhea could also be due to withdrawal from recent meth use. - fecal occult ordered. - continue patient's home Protonix. - she could benefit from outpatient evaluation with colonoscopy. Consider GI consult pending fecal occult. - monitor vital signs, I&Os, track stool output, watch for bloody stools, neuro status and patient is a fall risk - monitor serum electrolytes and CBC (5) Transaminitis: Code(s): R74.01 - Elevation of levels of liver transaminase levels Status: Acute Assessment and Plan: LFTs on admission: tot bili WNL, AST 386, ALT 188, alk phos 177 - LFTs elevated on am labs. AST 22, ALT 62, alk phos 328 - Liver normal on abdomen/pelvis CT. Patient s/p cholecystectomy. - Hepatitis panel negative - Possibly meth induced, encouraged cessation - Monitor (6) Methamphetamine addiction: Code(s): F15.20 - Other stimulant dependence, uncomplicated Status: Acute Assessment and Plan: Last used a week prior to admission. UDS +. Patient is interested in cessation. - Care coordination consulted for resources (7) Lymphedema of left lower extremity: Code(s): I89.0 - Lymphedema, not elsewhere classified Status: Acute Assessment and Plan: Patient has chronic lymphedema with chronic venous stasis changes. - maleate cream for lower extremities - venous dopplers negative - Patient reports that she uses lymphatic bandages at home. (8) Hypertension: Qualifiers: Hypertension type: unspecified Qualified Code(s): I10 - Essential (primary) hypertension Code(s): I10 - Essential (primary) hypertension Status: Chronic Assessment and Plan: Chronic, currently holding home medications as patients BP has been stable despite being off of them. - patient hypertensive, will resume home medications - amlodipine 5 mg daily and lasix 40 mg daily - monitor Subjective Date/time seen: 02/22/24 07:00 Interval history: 48-year-old female with a past medical history of gastric bypass, hysterectomy, cholecystectomy, appendectomy, abdominal surgery for small-bowel obstruction September 2023 and methamphetamine abuse who walked into to [facility] with her family with abdominal pain. Review of Systems Review of Systems: All systems reviewed & are unremarkable except as noted in HPI and below Exam Narrative: AF HR General: female in no acute respiratory distress who is nontoxic appearing, lying semi recumbent in bed. HEENT: Normocephalic. Atraumatic. Extraocular movement intact. Sclera clear and anicteric. No facial asymmetry. Chest: Lungs are clear to auscultation bilaterally. No wheezes or crackles. CV: Heart was regular rate and rhythm. S1-S2. No murmurs, gallops, or rubs. Abd: Abdomen was soft. Tender to palpation without guarding. Nondistended. Hypoactive bowel sounds. Reducible periumbilical hernia that immediately recurs with pain. No organomegaly or masses. Ext: No clubbing, cyanosis. 2+ DP pulses bilaterally. Lymphadenopathy to the left leg. Scabbing wound without discharge to the mid [place] region Neuro: Patient is alert and oriented x4. Cranial nerves 2-12 are intact. Speech is clear. Skin: Several healed abdominal surgery incisions. Objective Data Vital Signs Vital Signs: Vital Signs - 24 hr 02/21/24 10:30 02/21/24 14:00 02/21/24 19:33 Temperature 97.7 F 97.4 F L Pulse Rate 72 78 Respiratory Rate 19 18 Blood Pressure 148/74 H 125/74 Pulse Oximetry 97 98 Oxygen Delivery Room Air Fraction of Inspired Oxygen 02/21/24 20:00 02/22/24 04:52 Temperature 98.6 F Pulse Rate 78 95 Respiratory Rate 18 18 Blood Pressure 139/89 Pulse Oximetry 98 100 Oxygen Delivery Room Air Fraction of Inspired Oxygen 28 Intake/Output Intake/Output: Intake & Output 02/19/24 02/20/24 02/21/24 02/22/24 23:59 23:59 23:59 23:59 Intake Total 3130 3695.0 1484 400 Output Total 2004 848 2815 400 Balance 1125 2935.0 -1331 0 Meds/Results Medications: Active Medications Generic Name Dose Route Start Last Admin Trade Name Nisa PRN Reason Stop Dose Admin Acetaminophen 500 mg 02/21/24 16:43 Acetaminophen 500 Mg Tablet PO Q6H PRN Mild pain or Fever Amlodipine Besylate 5 mg 02/14/24 09:00 02/21/24 10:28 Amlodipine Besylate 5 Mg Tablet PO 5 mg DAILY YESENIA Administration Dextrose 12.5 gm 02/13/24 01:22 Dextrose 50% 25 Gm/50 Ml Syringe IV PUSH PRN PRN Hypoglycemia Protocol Enoxaparin Sodium 40 mg 02/18/24 09:00 02/21/24 10:29 Enoxaparin 40 Mg/0.4 Ml Syringe SUB-Q 40 mg DAILY YESENIA Administration Ferrous Sulfate 325 mg 02/13/24 09:00 02/21/24 10:29 Ferrous Sulfate [address] BY MOUTH 325 mg DAILY YESENIA Administration Folic Acid 1 mg 02/13/24 09:00 02/21/24 10:29 Folic Acid 1 Mg Tablet PO 1 mg DAILY YESENIA Administration Furosemide 40 mg 02/14/24 09:00 02/21/24 10:29 Furosemide 40 Mg Tablet PO 40 mg DAILY YESENIA Administration Glucagon 1 mg 02/13/24 01:22 Glucagon For Inj 1 Mg Vial IM PRN PRN Hypoglycemia Protocol Glucose 15 gm 02/13/24 01:22 Glucose Oral Gel 15 Gm Of Glucse In 37.5 Gm Tube PO PRN PRN Hypoglycemia Protocol Dextrose 1,000 mls @ 100 mls/hr 02/13/24 01:22 Dextrose 5% 1,000 Ml IVPB PRN PRN Hypoglycemia Protocol Morphine Sulfate 1 mg 02/21/24 11:08 Morphine Sulfate (*Crx) 2 Mg/Ml Inj IV PUSH Q2H PRN Pain Rated 4-6 Morphine Sulfate 2 mg 02/21/24 11:08 Morphine Sulfate (*Crx) 2 Mg/Ml Inj IV PUSH Q2H PRN Pain Rated 7-10 Naloxone HCl 0.1 mg 02/17/24 17:56 Naloxone Hcl 0.4 Mg/Ml Vial IV PUSH Q2M PRN Opiate Reversal Oxycodone/Acetaminophen 1 tablet 02/21/24 11:08 02/21/24 20:37 Oxycodone/Acetaminophen (*Crx) 5-325 Mg Tablet PO 1 tablet Q4H PRN Administration Pain Rated 4-6 Oxycodone/Acetaminophen 1 tab 02/21/24 11:08 02/22/24 05:21 Oxycodone/Acetaminophen (*Crx) 10-325 Mg Tablet PO 1 tab Q4H PRN Administration Pain Rated 7-10 Pantoprazole Sodium 40 mg 02/13/24 09:00 02/21/24 10:29 Pantoprazole 40 Mg Tablet PO 40 mg DAILY YESENIA Administration Polyethylene Glycol 17 gm 02/20/24 11:45 02/21/24 10:29 Polyethylene Glycol 3350 17 Gm Powd.Pack PO 17 gm QAM YESENIA Administration Senna/Docusate Sodium 2 tab 02/20/24 21:00 02/21/24 20:38 Senna/Docusate Sodium Tablet PO 2 tab HS YESENIA Administration Radiology Results: ITS Impressions Transvaginal US 02/13/24 15:11 IMPRESSION: Bilateral septated cysts with internal echoes suggestive of hemorrhagic cysts. Follow-up advised. Status post hysterectomy. Otherwise, normal pelvic ultrasound. Venous Doppler Study 02/14/24 14:47 IMPRESSION: 1. No deep venous thrombosis in the left lower limb. 2. Small left Arreaga's cyst. Labs Labs: Laboratory Results - last 24 hr 02/21/24 02/21/24 02/21/24 06:59 12:09 17:07 WBC RBC Hgb Hct MCV MCH MCHC RDW Plt Count MPV Immature Gran % (Auto) Neut % (Auto) Lymph % (Auto) [place] % (Auto) Eos % (Auto) Baso % (Auto) Lymph # (Auto) [place] # (Auto) Eos # (Auto) Baso # (Auto) Abs Immat Gran (auto) Absolute Neuts (auto) Absolute Nucleated RBC Nucleated RBC % Sodium Potassium Chloride Carbon Dioxide Anion Gap BUN Creatinine Estim Creat Clear Calc Estimated GFR Glucose POC Capillary Glucose 85 110 H 127 H Calcium Total Bilirubin AST ALT Alkaline Phosphatase Total Protein Albumin 02/21/24 02/22/24 02/22/24 23:28 05:05 05:11 WBC 7.2 RBC 3.97 L Hgb 10.3 L Hct 33.9 L MCV 85.4 MCH 25.9 L MCHC 30.4 L RDW 15.7 H Plt Count 354 MPV 11.6 H Immature Gran % (Auto) 0.4 Neut % (Auto) 56.3 Lymph % (Auto) 25.7 [place] % (Auto) 8.6 H Eos % (Auto) 8.2 H Baso % (Auto) 0.8 Lymph # (Auto) 1.84 [place] # (Auto) 0.6 Eos # (Auto) 0.6 H Baso # (Auto) 0.1 Abs Immat Gran (auto) 0.03 Absolute Neuts (auto) 4.0 Absolute Nucleated RBC 0.000 Nucleated RBC % 0.0 Sodium 139 Potassium 3.4 Chloride 103 Carbon Dioxide 32 H Anion Gap 4 BUN 15 Creatinine 1.40 H Estim Creat Clear Calc 46 Estimated GFR 40 L Glucose 100 POC Capillary Glucose 111 H 98 Calcium 8.2 L Total Bilirubin 0.6 AST 22 ALT 62 H Alkaline Phosphatase 328 H Total Protein 7.0 Albumin 3.4 L Quality VTE Prophylaxis VTE prophylaxis: mechanical ordered
[2024-02-22] MEDS: FERROUS SULFATE 325 MG TABLET DR BY MOUTH (08:15)
[2024-02-22] MEDS: ENOXAPARIN 40 MG/0.4 ML SYRINGE SUB-Q (08:15)
[2024-02-22] MEDS: FOLIC ACID 1 MG TABLET PO (08:15)
[2024-02-22] MEDS: PANTOPRAZOLE 40 MG TABLET PO (08:15)
[2024-02-22] MEDS: amLODIPine BESYLATE 5 MG TABLET PO (08:15)
[2024-02-22] MEDS: FUROSEMIDE 40 MG TABLET PO (08:15)
[2024-02-22] MEDS: polyethylene glycoL 3350 17 GM POWD.PACK PO (08:15)
[2024-02-22 12:14] LABS: Glucose Point of Care 83 mg/dl (65-105)
--- NOTE | 2024-02-22 12:38 | PCNWS ---
Weekly nutritional screen. Patient is tolerating current regular diet with adequate intake 50-100% most meals. Pt not interested in supplements. No weight loss reported. No nutritional recommendations at this time.
[2024-02-22 14:00] VITALS: BP 132/76; PULSE 85; RESP 18; TEMP 36.4; O2SAT 99
--- NOTE | 2024-02-22 15:17 | PM.PNGS ---
Progress Note: A&P Assessment and Plan (1) Recurrent incisional hernia with incarceration: Code(s): K43.0 - Incisional hernia with obstruction, without gangrene Status: Acute Assessment and Plan: Continues to clinically improve. Her abdominal pain has improved significantly after moving her bowels. Postoperative pain is well controlled with oral analgesics. Okay to discharge from a surgical standpoint. Follow up with Dr. Quigley in 2 weeks. All discharge instructions discussed with the patient. (2) Chronic kidney disease: Code(s): N18.9 - Chronic kidney disease, unspecified Status: Acute (3) Methamphetamine addiction: Code(s): F15.20 - Other stimulant dependence, uncomplicated Status: Acute Assessment and Plan: Discussed the importance of avoiding any illicit drug use in the future especially while on narcotic pain medication. Patient was educated and verbalized understanding Plan I have discussed the patient's case and plan of care with Dr. Quigley. Subjective Subjective Date/Time Seen: 02/22/24 15:17 Patient reports: no new complaints, feels better, pain is less (Well controlled with the Percocet), tolerating a regular diet, flatus, bowel movement and afebrile Interval history: Patient is feeling much better today. She has had a large bowel movement and feels like her abdominal pain has improved significantly. She only has some incisional soreness with movement now. No nausea or vomiting. No other complaints at this time. She is ambulating well per the patient and staff. She is going to stay with her mom on discharge she will be able to help her as needed after discharge. Exam Const: General: comfortable and no acute distress Orientation/consciousness: patient oriented x3 GI: Inspection: non-distended, incision (Healing well, dry and no erythema) and other (Left lower quadrant gauze dressing dry and intact from previous JUWAN drain) GI Palp: Yes Soft to palpation, Yes Tenderness to palpation present (GI) (Minimal expected incisional tenderness), No Guarding due to palpation present (GI), No Hernia present (Repair intact) and No Rebound tenderness present Auscultation: normal bowel sounds Objective Data Vital Signs Vital Signs: Vital Signs - 24 hr 02/21/24 19:33 02/21/24 20:00 02/22/24 04:52 Temperature 97.4 F L 98.6 F Pulse Rate 78 78 95 Respiratory Rate 18 18 18 Blood Pressure 125/74 139/89 Pulse Oximetry 98 98 100 Oxygen Delivery Room Air Fraction of Inspired Oxygen 28 02/22/24 08:10 02/22/24 14:00 Temperature 97.6 F Pulse Rate 85 Respiratory Rate 18 Blood Pressure 132/76 Pulse Oximetry 99 Oxygen Delivery Room Air Fraction of Inspired Oxygen Intake/Output Intake/Output: Intake & Output 02/19/24 02/20/24 02/21/24 02/22/24 23:59 23:59 23:59 23:59 Intake Total 3130 3695.0 1484 952 Output Total 2004 760 2815 400 Balance 1125 2935.0 -1331 552 Meds/Results Medications: Active Medications Generic Name Dose Route Start Last Admin Trade Name Freq PRN Reason Stop Dose Admin Acetaminophen 500 mg 02/21/24 16:43 Acetaminophen 500 Mg Tablet PO Q6H PRN Mild pain or Fever Amlodipine Besylate 5 mg 02/14/24 09:00 02/22/24 08:15 Amlodipine Besylate 5 Mg Tablet PO 5 mg DAILY YESENIA Administration Dextrose 12.5 gm 02/13/24 01:22 Dextrose 50% 25 Gm/50 Ml Syringe IV PUSH PRN PRN Hypoglycemia Protocol Enoxaparin Sodium 40 mg 02/18/24 09:00 02/22/24 08:15 Enoxaparin 40 Mg/0.4 Ml Syringe SUB-Q 40 mg DAILY YESENIA Administration Ferrous Sulfate 325 mg 02/13/24 09:00 02/22/24 08:15 Ferrous Sulfate [address] BY MOUTH 325 mg DAILY YESENIA Administration Folic Acid 1 mg 02/13/24 09:00 02/22/24 08:15 Folic Acid 1 Mg Tablet PO 1 mg DAILY YESENIA Administration Furosemide 40 mg 02/14/24 09:00 02/22/24 08:15 Furosemide 40 Mg Tablet PO 40 mg DAILY YESENIA Administration Glucagon 1 mg 02/13/24 01:22 Glucagon For Inj 1 Mg Vial IM PRN PRN Hypoglycemia Protocol Glucose 15 gm 02/13/24 01:22 Glucose Oral Gel 15 Gm Of Glucse In 37.5 Gm Tube PO PRN PRN Hypoglycemia Protocol Dextrose 1,000 mls @ 100 mls/hr 02/13/24 01:22 Dextrose 5% 1,000 Ml IVPB PRN PRN Hypoglycemia Protocol Morphine Sulfate 1 mg 02/21/24 11:08 Morphine Sulfate (*Crx) 2 Mg/Ml Inj IV PUSH Q2H PRN Pain Rated 4-6 Morphine Sulfate 2 mg 02/21/24 11:08 Morphine Sulfate (*Crx) 2 Mg/Ml Inj IV PUSH Q2H PRN Pain Rated 7-10 Naloxone HCl 0.1 mg 02/17/24 17:56 Naloxone Hcl 0.4 Mg/Ml Vial IV PUSH Q2M PRN Opiate Reversal Oxycodone/Acetaminophen 1 tablet 02/21/24 11:08 02/21/24 20:37 Oxycodone/Acetaminophen (*Crx) 5-325 Mg Tablet PO 1 tablet Q4H PRN Administration Pain Rated 4-6 Oxycodone/Acetaminophen 1 tab 02/21/24 11:08 02/22/24 12:20 Oxycodone/Acetaminophen (*Crx) 10-325 Mg Tablet PO 1 tab Q4H PRN Administration Pain Rated 7-10 Pantoprazole Sodium 40 mg 02/13/24 09:00 02/22/24 08:15 Pantoprazole 40 Mg Tablet PO 40 mg DAILY YESENIA Administration Polyethylene Glycol 17 gm 02/20/24 11:45 02/22/24 08:15 Polyethylene Glycol 3350 17 Gm Powd.Pack PO 17 gm QAM YESENIA Administration Senna/Docusate Sodium 2 tab 02/20/24 21:00 02/21/24 20:38 Senna/Docusate Sodium Tablet PO 2 tab HS YESENIA Administration Radiology Results: ITS Impressions Transvaginal US 02/13/24 15:11 IMPRESSION: Bilateral septated cysts with internal echoes suggestive of hemorrhagic cysts. Follow-up advised. Status post hysterectomy. Otherwise, normal pelvic ultrasound. Venous Doppler Study 02/14/24 14:47 IMPRESSION: 1. No deep venous thrombosis in the left lower limb. 2. Small left Arreaga's cyst. Labs Labs: Laboratory Results - last 24 hr 02/21/24 02/21/24 02/22/24 17:07 23:28 05:05 WBC RBC Hgb Hct MCV MCH MCHC RDW Plt Count MPV Immature Gran % (Auto) Neut % (Auto) Lymph % (Auto) [place] % (Auto) Eos % (Auto) Baso % (Auto) Lymph # (Auto) [place] # (Auto) Eos # (Auto) Baso # (Auto) Abs Immat Gran (auto) Absolute Neuts (auto) Absolute Nucleated RBC Nucleated RBC % Sodium Potassium Chloride Carbon Dioxide Anion Gap BUN Creatinine Estim Creat Clear Calc Estimated GFR Glucose POC Capillary Glucose 127 H 111 H 98 Calcium Total Bilirubin AST ALT Alkaline Phosphatase Total Protein Albumin 02/22/24 02/22/24 05:11 12:04 WBC 7.2 RBC 3.97 L Hgb 10.3 L Hct 33.9 L MCV 85.4 MCH 25.9 L MCHC 30.4 L RDW 15.7 H Plt Count 354 MPV 11.6 H Immature Gran % (Auto) 0.4 Neut % (Auto) 56.3 Lymph % (Auto) 25.7 [place] % (Auto) 8.6 H Eos % (Auto) 8.2 H Baso % (Auto) 0.8 Lymph # (Auto) 1.84 [place] # (Auto) 0.6 Eos # (Auto) 0.6 H Baso # (Auto) 0.1 Abs Immat Gran (auto) 0.03 Absolute Neuts (auto) 4.0 Absolute Nucleated RBC 0.000 Nucleated RBC % 0.0 Sodium 139 Potassium 3.4 Chloride 103 Carbon Dioxide 32 H Anion Gap 4 BUN 15 Creatinine 1.40 H Estim Creat Clear Calc 46 Estimated GFR 40 L Glucose 100 POC Capillary Glucose 83 Calcium 8.2 L Total Bilirubin 0.6 AST 22 ALT 62 H Alkaline Phosphatase 328 H Total Protein 7.0 Albumin 3.4 L
--- NOTE | 2024-02-22 15:40 | P.DS_ITS ---
DS: Admitting Diagnosis Discharge Date 02/24/2024 Admitting Diagnosis periumbilical hernia ovarian cyst anemia diarrhea transaminitis methamphetamine addiction lymphedema of left lower extremity hypertension DS: Discharge Diagnosis Discharge Diagnosis (1) Periumbilical hernia: Code(s): K42.9 - Umbilical hernia without obstruction or gangrene Status: Acute (2) Ovarian cyst: Code(s): N83.209 - Unspecified ovarian cyst, unspecified side Status: Acute (3) Anemia: Code(s): D64.9 - Anemia, unspecified Status: Chronic (4) Diarrhea: Qualifiers: Diarrhea type: unspecified type Qualified Code(s): R19.7 - Diarrhea, unspecified Code(s): R19.7 - Diarrhea, unspecified Status: Acute (5) Transaminitis: Code(s): R74.01 - Elevation of levels of liver transaminase levels Status: Acute (6) Methamphetamine addiction: Code(s): F15.20 - Other stimulant dependence, uncomplicated Status: Acute (7) Lymphedema of left lower extremity: Code(s): I89.0 - Lymphedema, not elsewhere classified Status: Acute (8) Hypertension: Qualifiers: Hypertension type: unspecified Qualified Code(s): I10 - Essential (primary) hypertension Code(s): I10 - Essential (primary) hypertension Status: Chronic DS: Summary Hospital Course Reason for hospitalization: periumbilical hernia ovarian cyst anemia diarrhea transaminitis methamphetamine addiction lymphedema of left lower extremity hypertension Hospital Course: 48-year-old female with a past medical history of gastric bypass, hysterectomy, cholecystectomy, appendectomy, abdominal surgery for small-bowel obstruction September 2023 and methamphetamine abuse who walked into to [facility] with abdominal pain. Transferred to [facility] for further evaluation. Not meeting sepsis criteria on admission. She was reporting intermittent bloody diarrhea, however this resolved during admission and she was unable to give us a fecal occult. Her H/H remained stable throughout admission. Abdomen/pelvis CT was obtained and showed moderate periumbilical hernia containing a loop of unobstructed small bowel, with surrounding edema/inflammatory change. Surgery was consulted and patient underwent a repair incarcerated incisional hernia with mesh, bilateral myofascial flap advancement, 6 cm on the right, 3 cm on the left with on 02/16. Patient remained in patient following the procedure until her pain was well controlled and she could tolerate a diet. She is to follow up with Dr. Quigley in 2 weeks. During admission patients LFTs were elevated, however liver appeared normal and patient was s/p cholecystectomy. Hepatitis panel was negative. Transaminitis was possibly meth induced, improved throughout admission and returned to normal limits. Encouraged methamphetamine cessation and care coordination gave her resources prior to discharge. Patient has chronic left lower extremity lymphedema. Venous dopplers were negative for DVT. The Abdomen/pelvis CT also showed a 3.5 cm simple appearing left ovarian cyst. Pelvic US showed bilateral septated cysts with internal echoes suggestive of hemorrhagic cysts. Status post hysterectomy. Otherwise, normal pelvic ultrasound. Patient is to follow up with her DIGITAL SPECIALIST. At time of discharge patient has no complaints. She denied chest pain, shortness of breath, nausea/vomiting. Abdominal pain was well controlled on current pain regimen and she was tolerating a diet. patient discharged home in stable condition. She is to follow up with surgery in 2 weeks and her primary care provider in 1 week. Status at Discharge Functional status at discharge: independent ambulation Time Spent with Patient Time attestation: Total time spent providing and/or coordinating discharge services: Time spent: Greater than 30 minutes Exam Narrative: AF HR 85 RR 18 Spo2 99 BP 132/76 General: female in no acute respiratory distress who is nontoxic appearing, lying semi recumbent in bed. HEENT: Normocephalic. Atraumatic. Extraocular movement intact. Sclera clear and anicteric. No facial asymmetry. Chest: Lungs are clear to auscultation bilaterally. No wheezes or crackles. CV: Heart was regular rate and rhythm. S1-S2. No murmurs, gallops, or rubs. Abd: Abdomen was soft. Tender to palpation around surgical site without guarding. Nondistended. Normal bowel sounds. Ext: No clubbing, cyanosis. 2+ DP pulses bilaterally. Lymphadenopathy to the left leg, improving. Neuro: Patient is alert and oriented x4. Cranial nerves 2-12 are intact. Speech is clear. Skin: Several healed abdominal surgery incisions. Midline incision with dressing in place. DS: Data Data Completed and Pending Completed studies during hospitalization: abdomen/pelvis CT transvaginal US venous doppler Labs on day of discharge: Labs from last 24 hours 02/22/24 02/22/24 02/22/24 12:04 05:11 05:05 WBC 7.2 RBC 3.97 L Hgb 10.3 L Hct 33.9 L MCV 85.4 MCH 25.9 L MCHC 30.4 L RDW 15.7 H Plt Count 354 MPV 11.6 H Immature Gran % (Auto) 0.4 Neut % (Auto) 56.3 Lymph % (Auto) 25.7 [place] % (Auto) 8.6 H Eos % (Auto) 8.2 H Baso % (Auto) 0.8 Lymph # (Auto) 1.84 [place] # (Auto) 0.6 Eos # (Auto) 0.6 H Baso # (Auto) 0.1 Abs Immat Gran (auto) 0.03 Absolute Neuts (auto) 4.0 Absolute Nucleated RBC 0.000 Nucleated RBC % 0.0 Sodium 139 Potassium 3.4 Chloride 103 Carbon Dioxide 32 H Anion Gap 4 BUN 15 Creatinine 1.40 H Estim Creat Clear Calc 46 Estimated GFR 40 L Glucose 100 POC Capillary Glucose 83 98 Calcium 8.2 L Total Bilirubin 0.6 AST 22 ALT 62 H Alkaline Phosphatase 328 H Total Protein 7.0 Albumin 3.4 L 02/21/24 02/21/24 23:28 17:07 WBC RBC Hgb Hct MCV MCH MCHC RDW Plt Count MPV Immature Gran % (Auto) Neut % (Auto) Lymph % (Auto) [place] % (Auto) Eos % (Auto) Baso % (Auto) Lymph # (Auto) [place] # (Auto) Eos # (Auto) Baso # (Auto) Abs Immat Gran (auto) Absolute Neuts (auto) Absolute Nucleated RBC Nucleated RBC % Sodium Potassium Chloride Carbon Dioxide Anion Gap BUN Creatinine Estim Creat Clear Calc Estimated GFR Glucose POC Capillary Glucose 111 H 127 H Calcium Total Bilirubin AST ALT Alkaline Phosphatase Total Protein Albumin Discharge Plan Discharge Attending physician on discharge: Juan Orellana Consulting providers: Parag Quigley Discharging Clinician: Alta Taylor Anticipated Discharge Date/Time: 02/22/24 15:34 Patient Disposition: Home, Self-Care Activity: may shower, no driving and other - see discharge instructions Diet: regular Discharge Instructions: Discharge instructions per surgery: * Follow-up with Dr. Quigley in 2 weeks. * Walk at least 3 times every day and more if tolerable. Stairs are okay. * No lifting more than 10 lbs until instructed differently by your surgeon. * No fast or jerky movements * No driving for 1 week * The gauze dressing from the JUWAN Drain should be removed for showering daily with mild soap and water, and then reapply a gauze dressing. By Tuesday (02/25/24) you can stop using gauze dressings and leave it open to air. * Wear the abdominal binder with activity during the day. You may remove this to rest or at night. * Call the surgeon if you have drainage or redness from your incision, vomiting, or fever. * You will be sent pain medication to the pharmacy that is a narcotic pain medication and should only be taken NEEDED and as prescribed. As your postoperative pain improves, you should start coming off of these medications and can switch to Tylenol or Ibuprofen over the counter. * Continue taking Miralax daily until your bowels are moving normally. You may also take stool softeners, which can all be purchased over the counter. Other discharge instructions: During your admission you were diagnosed with ovarian cysts as seen on imaging Follow up with your primary care provider or [facility] Patient was noted to be iron deficient and anemic Started on iron supplementation, attached is information on this medication Patient had significantly elevated liver panel during admission This resolved during your inpatient stay Continue to monitor this with your primary care provider Encourage methamphetamine cessation Given information by care coordination Encouraged to continue with yearly vaccinations Return to the emergency department if he developed sudden shortness of breath, chest pain, nausea, vomiting, upset stomach or intractable diarrhea Return to the emergency department if you develop fever greater than 101.5 Follow-up with the primary care physician within 1-2 weeks Thank you for choosing [facility] for your healthcare needs Patient Instructions: Antibiotic Form, Iron Supplements (By mouth), How to Stop Smoking (DC), Iron Deficiency Anemia (GEN) Patient Language: Lithuanian Stand Alone Forms: General Discharge Information Follow-up/Referrals: Parag Quigley MD [Physician] - 2 Weeks Tereza,HARVEY FarmerP [Primary Care Provider] - 1 Week Discharge Medications: New oxycodone-acetaminophen 5-325 mg Tablet 1 tablet PO Q4-6H PRN (Reason: Pain Rated 4-6) Qty: 40 0RF Continued furosemide 40 mg tablet 40 mg PO DAILY Patient Comments: HAS BEEN OUT FOR 2.5 WEEKS amlodipine 5 mg tablet 5 mg PO DAILY Patient Comments: OUT OF RX 2.5 WEEKS pantoprazole 40 mg tablet,delayed release (DR/EC) 40 mg PO DAILY Rx Instructions: RX OUT X 2.5 WEEKS ferrous sulfate [FeroSul] 325 mg (65 mg iron) tablet 325 mg PO DAILY Patient Comments: RX OUT FOR 2.5 WEEKS folic acid 1 mg tablet 1 mg PO DAILY Patient Comments: OUT OF RX 2.5 WEEKS albuterol sulfate 90 mcg/actuation HFA aerosol inhaler 1 puff INHALATION Q4H PRN (Reason: Shortness Of Breath Or Wheezing) Date of admission: 02/16/24 09:08 Primary Care Provider: Tereza,Rosenda Bundy Admitting Provider: Sofi Slater Attending physician on admission: Alta Taylor Condition: Stable Hospitalist MIPS Heart Failure (Exclusion) Patient has history of Heart Transplant or Left Ventricular Assistive Device?: No IF YES, STOP HERE Heart Failure (Qualifier) Patient has current or prior documentation of LVEF less than or equal to 40%, or mod/servere depressed LVSF?: No IF NO, STOP HERE
[2024-02-22] MEDS: oxyCODONE/ACETAMINOPHEN (*CRX) 5-325 MG TABLET 1 TABLET PO (17:04)
== END 2024-02-22 18:05 | disposition home or self-care (01) | DRG 227 ==
PROVIDERS: Nurse Practitioner Family; Student in an Organized Health Care Education/Training Program; Surgery; Admitting Provider Internal Medicine; PCP Nurse Practitioner Family; Visit Provider Internal Medicine
PROC: 0WQF0ZZ Repair Abdominal Wall, Open Approach (ICD-10-PCS; principal; 2024-02-17 12:00)
DX: K43.0 Incisional hernia with obstruction, without gangrene (principal); K42.9 Umbilical hernia without obstruction or gangrene; I12.9 Hypertensive chronic kidney disease with stage 1 through stage 4 chronic kidney disease, or unspecified chronic kidney disease; N18.9 Chronic kidney disease, unspecified; I89.0 Lymphedema, not elsewhere classified; D64.9 Anemia, unspecified; N83.202 Unspecified ovarian cyst, left side; R19.7 Diarrhea, unspecified; F15.20 Other stimulant dependence, uncomplicated; F17.210 Nicotine dependence, cigarettes, uncomplicated; Z98.84 Bariatric surgery status
CPT/HCPCS: 36415; 76830; 80053; 80074; 82948; 83735; 85025; 86850; 86900; 86901; 86923; 93971; A9270; C1781; G0378; G0379; J0690; J1100; J1171; J1650; J2003; J2250; J2270; J2405; J2704; J3010; J3360; J7030; J7120